=== PATIENT | female | born 1970 | race American Indian/Alaskan Native ===

== ENCOUNTER 2025-03-03 21:57 | Emergency (ER) | payer MEDICAID, SELFPAY ==
[2025-03-03 22:03] VITALS: BP 156/115; PULSE 96; RESP 19; TEMP 37.1; O2SAT 97; BMI 61.6
[2025-03-03 22:05] VITALS: PULSE 92; RESP 18; O2SAT 98; BMI 61.6
--- NOTE | 2025-03-03 22:38 | PD.EDSOB ---
ED SOB =RME/HPI General Chief Complaint: Dental/Oral/Throat Stated Complaint: THROAT IRRITATION Time Seen by Provider: 03/03/25 22:03 Arrival date/time: 03/03/25 21:57 RME / HPI RME / HPI Narrative: DR. GRANT MAIN ED EVALUATION: 54 y/o female with Hx of Cerebrovascular Accident, Atrial Fibrillation, Congestive Heart Failure, Hypertension, Chronic Obstructive Pulmonary Disease (COPD), Asthma, Gastroesophageal Reflux Disease, Renal Disease, Arthritis, Diabetes Mellitus Type 2, Anemia, Depression and Anxiety PEYMAN presents to ED c/o phlegm stuck in her throat x 1 day. Patient is not on medication to loosen the phlegm, but has tried to cough it up all day. She has been able to eat normally. Patient denies fever, cough, runny nose or any other associated symptoms or aggravating factors. No modifying factors, no radiation, no migration. No pain reported overall. Related Data Allergies Allergy/AdvReac Type Severity Reaction Status Date / Time Penicillins Allergy Verified 02/24/23 15:22 Review of Systems Review of Systems Systems Reviewed: All systems reviewed, normal except as documented Narrative Review of Systems: Gen: No fever, no chills, no weight loss, no weight loss EYES: No discharge, no visual changes, no pain HEENT: No ear pain, no congestion, no runny nose, no sore throat, phlegm stuck in throat PULM: No shortness of breath, no cough, no congestion CV: No chest pain, no dyspnea on exertion, no palpitations GI: No nausea, no vomiting, no diarrhea, no pain, no constipation : No frequency, no urgency, no dysuria Musc/skel: No joint pain, no back pain Skin: No rash Psyc: No hallucinations, no depression Heme/Lymph: No easy bleeding or bruising tendencies Neuro: No weakness, no headache Past Medical History Past Medical History NEUROLOGIC: Positive Cerebrovascular Accident CARDIAC: Positive Atrial Fibrillation, Congestive Heart Failure and Hypertension RESPIRATORY: Positive Chronic Obstructive Pulmonary Disease (COPD) and Asthma GASTROINTESTINAL: Positive Gastroesophageal Reflux Disease GENITOURINARY: Positive Renal Disease MUSCULOSKELETAL: Positive Arthritis ENDOCRINE: Positive Diabetes Mellitus Type 2 HEMATOLOGIC: Positive Anemia PSYCHO/SOCIAL: Positive Depression and Anxiety ED Exam Narrative Physical exam: GENERAL APPEARANCE: alert and oriented x 4, well-developed, well-nourished, no acute distress, Positive morbidly obese VITALS: All vitals were reviewed and the pulse ox is 96% on room air, which is normal according to my interpretation. HEENT: Normocephalic, atraumatic; pupils equal, round, reactive to light; EOMI; mucous membranes pink, moist; oropharynx clear NECK: Supple LUNGS: CTABL; no wheezes, no rales, no rhonchi HEART: Regular rate, regular rhythm; normal S1, S2; no murmurs ABDOMEN: non distended; normal BS; soft, no tenderness, no guarding, no rebound; no masses, no organomegaly, no hernia BACK: no CVA tenderness EXTREMITIES: atraumatic; no edema NEUROLOGIC: awake; alert and oriented x4; cranial nerves II-XII grossly intact; no focal sensory or motor deficits PSYCHIATRIC: appropriate mood and affect SKIN: warm, dry, normal color; no rashes Course Course Course Narrative: 2236: Chest x-ray, XR soft tissue neck, Guaifensin, and Loratadine ordered. Quality Measures none Orders Category Date Time Status XR chest 1V portable Stat Exams 03/03/25 22:37 Completed XR soft tissue neck Stat Exams 03/03/25 22:37 Completed guaiFENesin SYRUP [Robitussin Syrup] Med 03/03/25 22:37 Discontinued 200 mg PO X1 ONE lorataDINE [Claritin] Med 03/03/25 22:37 Discontinued 10 mg PO X1 ONE lorataDINE [Claritin] Med 03/03/25 23:00 Discontinued 10 mg PO X1 ONE Vital Signs Vital signs: Vital Signs Temperature 98.7 F 03/03/25 22:03 Pulse Rate 96 03/03/25 22:03 Respiratory Rate 19 03/03/25 22:03 Blood Pressure 156/115 H 03/03/25 22:03 Pulse Oximetry (%) 97 03/03/25 22:03 Oxygen Delivery Method Nasal Cannula 03/03/25 22:03 Oxygen Flow Rate 2 03/03/25 22:03 Shortness of Breath / Dyspnea MDM Narrative MDM Narrative:: Scribe Attestation: Francheska Escobar, am scribing for and in the presence of Dr. Grant. Provider Notation: Although this document has been carefully reviewed, there may still be some phonetic and other typographical errors. These errors are purely grammatical due to imperfections in the software program and should not be construed in any way to compromise the substance of the patient's medical care during this visit. Patient data External records reviewed:: [facility] previous records (Prior Ed records reviewed from 02/24/23. Patient was seen for Anemia.) and EMS form Clinical information provided by:: patient and EMS Social determinants that could affect healthcare access:: none Patient has the following chronic illnesses:: Cerebrovascular Accident, Atrial Fibrillation, Congestive Heart Failure, Hypertension, Chronic Obstructive Pulmonary Disease (COPD), Asthma, Gastroesophageal Reflux Disease, Renal Disease, Arthritis, Diabetes Mellitus Type 2, Anemia, Depression and Anxiety How is presenting disease/condition affected by chronic disease/condition?: exacerbated by Evaluation data The following diagnostics were reviewed and interpreted by me:: radiology exam(s) Lab and/or radiology exams considered but not ordered:: None Interpretation Summary: RADIOLOGY Chest X-Ray: CXR is ordered for determining etiology of I have personally reviewed the radiology data and agree with the radiologist's interpretation below: Patient: JOSE VALENTE Record#: [id number] Birthdate: 1970 Age/Sex: 54 / F Location: [facility] Attending Dr: Ordering Physician: Kriss Grant MD Date of Service: 03/03/25 Procedure(s): XR chest 1V portable Accession Number(s): [id number] cc: Gigi Hawthorne MD; NO PRIMARY/FAMILY,PHYSICIAN; Kriss Grant MD~ Examination: AP chest single view TECHNIQUE: AP portable upright chest single view Exam date time: March 03, 2025, 11:00 PM INDICATIONS: Coughing today. FINDINGS: Normal heart size [id number] elevation right hemidiaphragm No pneumonia No opaque foreign body IMPRESSION: No pneumonia identified No opaque foreign body Dictated By: Gigi Hawthorne MD Signed By: <Electronically signed by Gigi Hawthorne MD in OV> 03/03/25 2322 XR Soft Tissue Neck: XR soft tissue neck is ordered for determining etiology of swallowed foreign body. I have personally reviewed the radiology data and agree with the radiologist's interpretation below: [facility] [address] [place] [address] [place] [facility] Report Signed Patient: JOSE VALENTE Record#: [id number] Birthdate: 1970 Age/Sex: 54 / F Location: [facility] Attending Dr: Ordering Physician: Kriss Grant MD Date of Service: 03/03/25 Procedure(s): XR soft tissue neck Accession Number(s): [id number] cc: Gigi Hawthorne MD; NO PRIMARY/FAMILY,PHYSICIAN; Kriss Grant MD~ Examination: AP lateral soft tissue neck 2 views Technique AP lateral soft tissue neck 2 views Standing time: March 03, 2025 1059 hours INDICATIONS: Coughing today, ingested foreign body FINDINGS: Normal epiglottis. No opaque foreign body IMPRESSION: No opaque foreign body seen Dictated By: Gigi Hawthorne MD Signed By: <Electronically signed by Gigi Hawthorne MD in OV> 03/03/25 7611 Medications / Prescriptions Medications or Prescriptions considered but not ordered:: None Medication administrations:: Medication Administration History Discontinued Medications Guaifenesin (Guaifenesin Syrup 200 Mg/10 Ml Ud) 200 mg PO X1 ONE; Protocol Stop: 03/03/25 22:38 Last Admin: 03/03/25 23:18 Dose: 200 mg Documented By: EF Loratadine (Loratadine Liqd 1 Mg/1 Ml) 10 mg PO X1 ONE Stop: 03/03/25 22:38 Last Admin: 03/03/25 23:20 Dose: Not Given Documented By: EF Non-Admin Reason: Cancelled by Provider Loratadine (Loratadine 10 Mg Tablet) 10 mg PO X1 ONE Stop: 03/03/25 23:01 Last Admin: 03/03/25 23:18 Dose: 10 mg Documented By: EF See above if any Consultations Consultation(s) initiated? (list below): No Diagnosis Shortness of Breath Differential Diagnosis: other (Throat irritation vs Pharyngitis vs FB vs COPD exacerbation) Most likely diagnosis given after review of the tests above:: Throat irritation, Phlegm in throat. Admission Indicated Admission indicated?: not indicated Explain why admission is indicated or not indicated:: Did not meet admission criteria. Admission Request Was there a request for admission?: No Disposition Plan Disposition Plan: Discharge Discharge Attestation Discharge Attestation: The patient and all family members were given an opportunity to ask questions and understood the discharge instructions. Discharge instructions specifically effects, indications for sooner follow up or return to the emergency department, and the expected course of current diagnosis. Patient condition: Stable Discharge Plan Plan Patient Disposition: HOME (Self Care) Prescriptions/Referrals Referrals: No Primary/Family,Physician [Primary Care Provider] - In 1 week Problem List Clinical Impression: Throat irritation, Phlegm in throat Patient/Caregiver Discharge Instructions Education Materials: ED Symptoms With Uncertain Cause Print Language: Kinyarwanda Stand Alone Forms: Shonna Award Info., Patient Portal Info Letter
[2025-03-03 23:17] VITALS: BP 135/87; PULSE 96; RESP 17; TEMP 37.1; O2SAT 97
[2025-03-03] MEDS: guaiFENesin SYRUP 200 MG/10 ML UDC PO (23:18)
[2025-03-03] MEDS: lorataDINE 10 MG TABLET PO (23:18)
[2025-03-04 00:39] VITALS: BP 130/77; PULSE 94; RESP 15; TEMP 37; O2SAT 96
--- NOTE | 2025-03-04 01:25 | PC.NURSE ---
report called to evan head via telephone from [facility]
== END 2025-03-04 01:25 | disposition home or self-care (01) ==
PROVIDERS: Emergency Provider Emergency Medicine
DX: R07.0 Pain in throat (principal); T18.9XXA Foreign body of alimentary tract, part unspecified, initial encounter; W44.9XXA Unspecified foreign body entering into or through a natural orifice, initial encounter; J44.89 Other specified chronic obstructive pulmonary disease
CPT/HCPCS: 70360; 71045; 99283; A9270

== ENCOUNTER 2025-07-26 04:27 | Emergency (ER) | payer MEDICAID, SELFPAY ==
[2025-07-26] VITALS (9 sets, daily range): BP systolic 122–136; BP diastolic 77–106; PULSE 84–94; RESP 16–20; TEMP 36.5–37.2; O2SAT 94–97; BMI 61.4
--- NOTE | 2025-07-26 04:45 | EKG_ITS ---
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
--- NOTE | 2025-07-26 04:49 | XR_ITS ---
Examination: AP chest single view Technique one AP portable upright chest single view Date and time: July 26, 2025, 0521 hrs., Comparison March 03, 2025 Indications: Shortness of breath today Findings: No significant cardiac enlargement. Moderate elevation right hemidiaphragm. Moderate vascular congestion. No lobar pneumonia or pulmonary edema. Impression: Moderate vascular congestion.
--- NOTE | 2025-07-26 04:51 | EDNOTE_ITS ---
ED Chest Pain RME/HPI General Chief Complaint: Chest Pain Stated Complaint: CHEST PAIN Time Seen by Provider: 07/26/25 04:30 Source: patient and EMS Arrival date/time: 07/26/25 04:27 Mode of arrival: EMS RME / HPI RME / HPI narrative: Ms. Smith is a 55-year-old female with past medical history of CVA, atrial fibrillation on Eliquis, type 2 diabetes mellitus, morbid obesity, CKD stage III, GERD, congestive heart failure, osteoarthritis and COPD/asthma on 3 L at baseline who presented to [facility] emergency department with a chief complaint of chest pain. Patient reported that she woke up around 3 AM with the complaint of sharp pain in her left side of her chest radiating to her left arm, denies any incidence of similar pain in the past, endorses mild nausea associated with the pain. Patient denies any shortness of breath, palpitations, syncope, near syncope and dizziness. Patient reported that her pain has improved, Nitropatch noted on chest was given by EMS. Related Data Allergies Allergy/AdvReac Type Severity Reaction Status Date / Time Penicillins Allergy Verified 02/24/23 15:22 Review of Systems Review of Systems Systems Reviewed: All systems reviewed, normal except as documented Past Medical History Past Medical History NEUROLOGIC: Positive Cerebrovascular Accident CARDIAC: Positive Atrial Fibrillation, Congestive Heart Failure and Hypertension RESPIRATORY: Positive Chronic Obstructive Pulmonary Disease (COPD) and Asthma GASTROINTESTINAL: Positive Gastroesophageal Reflux Disease GENITOURINARY: Positive Renal Disease MUSCULOSKELETAL: Positive Arthritis ENDOCRINE: Positive Diabetes Mellitus Type 2 HEMATOLOGIC: Positive Anemia PSYCHO/SOCIAL: Positive Depression and Anxiety ED Exam Narrative Physical exam: Physical Exam General: Awake and in no acute distress. Conversational and non-toxic appearing. HEENT: Normocephalic, atraumatic, mucous membranes moist. On 3 L nasal cannula. Heart: Regular rate and rhythm, no murmurs. Lungs: Clear to auscultation with no wheezing or crackles. Limited exam due to body habitus. Abdomen: Soft, nondistended, obese, nontender, positive bowel sounds. ?No guarding or rebound tenderness. Neurologic: Alert and oriented x3, no gross neurological deficit, and patient able to move all 4 extremities. Extremities: Trace bilateral lower extremity edema Skin: No rash or ecchymoses. Course Quality Measures none Orders Category Date Time Status CT Screening NOW Care 07/26/25 07:29 Completed Sample Clerk Q4H START 00 Care 07/26/25 04:49 Completed Continuous Pulse Oximetry NOW Care 07/26/25 04:49 Completed EKG (ED ONLY) *Do not use* NOW Care 07/26/25 04:47 Completed Fingerstick [Bedside Blood Glucose] NOW Care 07/26/25 04:49 Completed Insert IV NOW Care 07/26/25 04:[address] angio chest abdomen pelvis Stat Exams 07/26/25 07:28 Completed CXRP [XR chest 1V portable] Stat Exams 07/26/25 04:49 Completed EKG (ED Only) Stat Exams 07/26/25 04:45 Draft BNP [B-Type Natriuretic Peptide] Stat Lab 07/26/25 04:30 Completed CBC Stat Lab 07/26/25 04:30 Completed CMP [Comprehensive Metabolic Panel] Stat Lab 07/26/25 04:30 Completed HCG,Qualitative Serum Stat Lab 07/26/25 07:33 Completed INR [Prothrombin Time with INR] Stat Lab 07/26/25 04:30 Completed Lactate (Lactic Acid) Stat Lab 07/26/25 04:30 Completed Magnesium Stat Lab 07/26/25 04:30 Completed PTT [Partial Thromboplastin Time] Stat Lab 07/26/25 04:30 Completed Procalcitonin Stat Lab 07/26/25 04:30 Completed Troponin I Stat Lab 07/26/25 04:30 Completed Troponin I Stat Lab 07/26/25 07:33 Completed Magnesium Sulfate 4 GM Ivpb [Magnesium Sulfate Ivpb] Med 07/26/25 06:11 Discontinued 4 gm in 50 ml IV X1 Vital Signs Vital signs: Vital Signs Temperature 98.4 F 07/26/25 04:41 Pulse Rate 91 07/26/25 04:41 Respiratory Rate 16 07/26/25 04:41 Blood Pressure 126/77 07/26/25 04:41 Pulse Oximetry (%) 94 L 07/26/25 04:41 Oxygen Delivery Method Nasal Cannula 07/26/25 04:41 Oxygen Flow Rate 3 07/26/25 04:41 Chest Pain MDM Narrative MDM Narrative:: #ACS workup #Cardiac chest pain 55-year-old female with past medical history of CVA, atrial fibrillation on Eliquis, type 2 diabetes mellitus, morbid obesity, CKD stage III, GERD, congestive heart failure, osteoarthritis and COPD/asthma on 3 L presented with cardiac chest pain. EKG at bedside shows unifocal PVCs, sinus rhythm, rate [address]-T changes Workup ordered CBC, CMP, troponin, lactate, Pro-Matty, BNP, PTT, INR, magnesium and chest x-ray. Patient placed on nurse monitoring, vitals reviewed stable. Patient will be signed off to [facility] ER physician Dr. Rivera for further evaluation and management. Case discussed with Attending Physician Dr. Efrain Marshall MD Internal Medicine PGY-2 Disclaimer: This note was dictated by speech recognition. Minor errors in supervisor microbiology technologists may be present due to voice recognition software. Patient data External records reviewed:: [facility] previous records, EMS form and [facility] records Clinical information provided by:: patient and EMS Social determinants that could affect healthcare access:: none Patient has the following chronic illnesses:: As Above How is presenting disease/condition affected by chronic disease/condition?: exacerbated by Evaluation data The following diagnostics were reviewed and interpreted by me:: EKG tracing(s) Lab and/or radiology exams considered but not ordered:: None Interpretation Summary: EKG at bedside shows unifocal PVCs, sinus rhythm, rate [address]-T changes Medications / Prescriptions Medications or Prescriptions considered but not ordered:: None Medication administrations:: Medication Administration History Discontinued Medications Magnesium Sulfate (Magnesium Sulfate Ivpb) 4 gm in 50 mls @ 12.5 mls/hr IV X1 ONE Stop: 07/26/25 10:10 Last Infusion: 07/26/25 10:40 Dose: Infused Documented By: Admin: 07/26/25 06:37 Dose: 12.5 mls/hr Documented By: THADDEUS As Above Consultations Consultation(s) initiated? (list below): No Diagnosis Chest Pain Differential Diagnosis: stable angina, unstable angina pectoris and atypical chest pain Most likely diagnosis given after review of the tests above:: Pending Workup Admission Indicated Admission indicated?: not indicated Admission Request Was there a request for admission?: No Disposition Plan Disposition Plan: other (specify) (Patient will be signed out to Dr. Rivera, [facility] ED physician) Discharge Plan Plan Patient Disposition: HOME (Self Care) Problem List Clinical Impression: Chest pain Patient/Caregiver Discharge Instructions Education Materials: Measuring Your Pain Additional Instructions: Please establish care with a financial services officer this week. Please return immediately if you develop recurrence of chest pain, shortness of breath or any other symptom of concern. Please follow-up with your primary care doctor as well within the next 1 to 2 days. Print Language: Vietnamese Stand Alone Forms: Shonna Award Info., Patient Portal Info Letter
[2025-07-26 05:23] LABS: Lactate (Lactic Acid) 2.0 mMol/L (0.4-2.0)
[2025-07-26 05:28] LABS: Basophils # (Auto) 0.0 Thou/mm3 (0.0-0.2); Basophils % (Auto) 0 % (0-2.5); Eosinophils # (Auto) 0.4 Thou/mm3 (0.0-0.5); Eosinophils % (Auto) 5 % (0-10); Hematocrit 32.2 % (36.0-46.0); Hemoglobin 9.9 g/dL (12.0-16.0); Immature Granulocytes Auto 0.02 Thou/mm3 (0.00-0.00); Lymphocytes # (Auto) 2.0 Thou/mm3 (1.0-4.8); Lymphocytes % (Auto) 24 % (10-50); Mean Corpuscular HGB Conc 30.7 g/dl (31.0-37.0); Mean Corpuscular Hemoglobin 24.3 pg (25.0-35.0); Mean Corpuscular Volume 79 fL (80-100); Monocytes # (Auto) 0.5 Thou/mm3 (0.0-0.8); Monocytes % (Auto) 6 % (0-12); Neutrophils # (Auto) 5.3 Thou/mm3 (1.8-7.7); Neutrophils % (Auto) 64 % (37-80); Nucleated Red Blood Cell # 0.00 Thou/mm3 (0.00-0.00); Nucleated Red Blood Cell % 0 /100 WBC (0); Platelet Count 262 Thou/mm3 (140-440); RDW Standard Deviation 45.2 fL (36.4-46.3); Red Blood Count 4.08 Miln/mm3 (4.00-5.20); White Blood Count 8.3 Thou/mm3 (3.6-11.0)
[2025-07-26 05:40] LABS: INR 1.0 (0.9-1.3); Partial Thromboplastin Time 27.7 Seconds (22.0-36.0); Prothrombin Time 11.4 Seconds (9.0-12.2)
[2025-07-26 05:55] LABS: Alanine Aminotransferase 27 U/L (10-49); Albumin, Serum 3.6 gm/dL (3.5-5.0); Albumin/Globulin Ratio 1.2 (1.2-2.2); Alkaline Phosphatase 109 U/L (46-116); Anion Gap 6 (7-16); Aspartate Amino Transferase 33 U/L (0-34); BUN/Creatinine Ratio 17 Ratio (12-20); Bilirubin,Total 0.4 mg/dL (0.3-1.2); Blood Urea Nitrogen 15 mg/dL (9-23); Calcium 9.2 mg/dL (8.3-10.6); Calcium (Corrected) 9.5 mg/dL (8.5-10.1); Carbon Dioxide 36.0 mMol/L (20.0-31.0); Chloride 96 mMol/L (98-107); Creatinine (Component) 0.9 mg/dL (0.6-1.3); Estimated Creatinine Clearance 97.7 mL/min (>60); Globulin 2.9 gm/dL (2.3-3.5); Glucose 250 mg/dL (74-106); Magnesium 1.4 mg/dL (1.6-2.6); Osmolality,Calculated 284 (275-295); Potassium 3.7 mMol/L (3.4-5.1); Procalcitonin 0.05 ng/ml (0.0-0.49); Sodium 138 mMol/L (136-145); Total Protein 6.5 gm/dL (5.7-8.2); Troponin I < 0.020 ng/mL (0.0-0.045); eGFR > 60 See Note
[2025-07-26 06:03] LABS: B-Type Natriuretic Peptide 27 pg/mL (0-100)
[2025-07-26] MEDS: Magnesium Sulfate 4 GM Ivpb 4 GM/50 ML BAG IV (06:37)
--- NOTE | 2025-07-26 07:22 | EDNOTE_ITS ---
Emergency Room Addendum Addendum Narrative: Patient is a 55-year-old female that is in the emergency department with chest pain. Patient has a history of stroke, A-fib on Eliquis, diabetes, morbid obesity chronic kidney disease CHF, COPD she is always on 3 L of oxygen at home. Prior provider evaluated patient. Ordered labs EKG chest x-ray. Patient's chest pain resolved with nitroglycerin prior to arrival. EKG performed this morning at 4:47 AM notable for sinus rhythm with frequent PVCs. Normal intervals, nonspecific T wave changes, not a cardiac alert. Labs without evidence of leukocytosis, no left shift, hemoglobin is 9.9 improved from prior. No significant acute electrolyte abnormalities patient is hypomagnesemic, repleted in the emergency department. No transaminitis. Troponin not elevated on initial assessment. BNP normal. Procalcitonin not elevated. Chest x-ray with high riding right diaphragm, also widened mediastinum. Ordered CT angio of the chest abdomen and pelvis. On my assessment, patient is resting comfortably in bed, not in distress. States that her chest pain has since resolved. She continues to have frequent PVCs on the monitor. Patient states that she does not know if she has had a sanitation tank washer in the past. She has never had a heart attack. With regards to her stroke, patient is able to move all 4 extremities however the left lower extremity she is not able to flex her foot. Patient lives at convalescent home. Delta troponin without any elevation. On multiple reevaluations, patient hemodynamically stable not in distress chest pain has not recurred. CT chest abdomen pelvis did not show any evidence of dissection or pulmonary embolus, no other acute abnormalities. Extensive conversation with the patient, patient feels comfortable being discharged back to her convalescent home. I requested the patient follow-up with her sanitation tank washer this week and her primary care doctor within the next 1 to 2 days. Patient is to return immediately if she has worsening symptoms or new symptoms of concern.
--- NOTE | 2025-07-26 07:28 | XR_ITS ---
Examination: CTA chest, with intravenous contrast. CTA abdomen, with intravenous contrast. CTA pelvis, with intravenous contrast. 2-D sagittal and coronal reconstructions. 3-D reconstructions. Date and time of exam: July 26, 2025, 1059 hours INDICATIONS: Onset chest and abdominal pain today with shortness of breath CTDI vol (mgy) 51.2 DLP (MGycm) 1446 Technique: Multiple CTA images, 2.0 mm slice thickness, obtained chest, abdomen, pelvis, with the high-resolution 64 slice scanner. 100 cc Isovue-370 is administered intravenously. Sagittal and coronal 2-D reconstructions are obtained. 3-D reconstructions, angiographic images are obtained. 3-D postprocessing, including vascular maximum intensity projections. Low dose protocols were performed. One or more of the following dose reduction techniques were used; automated exposure control, adjustment of the mA and/or KV according to patient size, use of iterative reconstruction technique. Findings: No thoracic aortic aneurysm dilatation or dissection Pulmonary artery segments are not enlarged No pulmonary artery filling defects No pneumonia pulmonary edema or pleural disease Minor atelectasis in the lower lung zones Localized weakening of the lateral abdominal wall on the right, the skin images do not include major portions of the right lateral abdomen No focal liver lesions, hepatomegaly 19 cm No gallstones Spleen not enlarged No pancreatic or adrenal mass Moderate scarring both kidneys, no hydronephrosis No abdominal aortic aneurysmal dilatation, no abdominal aortic dissection No bowel obstruction Atrophic uterus Urinary bladder intact Severe osteopenia IMPRESSION: No thoracic or abdominal aortic aneurysm or dissection Negative for pulmonary artery emboli No pneumonia pulmonary edema or pleural disease Limited study, the right lateral abdomen is not included on this exam secondary to patient's size No bowel obstruction Moderate scarring both kidneys
[2025-07-26 07:56] LABS: Troponin I < 0.020 ng/mL (0.0-0.045)
[2025-07-26 08:56] LABS: HCG,Qualitative Serum Negative
--- NOTE | 2025-07-26 10:50 | PC.NURSE ---
Patient to CT
--- NOTE | 2025-07-26 12:40 | PC.SS ---
Addendum entered by LINWOOD Roque 07/26/25 14:07: [employer] FACILITY OPERATOR received phone call from [employer], Luba from [employer] provided ETA 1530. [employer]ILITY OPERATOR notified bedside nurse Tonja who is covering bedside nurse Maria A of ETA 1530. Original Note: [employer] FACILITY OPERATOR was informed by bedside nurse that patient needs transportation, patient is on 3L of oxygen. [employer] FACILITY OPERATOR contacted [facility] to schedule transportation. [employer] FACILITY OPERATOR submitted PCS form via [employer], pending ETA.
--- NOTE | 2025-07-26 12:40 | PC.NURSE ---
PATIENT CLEANED AND CHANGED NEW LINEN PLACED. CONTACTED BONE PROCESS OPERATOR TO SET PATIENT UP FOR TRANSPORT BACK TO FACILITY.
--- NOTE | 2025-07-26 15:10 | PC.NURSE ---
REPORT CALLED TO [facility] TRANSITIONAL STAFF VLAD
== END 2025-07-26 15:14 | disposition home or self-care (01) ==
PROVIDERS: Emergency Provider Emergency Medicine
DX: R07.9 Chest pain, unspecified (principal); Z86.73 Personal history of transient ischemic attack (TIA), and cerebral infarction without residual deficits; N18.30 Chronic kidney disease, stage 3 unspecified; E11.22 Type 2 diabetes mellitus with diabetic chronic kidney disease; I48.91 Unspecified atrial fibrillation; E66.01 Morbid (severe) obesity due to excess calories; I50.9 Heart failure, unspecified; M19.90 Unspecified osteoarthritis, unspecified site; J44.89 Other specified chronic obstructive pulmonary disease; I49.3 Ventricular premature depolarization
CPT/HCPCS: 36415; 71045; 71275; 74174; 80053; 83605; 83735; 83880; 84145; 84484; 84703; 85025; 85610; 85730; 93005; 96365; 96366; 99284; A4649; J3475; Q9967

== ENCOUNTER 2025-08-13 17:08 | Emergency (ER) | payer MEDICAID, SELFPAY ==
[2025-08-13] VITALS (7 sets, daily range): BP systolic 106–123; BP diastolic 67–77; PULSE 90–98; RESP 12–19; TEMP 36.6–36.9; O2SAT 97–99; BMI 61.4
--- NOTE | 2025-08-13 18:22 | PD.EDVAGBL ---
ED OB Contraction Preg RMI/HPI General Chief complaint: Vaginal Bleeding Stated complaint: vaginal bleeding Time Seen by Provider: 08/13/25 18:22 Arrival date/time: 08/13/25 17:08 RME / HPI RME / HPI Narrative: DR. MCKEON MAIN ED EVALUATION: Patient presenting with ongoing vaginal bleeding x 2 weeks with passage of clots. Patient is post-menopausal at age 42 and reports similar episode several months ago with spontaneous resolution. Denies pelvic pain or cramping, although reports dizziness and lightheadedness. Denies fever, chills, or dysuria. PMH: HTN, Baseline LLE weakness PSH: Hernia repair, x3 Allergies: Penicillin (anaphylactic) Social: Non-drinker, non-smoker, no illicit drug abuse Related Data Allergies Allergy/AdvReac Type Severity Reaction Status Date / Time Penicillins Allergy Verified 08/13/25 17:18 Review of Systems Review of Systems Systems Reviewed: All systems reviewed, normal except as documented Past Medical History Past Medical History NEUROLOGIC: Positive Cerebrovascular Accident CARDIAC: Positive Atrial Fibrillation, Congestive Heart Failure and Hypertension RESPIRATORY: Positive Chronic Obstructive Pulmonary Disease (COPD) GASTROINTESTINAL: Positive Gastroesophageal Reflux Disease and Obesity MUSCULOSKELETAL: Positive Arthritis HEMATOLOGIC: Positive Anemia PSYCHO/SOCIAL: Positive Depression and Anxiety ED Exam Narrative Physical exam: GEN. APPEARANCE: The patient is alert awake oriented X-3 in no distress, lying down comfortably, does not look ill/toxic. Patient has good eye contact. Patient is cooperative. VITALS: All vitals were reviewed and the pulse ox is 99% on 3L/min via NC which is normal according to my interpretation. HEENT: Normocephalic, atraumatic. Pupils are equal and reactive. Oral mucosa is moist. Patent Nares NECK: Supple, nontender, no thyromegaly, no meningismus, no JVD, no step offs CHEST: Symmetrical, atraumatic, and with equal expansion , Nontender on palpation no deformity and no crepitus. CARDIOVASCULAR: Heart regular rhythm no murmur or gallop rub or extra beats. LUNGS: Clear to auscultation bilaterally with symmetrical chest rise. No laboring tachypnea or wheezing. No intercostal subcostal retraction. No rales and no rhonchi. ABDOMEN: Soft, obese, nontender to palpation, no guarding or rebound tenderness. There are no abnormal masses palpated. Active and normal bowel sounds. EXTREMITIES: Nontender. No edema. No cyanosis. Patient is able to move all 4 extremities well, with full ROM and good CSM. SKIN: Warm and dry, no jaundice or rashes noted. MUSCULOSKELETAL: No lubar or midline bony tenderness. There is no CVA tenderness. No paraspinal muscle spasm or tenderness. NEURO: Patient is HINDS x 4, Cranial nerves II through XII grossly intact. 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 PSYCHIATRIC: Patient is in normal mood and affect, cooperative, no SI or HI or hallucinations. Course Quality Measures none Orders Category Date Time Status Sound Designer NOW Care 08/13/25 19:43 Active Insert IV NOW Care 08/13/25 18:13 Active Transfuse,blood/blood products NOW Care 08/13/25 19:42 Active US pelvic complete Stat Exams 08/13/25 18:37 Completed Antibody Identification Stat Lab 08/13/25 18:14 Results Beta HCG,Quantitative Stat Lab 08/13/25 18:14 Completed CBC [CBC] Stat Lab 08/13/25 18:14 Completed CMP [Comprehensive Metabolic Panel] Stat Lab 08/13/25 18:14 Completed Path Review Blood Smear Stat Lab 08/13/25 18:14 Completed Red Blood Cells Stat Lab 08/13/25 18:14 Results Type and Screen Stat Lab 08/13/25 18:14 Results Urinalysis, C/S if Indicated Stat Lab 08/13/25 18:23 Ordered Sodium Chloride 0.9% 500 ml [Ns] 500 ml Med 08/13/25 18:23 Discontinued IV 250 mls/hr Vital Signs Vital signs: Vital Signs Temperature 97.9 F 08/13/25 17:15 Pulse Rate 98 08/13/25 17:15 Respiratory Rate 19 08/13/25 17:15 Blood Pressure 123/77 08/13/25 17:15 Pulse Oximetry (%) 97 08/13/25 17:15 Oxygen Delivery Method Nasal Cannula 08/13/25 17:15 Oxygen Flow Rate 3 08/13/25 17:15 Vaginal Bleeding MDM Narrative MDM Narrative: Scribe Attestation: IFrancheska, am scribing for and in the presence of Dr. Mckeon. Provider Notation: Although this document has been carefully reviewed, there may still be some phonetic and other typographical errors. These errors are purely grammatical due to imperfections in the software program and should not be construed in any way to compromise the substance of the patient's medical care during this visit. Patient presenting with ongoing vaginal bleeding x 2 weeks with passage of clots. Patient is post-menopausal at age 42 and reports similar episode several months ago with spontaneous resolution. Please see PE findings. Laboratory markers, including CBC and serum chemistries, pertinent for WBC 8.6, hemoglobin of 6.0, and platelet count of 292 with no left shift or bandemia. Serum chemistries demonstrate elevated CO2 of 39. Patient placed on threat monitoring analyst, hydrated with normal saline to correct volume deficit. Patient was typed and cross for RBC for which she was transfused over several hours. Patient underwent pelvic US which demonstrated degenerative 2 x 2 x 2 degenerative fibroid. Final diagnoses include dysfunctional uterine bleeding, symptomatic anemia, and uterine fibroid. Disposition, discharge to home, TXA for hemorrhage, and to recommend F/U with [facility] for assessment of possible hysterectomy. Patient data External records reviewed:: [facility] previous records (Reviewed prior ED records from 07/26/25. Patient was seen for Chest pain.) Clinical information provided by:: patient Social determinants that could affect healthcare access:: none Patient has the following chronic illnesses:: Cerebrovascular Accident, Atrial Fibrillation, Congestive Heart Failure, Hypertension, Chronic Obstructive Pulmonary Disease (COPD), Gastroesophageal Reflux Disease, Obesity, Arthritis, Anemia, Depression and Anxiety How is presenting disease/condition affected by chronic disease/condition?: exacerbated by Evaluation data The following diagnostics were reviewed and interpreted by me:: lab results and radiology exam(s) Lab and/or radiology exams considered but not ordered:: None Interpretation Summary: RADIOLOGY Pelvis US: FINDINGS: Uterus 11.7 cm uterine fundal area fibroid degeneration 3.2 x 2.0 cm Endometrial stripe 0.6 cm with mild fluid in the endometrium Right ovary obscured by bowel gas Left ovary 4.0 cm arterial flow IMPRESSION: 3.2 x 1.9 x 2.0 cm uterine fundal area of fibroid degeneration The endometrial stripe is thickened 0.6 cm in this postmenopausal individual, recommend transvaginal pelvic sonography follow-up Medications / Prescriptions Medications or Prescriptions considered but not ordered:: None Medication administrations:: Medication Administration History Discontinued Medications Sodium Chloride (Ns) 500 mls @ 250 mls/hr IV .Q2H ONE Stop: 08/13/25 20:22 Last Infusion: 08/13/25 22:17 Dose: Infused Documented By: Admin: 08/13/25 20:12 Dose: 250 mls/hr Documented By: STEVEN See above if any Consultations Consultation(s) initiated? (list below): No Diagnosis Vaginal Bleeding Differential Diagnosis: dysfunctional uterine bleeding, menometrorrhagia, ectopic without intrauterine and vaginal bleeding Most likely diagnosis given after review of the tests above:: dysfunctional uterine bleeding, symptomatic anemia, and uterine fibroid. Admission Indicated Admission indicated?: not indicated Explain why admission is indicated or not indicated:: Patient does not meet admission criteria Admission Request Was there a request for admission?: No Disposition Plan Disposition Plan: Discharge Discharge Attestation Discharge Attestation: The patient and all family members were given an opportunity to ask questions and understood the discharge instructions. Discharge instructions specifically effects, indications for sooner follow up or return to the emergency department, and the expected course of current diagnosis. Patient condition: Stable Critical Care Time Critical Care Time Critical Care Time: Yes Total Critical Care Time (min.): 40 Attestation: The high probability of sudden, clinically significant deterioration in the patient?s condition required the highest level of my preparedness to intervene urgently. The services I provided to this patient were to treat and/or prevent clinically significant deterioration. Services included the following: chart data review, reviewing nursing notes and/or old charts, documentation time, funeral pre need consultant collaboration regarding findings and treatment options, medication orders and management, direct patient care, vital sign assessments and ordering, interpreting and reviewing diagnostic studies and lab tests. Aggregate critical care time includes only time during which I was engaged in work directly related to the patient?s care, as described above, whether at bedside or elsewhere in the Emergency Department. It did not include time spent performing other reported procedures or the services of residents, students, nurses or physician assistants. Discharge Plan Plan Patient Disposition: HOME (Self Care) Prescriptions/Referrals Referrals: No Primary/Family,Physician [Primary Care Provider] - In 1 week Problem List Clinical Impression: Dysfunctional uterine bleeding, Uterine fibroid, Symptomatic anemia Patient/Caregiver Discharge Instructions Print Language: Latvian Stand Alone Forms: Shonna Award Info., Patient Portal Info Letter
--- NOTE | 2025-08-13 18:37 | XR_ITS ---
Examination: Pelvic ultrasound, transabdominal, complete Technique: Transabdominal ultrasound of the pelvis performed using grayscale imaging Date and time of exam: August 13, 2025, 1847 hours INDICATIONS: Vaginal bleeding beginning 1 week ago FINDINGS: Uterus 11.7 cm uterine fundal area fibroid degeneration 3.2 x 2.0 cm Endometrial stripe 0.6 cm with mild fluid in the endometrium Right ovary obscured by bowel gas Left ovary 4.0 cm arterial flow IMPRESSION: 3.2 x 1.9 x 2.0 cm uterine fundal area of fibroid degeneration The endometrial stripe is thickened 0.6 cm in this postmenopausal individual, recommend transvaginal pelvic sonography follow-up
[2025-08-13 19:02] LABS: Basophils # (Auto) 0.0 Thou/mm3 (0.0-0.2); Basophils % (Auto) 1 % (0-2.5); Eosinophils # (Auto) 0.5 Thou/mm3 (0.0-0.5); Eosinophils % (Auto) 5 % (0-10); Immature Granulocytes Auto 0.05 Thou/mm3 (0.00-0.00); Lymphocytes # (Auto) 1.9 Thou/mm3 (1.0-4.8); Lymphocytes % (Auto) 22 % (10-50); Mean Corpuscular HGB Conc 30.3 g/dl (31.0-37.0); Mean Corpuscular Hemoglobin 24.5 pg (25.0-35.0); Mean Corpuscular Volume 81 fL (80-100); Monocytes # (Auto) 0.6 Thou/mm3 (0.0-0.8); Monocytes % (Auto) 7 % (0-12); Neutrophils # (Auto) 5.6 Thou/mm3 (1.8-7.7); Neutrophils % (Auto) 65 % (37-80); Nucleated Red Blood Cell # 0.02 Thou/mm3 (0.00-0.00); Nucleated Red Blood Cell % 0 /100 WBC (0); Platelet Count 292 Thou/mm3 (140-440); RDW Standard Deviation 48.3 fL (36.4-46.3); Red Blood Count 2.45 Miln/mm3 (4.00-5.20); White Blood Count 8.6 Thou/mm3 (3.6-11.0)
[2025-08-13 19:11] LABS: Hematocrit 19.8 % (36.0-46.0); Hemoglobin 6.0 g/dL (12.0-16.0)
[2025-08-13 19:17] LABS: Alanine Aminotransferase 23 U/L (10-49); Albumin, Serum 3.6 gm/dL (3.5-5.0); Albumin/Globulin Ratio 1.2 (1.2-2.2); Alkaline Phosphatase 106 U/L (46-116); Anion Gap 7 (7-16); Aspartate Amino Transferase 32 U/L (0-34); BUN/Creatinine Ratio 10 Ratio (12-20); Beta HCG,Quantitative < 1 mIU/mL (<5.0); Bilirubin,Total 0.4 mg/dL (0.3-1.2); Blood Urea Nitrogen 10 mg/dL (9-23); Calcium 8.8 mg/dL (8.3-10.6); Calcium (Corrected) 9.1 mg/dL (8.5-10.1); Carbon Dioxide 39.0 mMol/L (20.0-31.0); Chloride 94 mMol/L (98-107); Creatinine (Component) 1.0 mg/dL (0.6-1.3); Estimated Creatinine Clearance 88.0 mL/min (>60); Globulin 2.9 gm/dL (2.3-3.5); Glucose 261 mg/dL (74-106); Osmolality,Calculated 287 (275-295); Potassium 3.4 mMol/L (3.4-5.1); Sodium 140 mMol/L (136-145); Total Protein 6.5 gm/dL (5.7-8.2); eGFR > 60 See Note
[2025-08-13] MEDS: SODIUM CHLORIDE 0.9% 500 ML 500 ML 250 ML IV (20:12)
[2025-08-13 20:33] LABS: Path Review Blood Smear Sent to Pathologist
[2025-08-14] VITALS (7 sets, daily range): BP systolic 126–143; BP diastolic 73–95; PULSE 82–93; RESP 16–18; TEMP 36.4–36.9; O2SAT 96–99
--- NOTE | 2025-08-14 05:55 | PC.NURSE ---
REPORT CALLED AND GIVEN TO NURSING STAFF AT [facility].
== END 2025-08-14 05:58 | disposition home or self-care (01) ==
PROVIDERS: Emergency Provider Emergency Medicine
DX: N93.8 Other specified abnormal uterine and vaginal bleeding (principal); D25.9 Leiomyoma of uterus, unspecified; D64.9 Anemia, unspecified; I10 Essential (primary) hypertension; Z78.0 Asymptomatic menopausal state
CPT/HCPCS: 36415; 36430; 76856; 80053; 81001; 84702; 85025; 86850; 86870; 86900; 86901; 86921; 86922; 96360; 96361; 99284; J7999; P9016

== ENCOUNTER 2025-09-27 04:03 | Emergency (ER) | payer MEDICAID, SELFPAY ==
[2025-09-27] VITALS (12 sets, daily range): BP systolic 93–151; BP diastolic 62–94; PULSE 83–103; RESP 14–22; TEMP 36.6–39.6; O2SAT 95–100; BMI 61.4
--- NOTE | 2025-09-27 04:06 | EDNOTE_ITS ---
ED Recheck Abnl Lab Rx-RME/HPI General Chief Complaint: Recheck/Abnormal Lab/Rx Stated Complaint: ABNORMAL LABS Time Seen by Provider: 09/27/25 04:07 Arrival date/time: 09/27/25 04:03 RME / HPI RME / HPI narrative: Dr. Zuniga?s Main ED Evaluation: 55yo female BIBDionne from [facility] presents to the ED for a chief complaint of low hemoglobin. Per EMS, patient had labs done yesterday and SNF staff received the lab report today showing the patient's hemoglobin was low at 6.6. Patient denies any headache, dizziness, lightheadedness, fatigue, worsening shortness of breath, hematemesis, hematochezia, melena, or any other associated symptoms. Related Data Previous Rx's ?Medication ?Instructions ?Recorded docusate sodium 100 mg capsule 100 mg PO BID #60 caps 08/14/25 (Colace) ferrous sulfate 325 mg (65 mg 325 mg PO BID #60 tabs 1 iron) tablet (Feosol) tranexamic acid 650 mg tablet 650 mg PO Q8H vag bleedi ng #30 tabs 08/14/25 Allergies Allergy/AdvReac Type Severity Reaction Status Date / Time Penicillins Allergy Verified 08/13/25 17:18 Review of Systems Review of Systems Systems Reviewed: All systems reviewed, normal except as documented ED Exam Narrative Physical exam: Generally patient is alert, morbidly obese but no obvious distress, heart regular rate and rhythm, lungs clear to auscultation equal bilaterally, abdomen is obese soft and nontender, extremities show no edema, neurologic exam shows no focal motor deficit Course Quality Measures none Orders Category Date Time Status Transfuse,blood/blood products NOW Care 09/27/25 04:32 Active BMP [Basic Metabolic Panel] Stat Lab 09/27/25 04:15 Received CBC Stat Lab 09/27/25 04:15 Completed Path Review Blood Smear Stat Lab 09/27/25 04:15 Completed Type and Screen Stat Lab 09/27/25 04:15 Received rbc [Red Blood Cells] Stat Lab 09/27/25 04:31 Ordered Vital Signs Vital signs: Vital Signs Temperature 98.5 F 09/27/25 04:08 Pulse Rate 96 09/27/25 04:08 Respiratory Rate 20 09/27/25 04:08 Blood Pressure 135/78 H 09/27/25 04:08 Pulse Oximetry (%) 26 L 09/27/25 04:08 Oxygen Delivery Method Room Air 09/27/25 04:08 Recheck / Abnormal Lab / Rx MDM Narrative MDM Narrative:: Scribe Attestation: 09/27/25 - Krys Escobar am scribing for and in the presence of Dr. Zuniga. I investigated the patient's case in the computer. Patient has been anemic multiple times in the past. She denies any current vaginal bleeding or vomiting or diarrhea. She has no specific complaints at this time. Hemoglobin drawn yesterday from an outside facility came back at 6.6. Hemoglobin here in the emergency room this morning was 6.5. Patient will be typed and crossed and transfused with 2 units of packed RBCs. She will then be discharged back to her extended care facility. Patient data External records reviewed:: [facility] previous records (Per chart review, patient was seen here on 08/13/25 for DUB.) Clinical information provided by:: patient Social determinants that could affect healthcare access:: housing (SNF resident) Patient has the following chronic illnesses:: CVA, aFib on Eliquis, DMII, CKD stage III, GERD, CHF, osteoarthritis and COPD/asthma on 3 L at baseline How is presenting disease/condition affected by chronic disease/condition?: uneffected by Evaluation data The following diagnostics were reviewed and interpreted by me:: lab results Lab and/or radiology exams considered but not ordered:: none Interpretation Summary: See MDM Medications / Prescriptions Medications or Prescriptions considered but not ordered:: none Medication administrations:: none Consultations Consultation(s) initiated? (list below): No Diagnosis Recheck Differential Diagnosis: other (See MDM) Most likely diagnosis given after review of the tests above:: see clinical impression below Admission Indicated Admission indicated?: not indicated Admission Request Was there a request for admission?: No Disposition Plan Disposition Plan: Discharge Discharge Attestation Discharge Attestation: The patient and all family members were given an opportunity to ask questions and understood the discharge instructions. Discharge instructions specifically effects, indications for sooner follow up or return to the emergency department, and the expected course of current diagnosis. Patient condition: Stable Discharge Plan Plan Patient Disposition: Xfer Skilled Nsg Fac (SNF) Prescriptions/Referrals Prescriptions/Med Rec: No Action ferrous sulfate [Feosol] 325 mg (65 mg iron) tablet 325 mg PO BID Qty: 60 0RF docusate sodium [Colace] 100 mg capsule 100 mg PO BID Qty: 60 0RF tranexamic acid 650 mg tablet 650 mg PO Q8H Qty: 30 0RF Problem List Clinical Impression: Anemia Patient/Caregiver Discharge Instructions Education Materials: Anemia Additional Instructions: Patient may be discharged after transfusion is complete. Print Language: Guinean Stand Alone Forms: Shonna Award Info., Patient Portal Info Letter
[2025-09-27 04:25] LABS: Basophils # (Auto) 0.0 Thou/mm3 (0.0-0.2); Basophils % (Auto) 0 % (0-2.5); Eosinophils # (Auto) 0.4 Thou/mm3 (0.0-0.5); Eosinophils % (Auto) 4 % (0-10); Hematocrit 21.9 % (36.0-46.0); Immature Granulocytes Auto 0.04 Thou/mm3 (0.00-0.00); Lymphocytes # (Auto) 2.0 Thou/mm3 (1.0-4.8); Lymphocytes % (Auto) 20 % (10-50); Mean Corpuscular HGB Conc 29.7 g/dl (31.0-37.0); Mean Corpuscular Hemoglobin 24.2 pg (25.0-35.0); Mean Corpuscular Volume 81 fL (80-100); Monocytes # (Auto) 0.6 Thou/mm3 (0.0-0.8); Monocytes % (Auto) 6 % (0-12); Neutrophils # (Auto) 6.8 Thou/mm3 (1.8-7.7); Neutrophils % (Auto) 69 % (37-80); Nucleated Red Blood Cell # 0.00 Thou/mm3 (0.00-0.00); Nucleated Red Blood Cell % 0 /100 WBC (0); Platelet Count 324 Thou/mm3 (140-440); RDW Standard Deviation 46.7 fL (36.4-46.3); Red Blood Count 2.69 Miln/mm3 (4.00-5.20); White Blood Count 9.9 Thou/mm3 (3.6-11.0)
[2025-09-27 04:28] LABS: Hemoglobin 6.5 g/dL (12.0-16.0)
[2025-09-27 04:29] LABS: Path Review Blood Smear Sent to Pathologist
[2025-09-27 04:42] LABS: Anion Gap 8 (7-16); BUN/Creatinine Ratio 12 Ratio (12-20); Blood Urea Nitrogen 12 mg/dL (9-23); Calcium 9.2 mg/dL (8.3-10.6); Carbon Dioxide 35.1 mMol/L (20.0-31.0); Chloride 97 mMol/L (98-107); Creatinine (Component) 1.0 mg/dL (0.6-1.3); Estimated Creatinine Clearance 88.0 mL/min (>60); Glucose 185 mg/dL (74-106); Osmolality,Calculated 284 (275-295); Potassium 3.4 mMol/L (3.4-5.1); Sodium 140 mMol/L (136-145); eGFR > 60 See Note
--- NOTE | 2025-09-27 14:37 | PC.SS ---
SS was informed by charge nurse, Magali that patient needed transportation back to [facility]. [facility], however they informed SS they are not able to find patient in the system. SS had RN, Db2 Developer, Judith sign ADAN form. SS set up transportation with [facility] for 1700. SS updated patient's nurse and updated Maricruz from [facility]. SS will stand by for further needs.
== END 2025-09-27 17:07 | disposition skilled nursing facility (03) ==
PROVIDERS: Emergency Provider Emergency Medicine; PCP Hospitalist
DX: D64.9 Anemia, unspecified (principal)
CPT/HCPCS: 36415; 36430; 80048; 85025; 86850; 86870; 86900; 86901; 86921; 86922; 99283; P9016

== ENCOUNTER → 2025-10-07 | Outpatient (CLI) | payer MEDICAID, SELFPAY ==
--- NOTE | 2025-10-07 09:32 | XR_ITS ---
Examination: Transvaginal ultrasound of the pelvis, complete Technique: Transvaginal sonographic images pelvis performed using campbell scale imaging Exam date and time: October 07, 2025, 0952 hours INDICATIONS: Postmenopausal bleeding beginning 1 month ago FINDINGS: Patient size severely limits this study No diagnostic visualization of the uterus or ovaries IMPRESSION: Severely limited study as above Given the patient's presentation, recommend MRI pelvis follow-up pre and postcontrast to diagnostically assess the endometrium.
== END | disposition home or self-care (01) ==
PROVIDERS: PCP Hospitalist; Referring Provider Hospitalist; Visit Provider Hospitalist
DX: D25.9 Leiomyoma of uterus, unspecified (principal)
CPT/HCPCS: 76830

== ENCOUNTER 2025-10-10 22:00 | Inpatient (IN) | payer MEDICAID, SELFPAY ==
[2025-10-10 22:05] VITALS: BP 102/60; PULSE 102; RESP 18; TEMP 37.2; O2SAT 97
[2025-10-10 22:06] VITALS: BMI 61.4
[2025-10-10 22:11] VITALS: PULSE 103; RESP 20; O2SAT 100
--- NOTE | 2025-10-10 22:16 | EDNOTE_ITS ---
ED OB Contraction Preg RMI/HPI General Chief complaint: Vaginal Bleeding Stated complaint: VAGINAL BLEEDING Time Seen by Provider: 10/10/25 22:25 Arrival date/time: 10/10/25 22:00 RME / HPI RME / HPI Narrative: Dr. Christensen?s Main ED Evaluation: 55yo female who was seen by the undersigned for abnormal uterine bleeding thought to be due to degenerative fibroid presents with recurrent escalating vaginal bleeding with noted clots with associated lightheadedness, dizziness, and near syncope. SNF staff members noted elevated heart rate and report 5 pads within the last hour used. No reported chest pain or shortness of breath. PMH includes DM, CHF, anoxic brain injury, uterine fibroid, aFib on Eliquis. PSH noncontributory. Nondrinker, nonsmoker, no illicit drug use. Of note, patient is a full code per [facility]. Related Data Previous Rx's ?Medication ?Instructions ?Recorded docusate sodium 100 mg capsule 100 mg PO BID #60 caps 08/14/25 (Colace) ferrous sulfate 325 mg (65 mg 325 mg PO BID #60 tabs 1 iron) tablet (Feosol) tranexamic acid 650 mg tablet 650 mg PO Q8H vag bleedi ng #30 tabs 08/14/25 Allergies Allergy/AdvReac Type Severity Reaction Status Date / Time Penicillins Allergy Verified 10/10/25 22:11 Review of Systems Review of Systems Systems Reviewed: All systems reviewed, normal except as documented Past Medical History Past Medical History NEUROLOGIC: Positive Cerebrovascular Accident CARDIAC: Positive Atrial Fibrillation, Hypercholesterolemia, Congestive Heart Failure and Hypertension; Negative Cardiac Disorders RESPIRATORY: Positive Chronic Obstructive Pulmonary Disease (COPD); Negative Asthma GASTROINTESTINAL: Positive Gastroesophageal Reflux Disease and Obesity GENITOURINARY: Negative Renal Disease MUSCULOSKELETAL: Positive Arthritis ENDOCRINE: Positive Diabetes Mellitus Type 2; Negative Diabetes Mellitus Type 1 HEMATOLOGIC: Positive Anemia; Negative Sickle Cell Disease PSYCHO/SOCIAL: Positive Depression and Anxiety Social History SMOKING STATUS: Never smoker SUBSTANCE USE: does not use ED Exam Narrative Physical exam: GENERAL APPEARANCE: alert and oriented x 4, well-developed, well-nourished, no acute distress HEENT: Normocephalic, atraumatic; pupils equal, round, reactive to light; EOMI; mucous membranes pink, moist; oropharynx clear NECK: Supple LUNGS: CTABL; no wheezes, no rales, no rhonchi HEART: Mildly tachycardic, regular rhythm; normal S1, S2; no murmurs ABDOMEN: non distended; obese, soft, lower abdominal/pelvic tenderness BACK: no CVA tenderness EXTREMITIES: atraumatic; no edema NEUROLOGIC: awake; alert and oriented x4; cranial nerves II-XII grossly intact; no focal sensory or motor deficits PSYCHIATRIC: appropriate mood and affect SKIN: warm, dry, appears pale; no rashes Course Quality Measures none Orders Category Date Time Status EKG (ED ONLY) *Do not use* NOW Care 10/10/25 22:29 Completed Transfuse,blood/blood products NOW Care 10/10/25 23:41 Active EKG (ED Only) Stat Exams 10/10/25 22:27 Draft US pelvic complete Stat Exams 10/11/25 01:58 Taken Antibody Identification Stat Lab 10/10/25 22:32 Completed CBC [CBC] Stat Lab 10/10/25 22:32 Completed CMP [Comprehensive Metabolic Panel] Stat Lab 10/10/25 22:32 Completed HCG,Qualitative Serum Stat Lab 10/11/25 00:00 Completed Path Review Blood Smear Stat Lab 10/10/25 22:32 Completed Red Blood Cells Stat Lab 10/10/25 22:32 Completed Type and Screen Stat Lab 10/10/25 22:32 Completed Urinalysis, C/S if Indicated Stat Lab 10/10/25 23:25 Completed Urine Culture Stat Lab 10/10/25 23:25 Received DiphenhydrAMINE [Benadryl] Med 10/10/25 23:42 Discontinued 25 mg PO X1 ONE Sodium Chloride 0.9% 500 ml [Ns] 500 ml Med 10/10/25 22:27 Discontinued IV 500 mls/hr Tranexamic Acid Inj Med 10/10/25 22:28 Discontinued 1 mg IV X1 ONE Tranexamic Acid Inj Med 10/10/25 22:28 Discontinued 1,000 mg IV X1 ONE Vital Signs Vital signs: Vital Signs Temperature 99.0 F 10/10/25 22:05 Pulse Rate 102 H 10/10/25 22:05 Respiratory Rate 18 10/10/25 22:05 Blood Pressure 102/60 10/10/25 22:05 Pulse Oximetry (%) 97 10/10/25 22:05 Oxygen Delivery Method Nasal Cannula 10/10/25 22:05 Oxygen Flow Rate 2 10/10/25 22:05 Vaginal Bleeding MDM Narrative MDM Narrative: Scribe Attestation: 10/10/25 - Krys Escobar am scribing for and in the presence of Dr. Christensen. 55yo female who was seen by the undersigned for abnormal uterine bleeding thought to be due to degenerative fibroid presents with recurrent escalating vaginal bleeding with noted clots with associated lightheadedness, dizziness, and near syncope. SNF staff members noted elevated heart rate and report 5 pads within the last hour used. Please see PE findings. Lab markers demonstrated Hgb 6.4. Patient was administered crystalloid and typed and crossed for 2U PRBCs and transfused under my direct supervision. No complications. Blood pressure down trended to low 90s and remained mild tachycardic. Speculum exam performed with female extrusion technician at bedside and demonstrated continued passage of large clots. This was communicated to SPORTS PHYSIOTHERAPIST physician, Dr. Ellington. Given this patient's recurrent dysfunctional vaginal bleeding, which is likely due to degenerative fibroid (noted on prior US), patient will be admitted for further observation, hemodynamic monitoring, and considering of ablation vs hysterectomy. Hospitalist consulted and agrees to admit the patient. Dx: recurrent abnormal uterine bleeding, history of fibroids, acute anemia secondary to blood loss, class II hemorrhagic shock Patient data External records reviewed:: [facility] previous records (Per chart review, patient was seen here on 09/27/25 for anemia.), EMS form and Group [facility] records Clinical information provided by:: patient Social determinants that could affect healthcare access:: housing (SNF resident) Patient has the following chronic illnesses:: DM, CHF, anoxic brain injury, uterine fibroid, aFib on Eliquis How is presenting disease/condition affected by chronic disease/condition?: exacerbated by Evaluation data The following diagnostics were reviewed and interpreted by me:: lab results, radiology exam(s) and EKG tracing(s) Lab and/or radiology exams considered but not ordered:: none Interpretation Summary: EKG done at 2312, sinus rhythm, rate of 97, no acute pathological ST segment changes, no ectopy, normal intervals, left axis deviation, according to my interpretation. Telerad Preliminary Report Draft Patient: JOSE STINSON. Record#: [id number] Birthdate: 1970 Age/Sex: 55 / F Location: [facility] Attending Dr: Ordering Physician: Date of Service: Procedure(s): Accession Number(s): cc: ~ Pelvic ultrasound (transabdominal). October 11, 2025 at 0329 hours Clinical history: DUB. Technique: Real-time, grayscale, transabdominal pelvic ultrasound was performed using Duplex scanning including arterial inflow, venous outflow, color and spectral Doppler. Comparison: No prior study is available for comparison. Findings: Uterus: The uterus is enlarged and measures 13.4 x 6.4 x 8.6 cm. The myometrium appears heterogeneous, likely related to technical limitations due to elevated BMI. Endometrium: The endometrial stripe measures 0.5 cm, within normal limits for a postmenopausal/late reproductive-age patient depending on cycle phase. Right ovary: The right ovary is not visualised due to overlying bowel gas. Left ovary: The left ovary is not visualised due to overlying bowel gas. Adnexa / Cul-de-sac: No adnexal mass is seen. No free pelvic fluid. Impression: Enlarged uterus with a thin (0.5 cm) endometrial stripe. Non-visualisation of both ovaries due to bowel gas and body habitus.No adnexal mass identified. If clinical symptoms persist or worsen, a transvaginal pelvic ultrasound may be considered for more definitive ovarian assessment. Report Electronically Signed By: Ayse Schmidt 10/11/2025 4:29:16 AM [EST Medications / Prescriptions Medications or Prescriptions considered but not ordered:: none Medication administrations:: Medication Administration History Acetaminophen (Acetaminophen 325 Mg Tablet) 650 mg PO Q6H PRN PRN Reason: Fever >100.4 Stop: 11/10/25 05:43 Discontinued Medications Diphenhydramine HCl (Diphenhydramine 25 Mg Capsule) 25 mg PO X1 ONE Stop: 10/10/25 23:43 Last Admin: 10/11/25 00:31 Dose: 25 mg Documented By: THADDEUS Sodium Chloride (Ns) 500 mls @ 500 mls/hr IV .Q1H ONE Stop: 10/10/25 23:26 Last Infusion: 10/11/25 00:31 Dose: Infused Documented By: Admin: 10/10/25 23:12 Dose: 500 mls/hr Documented By: THADDEUS Tranexamic Acid (Tranexamic Acid Inj 1,000 Mg/10 Ml Vial) 1 mg IV X1 ONE Stop: 10/10/25 22:29 Last Admin: 10/10/25 23:10 Dose: Not Given Documented By: THADDEUS Non-Admin Reason: Cancelled by Provider Tranexamic Acid (Tranexamic Acid Inj 1,000 Mg/10 Ml Vial) 1,000 mg IV X1 ONE Stop: 10/10/25 22:29 Last Admin: 10/10/25 23:35 Dose: 1,000 mg Documented By: THADDEUS see above Consultations Consultation(s) initiated? (list below): Yes Diagnosis Vaginal Bleeding Differential Diagnosis: dysfunctional uterine bleeding, vaginal bleeding and other (uterine fibroid, acute on chronic anemia) Most likely diagnosis given after review of the tests above:: see clinical impression below Admission Indicated Admission indicated?: indicated Admission Request Was there a request for admission?: Yes Admission Attestation Admission request attestation: Discussed case with [] from Hospitalist service regarding admission. Discussed patients ED course, exam findings, labs, and radiology results. The Hospitalist [agrees,declines] to accept the patient for admission. Disposition Plan Disposition Plan: Admit Critical Care Time Critical Care Time Critical Care Time: Yes Total Critical Care Time (min.): 45 Attestation: The high probability of sudden, clinically significant deterioration in the patient?s condition required the highest level of my preparedness to intervene urgently. The services I provided to this patient were to treat and/or prevent clinically significant deterioration. Services included the following: chart data review, reviewing nursing notes and/or old charts, documentation time, market intelligence consultant collaboration regarding findings and treatment options, medication orders and management, direct patient care, vital sign assessments and ordering, interpreting and reviewing diagnostic studies and lab tests. Aggregate critical care time includes only time during which I was engaged in work directly related to the patient?s care, as described above, whether at bedside or elsewhere in the Emergency Department. It did not include time spent performing other reported procedures or the services of residents, students, nurses or physician assistants. Discharge Plan Plan Patient Disposition: Admit Acute Care w/in Hospital Problem List Clinical Impression: Abnormal vaginal bleeding, History of uterine fibroid, Anemia, Hemorrhagic shock
--- NOTE | 2025-10-10 22:27 | EKG_ITS ---
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
[2025-10-10 22:51] LABS: Basophils # (Auto) 0.1 Thou/mm3 (0.0-0.2); Basophils % (Auto) 0 % (0-2.5); Eosinophils # (Auto) 0.4 Thou/mm3 (0.0-0.5); Eosinophils % (Auto) 4 % (0-10); Hematocrit 21.1 % (36.0-46.0); Immature Granulocytes Auto 0.04 Thou/mm3 (0.00-0.00); Lymphocytes # (Auto) 2.3 Thou/mm3 (1.0-4.8); Lymphocytes % (Auto) 18 % (10-50); Mean Corpuscular HGB Conc 29.9 g/dl (31.0-37.0); Mean Corpuscular Hemoglobin 24.1 pg (25.0-35.0); Mean Corpuscular Volume 81 fL (80-100); Monocytes # (Auto) 0.7 Thou/mm3 (0.0-0.8); Monocytes % (Auto) 6 % (0-12); Neutrophils # (Auto) 8.9 Thou/mm3 (1.8-7.7); Neutrophils % (Auto) 72 % (37-80); Nucleated Red Blood Cell # 0.00 Thou/mm3 (0.00-0.00); Nucleated Red Blood Cell % 0 /100 WBC (0); Platelet Count 256 Thou/mm3 (140-440); RDW Standard Deviation 44.9 fL (36.4-46.3); Red Blood Count 2.61 Miln/mm3 (4.00-5.20); White Blood Count 12.4 Thou/mm3 (3.6-11.0)
[2025-10-10 22:57] LABS: Hemoglobin 6.3 g/dL (12.0-16.0)
[2025-10-10 23:07] LABS: Alanine Aminotransferase 12 U/L (10-49); Albumin, Serum 3.5 gm/dL (3.5-5.0); Albumin/Globulin Ratio 1.1 (1.2-2.2); Alkaline Phosphatase 86 U/L (46-116); Anion Gap 8 (7-16); Aspartate Amino Transferase 20 U/L (0-34); BUN/Creatinine Ratio 14 Ratio (12-20); Bilirubin,Total 0.4 mg/dL (0.3-1.2); Blood Urea Nitrogen 15 mg/dL (9-23); Calcium 8.5 mg/dL (8.3-10.6); Calcium (Corrected) 8.9 mg/dL (8.5-10.1); Carbon Dioxide 33.5 mMol/L (20.0-31.0); Chloride 99 mMol/L (98-107); Creatinine (Component) 1.1 mg/dL (0.6-1.3); Estimated Creatinine Clearance 80.0 mL/min (>60); Globulin 3.1 gm/dL (2.3-3.5); Glucose 173 mg/dL (74-106); Osmolality,Calculated 284 (275-295); Potassium 3.6 mMol/L (3.4-5.1); Sodium 140 mMol/L (136-145); Total Protein 6.6 gm/dL (5.7-8.2); eGFR 59 See Note
[2025-10-10] MEDS: SODIUM CHLORIDE 0.9% 500 ML 500 ML IV (23:12)
[2025-10-10 23:29] LABS: Collection Type, Urine Clean Catch
[2025-10-10] MEDS: TRANEXAMIC ACID INJ 1,000 MG/10 ML VIAL 1000 MG IV (23:35)
[2025-10-10 23:39] VITALS: BP 126/66; PULSE 98; RESP 19; TEMP 37.1; O2SAT 98
[2025-10-10 23:46] LABS: Bacteria,Urine 1+; Bilirubin,Urine Negative (Negative); Blood,Urine Negative (Negative); Clarity,Urine Clear (Clear/Hazy); Color,Urine Yellow (Lt Yel-Yel); Culture Indicated,Urine Yes; Glucose, Urine Negative (Negative); Ketones,Urine Negative (Negative); Leukocyte Esterase,Urine Positive (Negative); Nitrite,Urine Negative (Negative); PH,Urine 5.0 (5.0-7.0); Protein,Urine Negative (Neg - Trace); RBC,Urine < 1 /hpf (0-3); Specific Gravity,Urine 1.023 (1.001-1.035); Squamous Epithelial Cell,Urine 4 /hpf (0-5); Urobilinogen,Urine 2.0 mg/dL (0.0-1.0); WBC,Urine 14 /hpf (0-5)
[2025-10-11] VITALS (20 sets, daily range): BP systolic 87–127; BP diastolic 57–79; PULSE 80–104; RESP 15–20; TEMP 36.1–37.2; O2SAT 95–100
--- NOTE | 2025-10-11 01:58 | XR_ITS ---
Examination: Pelvic ultrasound, transabdominal, complete Technique: Transabdominal ultrasound of the pelvis performed using grayscale imaging Date and time of exam: October 11, 2025, 0329 hours INDICATIONS: Onset vaginal bleeding beginning 3 days ago FINDINGS: Limited study secondary to patient size Uterus 13.4 cm endometrial stripe 0.5 cm no uterine mass or intrauterine gestation No diagnostic visualization ovaries IMPRESSION: Limited study as above Enlarged uterus although no discrete uterine mass
[2025-10-11 02:07] LABS: HCG,Qualitative Serum Negative
[2025-10-11 03:54] LABS: Path Review Blood Smear Sent to Pathologist
--- NOTE | 2025-10-11 04:30 | PRELIM_ITS ---
Pelvic ultrasound (transabdominal). October 11, 2025 at 0329 hours Clinical history: DUB. Technique: Real-time, grayscale, transabdominal pelvic ultrasound was performed using Duplex scanning including arterial inflow, venous outflow, color and spectral Doppler. Comparison: No prior study is available for comparison. Findings: Uterus: The uterus is enlarged and measures 13.4 x 6.4 x 8.6 cm. The myometrium appears heterogeneous, likely related to technical limitations due to elevated BMI. Endometrium: The endometrial stripe measures 0.5 cm, within normal limits for a postmenopausal/late reproductive-age patient depending on cycle phase. Right ovary: The right ovary is not visualised due to overlying bowel gas. Left ovary: The left ovary is not visualised due to overlying bowel gas. Adnexa / Cul-de-sac: No adnexal mass is seen. No free pelvic fluid. Impression: Enlarged uterus with a thin (0.5 cm) endometrial stripe. Non-visualisation of both ovaries due to bowel gas and body habitus.No adnexal mass identified. If clinical symptoms persist or worsen, a transvaginal pelvic ultrasound may be considered for more definitive ovarian assessment. Report Electronically Signed By: Ayse Schmidt 10/11/2025 4:29:16 AM [EST]
--- NOTE | 2025-10-11 05:57 | ESHP_ITS ---
<Statement entered by Brenton Santa MD - 10/12/25 06:43> A 54-year-old female with significant past medical history of diabetes, CHF, uterine fibroid, atrial fibrillation on Eliquis presented to the hospital with chief complaints of vaginal bleeding and dizziness. Patient noted to have recurrent episodes of vaginal bleeding in the last couple of months for which she came to the hospital and got blood transfusion, supposed to follow-up with gynecology but never did. Reported that she stopped having menstrual cycles at the age of 43 and attained menopause at that time but since the beginning of the year she noted to have menstrual periods again which are regular, with normal flow. Denies weight gain, weight loss. Vitals at the time of admission are within normal limits. Labs at the time of admission are significant for hemoglobin 6.3, WBC 12.4, bicarb 33.5. Transvaginal ultrasound performed on 10/07/2025 did not show any significant due to patient's body habitus. Urinalysis is significant for 14 WBC but patient denies any symptoms of UTI. Patient was given a dose of tranexamic acid half liter of saline and was started on blood transfusion in the ED. Consulted gynecology by the ED doctor and recommended to admit the patient for further management. Cancer markers are sent. There is a suspicion of uterine cancer at this point in the setting of postmenopausal bleeding. Resumed all her home medications and LITHOGRAPHIC PLATE MAKER APPRENTICE will follow the patient's. Recommended to monitor CBC I have personally seen and examined the patient, agree with residents assessment and plan Patient plan of care was discussed with the attending physician, Dr. Terrence Santa, PGY2 Documentation for date of: 10/11/25 HPI History of Present Illness History of present illness: HPI: 55-year-old female past medical history of diabetes, CHF, anoxic brain injury, uterine fibroid, and A-fib presented to the ED in the late evening of 10/10/2025 with chief complaint of vaginal bleeding. Patient is a poor historian. She endorsed 3 days of vaginal bleeding with clots. She mentioned that her normal menstrual cycles stopped at age 43 and described them as restarting this year with normal cycles using 5 pads daily for 5 days at a time. She does not recall her last menstrual period. The patient also endorses associated dizziness but no other associated bleeding. She mentioned that she is taking a blood thinner but does not know the name or for what condition. She was found to have a hemoglobin of 6.3. Patient was typed and crossed and 2 units of blood were ordered. Upon admission she was receiving her second unit. Patient was admitted for acute blood loss anemia secondary to bleeding from uterine fibroids. ED Course: * Significant vitals on arrival: Pulse 102, BP 102/60, saturating at 97% on 2 L nasal cannula * Significant labs: Hemoglobin 6.3, hematocrit 21.1, WBC 12.4, RBC 2.61. Bicarb 33.5. Glucose 173. * Imaging: Pelvic ultrasound official read pending. Transvaginal ultrasound performed on 10/07/2025 was indeterminate due to the patient's body habitus. EKG showed sinus rhythm with frequent PVCs, QTc 503, rate 97. * Urine: 14 WBCs, 1+ bacteria, leukocyte esterase positive * ED intervention: Patient received tranexamic acid, a half liter of normal saline, diphenhydramine, and is currently being transfused her second unit of PRBCs on admission. History: (Obtained from chart review and the patient) * Past medical history: As above in HPI. * Surgical history: , hernia repair. * Social history: Lives at [facility], remote history of alcohol use, no tobacco or illicit drugs. Allergies: * Penicillins Home Medications: (Pending med rec) * Docusate 100 mg p.o. twice daily. * Ferrous sulfate 325 mg p.o. twice daily. * Tranexamic acid 650 mg p.o. every 8 hours. * Eliquis. CODE STATUS: Full code Review of Systems Review of Systems Narrative Review of Systems: Review of Systems: * General: Admits to dizziness. Denies fevers, chills. * HEENT: Denies headache, congestion, or sore throat. * Cardiac: Denies chest pain or palpitations. * Pulmonary: Denies shortness of breath or cough. * GI: Denies nausea, vomiting, diarrhea, constipation, melena, or hematochezia. * : Denies dysuria, hematuria, frequency, or urgency. * MSK: Denies pain in the extremities, joints, or myalgias. * Neuro: Denies weakness, numbness, vision changes, or speech difficulty. * LITHOGRAPHIC PLATE MAKER APPRENTICE: 3-day history of vaginal bleeding with clots. Exam Vital Signs Temp Pulse Resp BP Pulse Ox O2 Del Method O2 Flow Rate 98.6 F 104 H 19 114/77 100 Nasal Cannula 2 10/11/25 04:59 10/11/25 04:59 10/11/25 04:59 10/11/25 04:59 10/11/25 04:59 10/11/25 04:32 10/11/25 04:59 Narrative Exam General: Obese woman. Awake and in no acute distress. Conversational and non- toxic appearing. Neurologic: No gross neurological deficit, and patient able to move all 4 extremities. HEENT: Normocephalic, atraumatic, mucous membranes moist. Pupils reactive to light. Heart: Regular rate and rhythm, normal S1 and S2, no murmurs. Lungs: Clear to auscultation bilaterally with no wheezing or crackles. Abdomen: Soft, nondistended, nontender. No guarding or rebound tenderness. Extremities: No edema. 2+ radial and dorsalis pedis pulses bilaterally. Skin: Warm. Dry. No rash or ecchymoses. Respiratory Practitioner: Difficult exam due to body habitus: Dried blood around the introitus. Slow active vaginal bleeding into PureWick, which looks like it was placed by ED for the purpose of collecting blood not urine. Less than 100 mL in the collection jar (unknown how long this has been in place). Results: Labs 10/12/25 19:43 10/12/25 04:15 Labs: Short CBC 10/10/25 Range/Units 22:32 WBC 12.4 H (3.6-11.0) Thou/mm3 Hgb 6.3 L* (12.0-16.0) g/dL Hct 21.1 L* (36.0-46.0) % Plt Count 256 D (140-440) Thou/mm3 BMP 10/10/25 22:32 Sodium 140 Potassium 3.6 Chloride 99 Carbon Dioxide 33.5 H BUN 15 Creatinine 1.1 Glucose 173 H Calcium 8.5 Liver Function 10/10/25 Range/Units 22:32 Total Bilirubin 0.4 (0.3-1.2) mg/dL AST 20 (0-34) U/L ALT 12 (10-49) U/L Alkaline Phosphatase 86 (46-116) U/L Albumin 3.5 (3.5-5.0) gm/dL Urine 10/10/25 Range/Units 23:25 Urine Color Yellow (Lt Yel-Yel) Urine Clarity Clear (Clear/Hazy) Urine pH 5.0 (5.0-7.0) Ur Specific [place] 1.023 (1.001-1.035) Urine Protein Negative (Neg - Trace) Urine Glucose (UA) Negative (Negative) Quality Measures Quality Measures VTE prophylaxis Medications Home Medications and Allergies Home Medications ?Medication ?Instructions ?Recorded ?Confirmed ?Type acetaminophen 325 mg tablet 650 mg PO Q6H PRN pain 07/2810/11/25 History (Tylenol) albuterol sulfate 2.5 mg/3 mL 2.5 mg inhalation BID MO N 10/11/25 10/11/25 History (0.083 %) solution for nebulization shortness of breat h or wheezing apixaban 2.5 mg tablet 2.5 mg PO BID 10/11/2510/11 History ascorbic acid (vitamin C) 500 mg 500 mg PO DAILY 10/1110/11/25 History capsule atorvastatin 40 mg tablet (Lipitor) 40 mg PO QPM 10/1110/11/25 History bumetanide 2 mg tablet 2 mg PO QDAY 10/11/25 History ergocalciferol (vitamin D2) 1,250 1,250 mcg PO QWEEK 1 12/12/24 10/11/25 History mcg (50,000 unit) capsule (Vitamin D2) gabapentin 300 mg capsule 300 mg PO BID 10/11/2510/11 History insulin aspart U-100 100 unit/mL 1 sliding scale dose subcut 10/11/25 10/11/25 History (3 mL) subcutaneous pen (Novolog USEASDIRECTD FlexPen U-100 Insulin aspart) insulin glargine 100 unit/mL (3 24 unit subcut .COMPLE X 10/11/25 10/11/25 History mL) subcutaneous pen (Lantus Solostar U-100 Insulin) magnesium 200 mg tablet 400 mg PO BID 10/11/2510/11 History magnesium hydroxide 400 mg/5 mL 30 ml PO DAILY constip ation 10/11/25 10/11/25 History oral suspension melatonin 3 mg capsule 6 mg PO HS PRN sleep 5 10/11/25 History metoprolol succinate 25 mg 25 mg PO DAILY 10/11/2507/28 History tablet,extended release 24 hr (Toprol XL) multivitamin (Daily Multi-Vitamin 1 tab PO QDAY 10/11/25 History tablet) pantoprazole 40 mg granules 40 mg PO QDAY 10/11/2507/28 History delayed-release for susp in packet (Protonix) Allergies Allergy/AdvReac Type Severity Reaction Status Date / Time Penicillins Allergy Verified 10/10/25 22:11 Visit Medications Acetaminophen (Acetaminophen 325 Mg Tablet) 650 mg PO Q6H PRN PRN Reason: Fever >100.4 Stop: 11/10/25 05:43 Discontinued Medications Diphenhydramine HCl (Diphenhydramine 25 Mg Capsule) 25 mg PO X1 ONE Stop: 10/10/25 23:43 Last Admin: 10/11/25 00:31 Dose: 25 mg Sodium Chloride (Ns) 500 mls @ 500 mls/hr IV .Q1H ONE Stop: 10/10/25 23:26 Last Infusion: 10/11/25 00:31 Dose: Infused Tranexamic Acid (Tranexamic Acid Inj 1,000 Mg/10 Ml Vial) 1 mg IV X1 ONE Stop: 10/10/25 22:29 Last Admin: 10/10/25 23:10 Dose: Not Given Tranexamic Acid (Tranexamic Acid Inj 1,000 Mg/10 Ml Vial) 1,000 mg IV X1 ONE Stop: 10/10/25 22:29 Last Admin: 10/10/25 23:35 Dose: 1,000 mg Assessment & Plan Plan Summary: 55-year-old female past medical history of diabetes, CHF, anoxic brain injury, uterine fibroid, and A-fib presented to the ED in the late evening of 10/10/2025 with chief complaint of vaginal bleeding. She was found to have a hemoglobin of 6.3. 2 units of blood were ordered. Upon admission she was receiving her second unit. Patient was admitted for acute blood loss anemia secondary to suspected bleeding from uterine fibroids. #Acute normocytic anemia secondary to blood loss #Acute blood loss anemia #Symptomatic anemia #Bleeding uterine fibroid * Hemoglobin 6.3 hematocrit 21.1 on arrival * Patient presented with 3-day history of vaginal bleeding with clots and associated dizziness * She mentioned that her normal menstrual cycles stopped at age 43 and described them as restarting this year with normal cycles using 5 pads daily for 5 days at a time. She does not recall her last menstrual period. 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 Ellington #A-fib * Per chart review patient has a history of A-fib and is on Eliquis * EKG showed sinus rhythm with frequent PVCs, QTc 503, rate 97. Plan: * Holding for now in the setting of vaginal bleed #History of anoxic brain injury * Per chart review * Patient has lived at [facility] for 2 years * Precipitation event for anoxic brain injury unknown Plan: * No direct intervention at this time #Asymptomatic Pyuria * Urinalysis showed 14 WBCs, 1+ bacteria, leukocyte esterase positive Plan: * No direct intervention at this time #NIDDM II * Per chart review * Glucose 173 on arrival Plan: * Consider ordering A1c * Insulin sliding scale once the patient cleared for diet #CHF * Per chart review * Patient does not appear to be in acute CHF exacerbation on exam, negative for crackles or pitting edema * No echo on file * Unclear if patient taking diuretics Plan: * Pending med rec * No direct intervention at this time Hospital Maintenance: DVT ppx: SCDs, avoiding chemical prophylaxis Diet: Pending swallow screen IV lines: Peripheral IVs Hurd?: PureWick Code status: Full code Dispo: Telemetry monitoring floor, transfusing second unit of blood on admission, follow-up posttransfusion H&H, gynecology consulted, pelvic ultrasound pending read. Patient was seen and discussed with my attending physician Dr. Terrence DERAS and my senior resident Dr. Arina DERAS PGY-2. Will Soto DO PGY-1. Attending Provider Attestation/Addendum After examination of the patient and review of the clinical data I feel that this patient needs admission to the hospital for further treatment/evaluation. Plan of care discussed with patient and is in agreement. I Ruma Ocampo MD, attest that I was physically present for ball portions of evaluation, and examined patient, labs and imagings and plan of care were discussed with IM residents team, and I agree with the findings and plans documented above.
--- NOTE | 2025-10-11 05:57 | PD.RESHP ---
Documentation for date of: 10/11/25 [facility] History of Present Illness History of present illness: HPI: 55-year-old female past medical history of diabetes, CHF, anoxic brain injury, uterine fibroid, and A-fib presented to the ED in the late evening of 10/10/2025 with chief complaint of vaginal bleeding. Patient is a poor historian. She endorsed 3 days of vaginal bleeding with clots. She mentioned that her normal menstrual cycles stopped at age 43 and described them as restarting this year with normal cycles using 5 pads daily for 5 days at a time. She does not recall her last menstrual period. The patient also endorses associated dizziness but no other associated bleeding. She mentioned that she is taking a blood thinner but does not know the name or for what condition. She was found to have a hemoglobin of 6.3. Patient was typed and crossed and 2 units of blood were ordered. Upon admission she was receiving her second unit. Patient was admitted for acute blood loss anemia secondary to bleeding from uterine fibroids. ED Course: Significant vitals on arrival: Pulse 102, BP 102/60, saturating at 97% on 2 L nasal cannula Significant labs: Hemoglobin 6.3, hematocrit 21.1, WBC 12.4, RBC 2.61. Bicarb 33.5. Glucose 173. Imaging: Pelvic ultrasound official read pending. Transvaginal ultrasound performed on 10/07/2025 was indeterminate due to the patient's body habitus. EKG showed sinus rhythm with frequent PVCs, QTc 503, rate 97. Urine: 14 WBCs, 1+ bacteria, leukocyte esterase positive ED intervention: Patient received tranexamic acid, a half liter of normal saline, diphenhydramine, and is currently being transfused her second unit of PRBCs on admission. History: (Obtained from chart review and the patient) Past medical history: As above in HPI. Surgical history: , hernia repair. Social history: Lives at [facility], remote history of alcohol use, no tobacco or illicit drugs. Allergies: Penicillins Home Medications: (Pending med rec) Docusate 100 mg p.o. twice daily. Ferrous sulfate 325 mg p.o. twice daily. Tranexamic acid 650 mg p.o. every 8 hours. Eliquis. CODE STATUS: Full code Review of Systems Review of Systems Narrative Review of Systems: Review of Systems: General: Admits to dizziness. Denies fevers, chills. HEENT: Denies headache, congestion, or sore throat. Cardiac: Denies chest pain or palpitations. Pulmonary: Denies shortness of breath or cough. GI: Denies nausea, vomiting, diarrhea, constipation, melena, or hematochezia. : Denies dysuria, hematuria, frequency, or urgency. MSK: Denies pain in the extremities, joints, or myalgias. Neuro: Denies weakness, numbness, vision changes, or speech difficulty. PROP SAWYER: 3-day history of vaginal bleeding with clots. Exam Vital Signs Temp Pulse Resp BP Pulse Ox O2 Del Method O2 Flow Rate 98.6 F 104 H 19 114/77 100 Nasal Cannula 2 10/11/25 04:59 10/11/25 04:59 10/11/25 04:59 10/11/25 04:59 10/11/25 04:59 10/11/25 04:32 10/11/25 04:59 Narrative Exam General: Obese woman. Awake and in no acute distress. Conversational and non-toxic appearing. Neurologic: No gross neurological deficit, and patient able to move all 4 extremities. HEENT: Normocephalic, atraumatic, mucous membranes moist. Pupils reactive to light. Heart: Regular rate and rhythm, normal S1 and S2, no murmurs. Lungs: Clear to auscultation bilaterally with no wheezing or crackles. Abdomen: Soft, nondistended, nontender. No guarding or rebound tenderness. Extremities: No edema. 2+ radial and dorsalis pedis pulses bilaterally. Skin: Warm. Dry. No rash or ecchymoses. Fine Chemicals Operator: Difficult exam due to body habitus: Dried blood around the introitus. Slow active vaginal bleeding into PureWick, which looks like it was placed by ED for the purpose of collecting blood not urine. Less than 100 mL in the collection jar (unknown how long this has been in place). Results: Labs 10/12/25 19:43 10/12/25 04:15 Labs: Short CBC 10/10/25 Range/Units 22:32 WBC 12.4 H (3.6-11.0) Thou/mm3 Hgb 6.3 L* (12.0-16.0) g/dL Hct 21.1 L* (36.0-46.0) % Plt Count 256 D (140-440) Thou/mm3 BMP 10/10/25 22:32 Sodium 140 Potassium 3.6 Chloride 99 Carbon Dioxide 33.5 H BUN 15 Creatinine 1.1 Glucose 173 H Calcium 8.5 Liver Function 10/10/25 Range/Units 22:32 Total Bilirubin 0.4 (0.3-1.2) mg/dL AST 20 (0-34) U/L ALT 12 (10-49) U/L Alkaline Phosphatase 86 (46-116) U/L Albumin 3.5 (3.5-5.0) gm/dL Urine 10/10/25 Range/Units 23:25 Urine Color Yellow (Lt Yel-Yel) Urine Clarity Clear (Clear/Hazy) Urine pH 5.0 (5.0-7.0) Ur Specific [place] 1.023 (1.001-1.035) Urine Protein Negative (Neg - Trace) Urine Glucose (UA) Negative (Negative) Quality Measures Quality Measures VTE prophylaxis Medications Home Medications and Allergies Home Medications ?Medication ?Instructions ?Recorded ?Confirmed ?Type acetaminophen 325 mg tablet 650 mg PO Q6H PRN pain 10/11/25 10/11/25 History (Tylenol) albuterol sulfate 2.5 mg/3 mL 2.5 mg inhalation BID PRN 10/11/25 10/11/25 History (0.083 %) solution for nebulization shortness of breath or wheezing apixaban 2.5 mg tablet 2.5 mg PO BID 10/11/25 10/11/25 History ascorbic acid (vitamin C) 500 mg 500 mg PO DAILY 10/11/25 10/11/25 History capsule atorvastatin 40 mg tablet (Lipitor) 40 mg PO QPM 10/11/25 10/11/25 History bumetanide 2 mg tablet 2 mg PO QDAY 10/11/25 10/11/25 History ergocalciferol (vitamin D2) 1,250 1,250 mcg PO QWEEK 10/11/25 10/11/25 History mcg (50,000 unit) capsule (Vitamin D2) gabapentin 300 mg capsule 300 mg PO BID 10/11/25 10/11/25 History insulin aspart U-100 100 unit/mL 1 sliding scale dose subcut 10/11/25 10/11/25 History (3 mL) subcutaneous pen (Novolog USEASDIRECTD FlexPen U-100 Insulin aspart) insulin glargine 100 unit/mL (3 24 unit subcut .COMPLEX 10/11/25 10/11/25 History mL) subcutaneous pen (Lantus Solostar U-100 Insulin) magnesium 200 mg tablet 400 mg PO BID 10/11/25 10/11/25 History magnesium hydroxide 400 mg/5 mL 30 ml PO DAILY constipation 10/11/25 10/11/25 History oral suspension melatonin 3 mg capsule 6 mg PO HS PRN sleep 10/11/25 10/11/25 History metoprolol succinate 25 mg 25 mg PO DAILY 10/11/25 10/11/25 History tablet,extended release 24 hr (Toprol XL) multivitamin (Daily Multi-Vitamin 1 tab PO QDAY 10/11/25 10/11/25 History tablet) pantoprazole 40 mg granules 40 mg PO QDAY 10/11/25 10/11/25 History delayed-release for susp in packet (Protonix) Allergies Allergy/AdvReac Type Severity Reaction Status Date / Time Penicillins Allergy Verified 10/10/25 22:11 Visit Medications Acetaminophen (Acetaminophen 325 Mg Tablet) 650 mg PO Q6H PRN PRN Reason: Fever >100.4 Stop: 11/10/25 05:43 Discontinued Medications Diphenhydramine HCl (Diphenhydramine 25 Mg Capsule) 25 mg PO X1 ONE Stop: 10/10/25 23:43 Last Admin: 10/11/25 00:31 Dose: 25 mg Sodium Chloride (Ns) 500 mls @ 500 mls/hr IV .Q1H ONE Stop: 10/10/25 23:26 Last Infusion: 10/11/25 00:31 Dose: Infused Tranexamic Acid (Tranexamic Acid Inj 1,000 Mg/10 Ml Vial) 1 mg IV X1 ONE Stop: 10/10/25 22:29 Last Admin: 10/10/25 23:10 Dose: Not Given Tranexamic Acid (Tranexamic Acid Inj 1,000 Mg/10 Ml Vial) 1,000 mg IV X1 ONE Stop: 10/10/25 22:29 Last Admin: 10/10/25 23:35 Dose: 1,000 mg Assessment & Plan Plan Summary: 55-year-old female past medical history of diabetes, CHF, anoxic brain injury, uterine fibroid, and A-fib presented to the ED in the late evening of 10/10/2025 with chief complaint of vaginal bleeding. She was found to have a hemoglobin of 6.3. 2 units of blood were ordered. Upon admission she was receiving her second unit. Patient was admitted for acute blood loss anemia secondary to suspected bleeding from uterine fibroids. #Acute normocytic anemia secondary to blood loss #Acute blood loss anemia #Symptomatic anemia #Bleeding uterine fibroid Hemoglobin 6.3 hematocrit 21.1 on arrival Patient presented with 3-day history of vaginal bleeding with clots and associated dizziness She mentioned that her normal menstrual cycles stopped at age 43 and described them as restarting this year with normal cycles using 5 pads daily for 5 days at a time. She does not recall her last menstrual period. Patient had no active bleeding from the vagina on exam Patient has had multiple previous visits for vaginal bleeding with associated clots She was referred to outpatient ALIGNER TYPEWRITER but did not follow-up Patient is on her second unit of PRBCs upon admission Plan: Follow-up posttransfusion H&H after second unit of PRBCs is administered Pending pelvic ultrasound radiology read Avoiding chemical anticoagulation Gynecology consulted: Dr. Ellington #A-fib Per chart review patient has a history of A-fib and is on Eliquis EKG showed sinus rhythm with frequent PVCs, QTc 503, rate 97. Plan: Holding for now in the setting of vaginal bleed #History of anoxic brain injury Per chart review Patient has lived at [facility] for 2 years Precipitation event for anoxic brain injury unknown Plan: No direct intervention at this time #Asymptomatic Pyuria Urinalysis showed 14 WBCs, 1+ bacteria, leukocyte esterase positive Plan: No direct intervention at this time #NIDDM II Per chart review Glucose 173 on arrival Plan: Consider ordering A1c Insulin sliding scale once the patient cleared for diet #CHF Per chart review Patient does not appear to be in acute CHF exacerbation on exam, negative for crackles or pitting edema No echo on file Unclear if patient taking diuretics Plan: Pending med rec No direct intervention at this time Hospital Maintenance: DVT ppx: SCDs, avoiding chemical prophylaxis Diet: Pending swallow screen IV lines: Peripheral IVs Hurd?: PureWick Code status: Full code Dispo: Telemetry monitoring floor, transfusing second unit of blood on admission, follow-up posttransfusion H&H, gynecology consulted, pelvic ultrasound pending read. Patient was seen and discussed with my attending physician Dr. Terrence DERAS and my senior resident Dr. Arina DERAS PGY-2. Will Soto DO PGY-1. Attending Provider Attestation/Addendum After examination of the patient and review of the clinical data I feel that this patient needs admission to the hospital for further treatment/evaluation. Plan of care discussed with patient and is in agreement. I Ruma Ocampo MD, attest that I was physically present for ball portions of evaluation, and examined patient, labs and imagings and plan of care were discussed with IM residents team, and I agree with the findings and plans documented above.
[2025-10-11 06:34] LABS: INR 1.1 (0.9-1.3); Partial Thromboplastin Time 23.9 Seconds (22.0-36.0); Prothrombin Time 11.2 Seconds (9.0-12.2)
[2025-10-11 06:54] LABS: Carcinoembryonic Antigen 1.5 ng/mL (0.0-5.0)
[2025-10-11 07:05] LABS: CA 125 74.0 U/mL (<30.2)
[2025-10-11 09:01] LABS: Hematocrit 25.6 % (36.0-46.0)
[2025-10-11] MEDS: GABAPENTIN 100 MG CAPSULE PO ×2 (09:02→15:26)
[2025-10-11] MEDS: METOPROLOL SUCCINATE XL 25 MG TABCR PO (09:02)
[2025-10-11 09:05] LABS: Hemoglobin 7.9 g/dL (12.0-16.0)
[2025-10-11] MEDS: BUMETANIDE INJ 0.25 MG/ML VIAL 4 ML 2 MG IVP (10:18)
--- NOTE | 2025-10-11 14:49 | ESPR_ITS ---
<Statement entered by Efren Ness MD - 10/11/25 15:57> I saw and examined patient personally and supervised PGY 1 resident, Dr. Alas with formulating a management plan. I agree with the documentation with the exceptions as listed below. 55-year-old female past medical history of diabetes, CHF, anoxic brain injury, uterine fibroid, and A-fib presented to the ED in the late evening of 10/10/2025 with chief complaint of vaginal bleeding. She was found to have a hemoglobin of 6.3. 2 units of blood were ordered. Upon admission she was receiving her second unit. Patient was admitted for acute blood loss anemia secondary to postmenopausal bleeding. Problem list: 1. Acute blood loss anemia secondary to postmenopausal bleeding 2. History of atrial fibrillation 3. Insulin-dependent diabetes mellitus type 2 4.? CHF 5. Obesity class III 6. History of anoxic brain injury Patient is a resident of [facility] for the past 2 years since she had anoxic brain injury. She had menopause at age 43 but quit 3 months ago started to have postmenopausal bleeding reported as soaking 5 pads every 2-3 hours with large clots. She has had multiple emergency department visits for this complaint but has failed to follow-up outpatient. On this admission patient was treated with tranexamic acid and transfused 2 units PRBCs after which her globin improved from 6.3 on admission to 7.9. Repeat H&H was ordered for 1800. FREIGHT CLERK, Dr Cates is also consulted for recommendations regarding postmenopausal bleeding. Plan of care discussed with Attending Dr. Reggie Ness MD PGY 2 Disclaimer: This note was dictated by speech recognition. Minor errors in school cafeteria cook head may be present due to voice recognition software. Documentation for date of: 10/11/25 Subjective Subjective Interval history: Patient is a poor historian. She reports 3 days of vaginal bleeding with clots. She mentioned that her normal menstrual cycle stopped at age 43, and states that bleeding retarted about couple months ago for 1 episode, and another one that began 3 days ago. She states that she has been using 5 pads daily. She endorses dizziness. She does not know what medication she takes. Exam Vital Signs Temp Pulse Resp BP Pulse Ox O2 Del Method O2 Flow Rate 97.3 F 93 18 101/79 95 Nasal Cannula 2 10/11/25 12:00 10/11/25 12:00 10/11/25 12:00 10/11/25 12:00 10/11/25 12:00 10/11/25 12:00 10/11/25 12:00 Narrative Exam General: Obese woman. Awake and in no acute distress. Conversational and non- toxic appearing. Neurologic: No gross neurological deficit, and patient able to move all 4 extremities. HEENT: Normocephalic, atraumatic, mucous membranes moist. Pupils reactive to light. Heart: Regular rate and rhythm, normal S1 and S2, no murmurs. Lungs: Clear to auscultation bilaterally with no wheezing or crackles. Abdomen: Soft, nondistended, nontender. No guarding or rebound tenderness. Extremities: No edema. 2+ radial and dorsalis pedis pulses bilaterally. Skin: Warm. Dry. No rash or ecchymoses. Plastic Parts Designer: Difficult exam due to body habitus: Dried blood around the introitus. Slow active vaginal bleeding into PureWick, which looks like it was placed by ED for the purpose of collecting blood not urine. Less than 100 mL in the collection jar (unknown how long this has been in place). Objective Labs 10/11/25 07:47 10/10/25 22:32 Labs: Laboratory Results - last 24 hr 10/10/25 10/10/25 10/11/25 22:32 23:25 00:00 WBC 12.4 H RBC 2.61 L Hgb 6.3 L* Hct 21.1 L* MCV 81 MCH 24.1 L MCHC 29.9 L RDW Std Deviation 44.9 Plt Count 256 D Neut % (Auto) 72 Lymph % (Auto) 18 [place] % (Auto) 6 Eos % (Auto) 4 Baso % (Auto) 0 Neut # (Auto) 8.9 H Lymph # (Auto) 2.3 [place] # (Auto) 0.7 Eos # (Auto) 0.4 Baso # (Auto) 0.1 Immature Gran # (Auto) 0.04 H Absolute Nucleated RBC 0.00 Immature Gran % 0 Nucleated RBC % 0 Smear Path Review Sent to Pathologist PT INR APTT Sodium 140 Potassium 3.6 Chloride 99 Carbon Dioxide 33.5 H Anion Gap 8 BUN 15 Creatinine 1.1 Estim Creat Clear Calc 80.0 eGFR 59 L BUN/Creatinine Ratio 14 Glucose 173 H Calculated Osmolality 284 Calcium 8.5 Corrected Calcium 8.9 Total Bilirubin 0.4 AST 20 ALT 12 Alkaline Phosphatase 86 Total Protein 6.6 Albumin 3.5 Globulin 3.1 Albumin/Globulin Ratio 1.1 L Carcinoembryonic Ag CA 125 Antigen HCG, Qual Negative Ur Collection Type Clean Catch Urine Color Yellow Urine Clarity Clear Urine pH 5.0 Ur Specific [place] 1.023 Urine Protein Negative Urine Glucose (UA) Negative Urine Ketones Negative Urine Blood Negative Urine Nitrite Negative Urine Bilirubin Negative Urine Urobilinogen (Auto) 2.0 Ur Leukocyte Esterase Positive Urine RBC < 1 Urine WBC 14 H Ur Squamous Epith Cells 4 Urine Bacteria 1+ A Ur Culture Indicated? Yes Blood Type O Positive Antibody Screen POSITIVE Antibody Identification Cold Antibody Crossmatch See Detail Blood Bank Wristband ID Yes 10/11/25 10/11/25 06:13 07:47 WBC RBC Hgb 7.9 L D Hct 25.6 L MCV MCH MCHC RDW Std Deviation Plt Count Neut % (Auto) Lymph % (Auto) [place] % (Auto) Eos % (Auto) Baso % (Auto) Neut # (Auto) Lymph # (Auto) [place] # (Auto) Eos # (Auto) Baso # (Auto) Immature Gran # (Auto) Absolute Nucleated RBC Immature Gran % Nucleated RBC % Smear Path Review PT 11.2 INR 1.1 APTT 23.9 Sodium Potassium Chloride Carbon Dioxide Anion Gap BUN Creatinine Estim Creat Clear Calc eGFR BUN/Creatinine Ratio Glucose Calculated Osmolality Calcium Corrected Calcium Total Bilirubin AST ALT Alkaline Phosphatase Total Protein Albumin Globulin Albumin/Globulin Ratio Carcinoembryonic Ag 1.5 CA 125 Antigen 74.0 H HCG, Qual Ur Collection Type Urine Color Urine Clarity Urine pH Ur Specific [place] Urine Protein Urine Glucose (UA) Urine Ketones Urine Blood Urine Nitrite Urine Bilirubin Urine Urobilinogen (Auto) Ur Leukocyte Esterase Urine RBC Urine WBC Ur Squamous Epith Cells Urine Bacteria Ur Culture Indicated? Blood Type Antibody Screen Antibody Identification Crossmatch Blood Bank Wristband ID Quality Measures Quality Measures none Assessment & Plan Assessment Current Active Medications: Generic Name Dose Route Start Last Admin Trade Name Freq PRN Reason Stop Dose Admin Acetaminophen 650 mg 10/11/25 05:44 Acetaminophen 325 Mg Tablet PO 11/10/25 05:43 Q6H PRN Fever >100.4 Albuterol/Ipratropium 3 ml 10/11/25 07:49 Albuterol/Ipratropium (Duoneb) Rt Chely 3 Ml Nebu INH 11/10/25 07:48 Q2HR PRN SHORTNESS OF BREATH OR WHEEZE Atorvastatin Calcium 40 mg 10/11/25 21:00 Atorvastatin Calcium 20 Mg Tablet PO 11/10/25 20:59 HS FRANK Gabapentin 100 mg 10/11/25 08:00 10/11/25 09:02 Gabapentin 100 Mg Capsule PO 11/10/25 07:59 100 mg TID FRANK Administration Metoprolol Succinate 25 mg 10/11/25 09:00 10/11/25 09:02 Metoprolol Succinate Xl 25 Mg Tabcr PO 11/10/25 08:59 25 mg QDAY FRANK Administration Plan 55-year-old female past medical history of diabetes, CHF, anoxic brain injury, uterine fibroid, and A-fib presented to the ED in the late evening of 10/10/2025 with chief complaint of vaginal bleeding. She was found to have a hemoglobin of 6.3. 2 units of blood were ordered. Upon admission she was receiving her second unit. Patient was admitted for acute blood loss anemia secondary to suspected bleeding from uterine fibroids. #Acute normocytic anemia secondary to postmenopausal bleeding #Bleeding uterine fibroid * Hemoglobin 6.3 hematocrit 21.1 on arrival * Patient presented with 3-day history of vaginal bleeding with clots and associated dizziness * She mentioned that her normal menstrual cycles stopped at age 43 and described them as restarting this year with normal cycles using 5 pads daily for 5 days at a time. She does not recall her last menstrual period. * Patient had no active bleeding from the vagina on exam * Patient has had multiple previous visits for vaginal bleeding with associated clots * She was referred to outpatient FREIGHT CLERK but did not follow-up * after second unit of pRBC transfusion, Hgb 7.9 * US Pelvis showed enlarged uterus 13.4 cm, endometrial stripe 0.5 cm, no uterine mass or intrauterine gestation. Plan: * FREIGHT CLERK Dr Cates consulted; appreciate recommendations * Given Bumex IV 2mg x1 for volume introduction * Avoiding chemical anticoagulation #A-fib * Per chart review patient has a history of A-fib and is on Eliquis * EKG showed sinus rhythm with frequent PVCs, QTc 503, rate 97. Plan: * Holding for now in the setting of vaginal bleed #History of anoxic brain injury * Per chart review * Patient has lived at [facility] for 2 years * Precipitation event for anoxic brain injury unknown Plan: * No direct intervention at this time #Asymptomatic Pyuria * Urinalysis showed 14 WBCs, 1+ bacteria, leukocyte esterase positive Plan: * No direct intervention at this time #Diabetes? * Per chart review * Glucose 173 on arrival Plan: * ordered HgbA1c * insulin sliding scale #History of CHF? * Per chart review * Patient does not appear to be in acute CHF exacerbation on exam, negative for crackles or pitting edema * No echo on file * Unclear if patient taking diuretics Plan: * Pending med rec * No direct intervention at this time Hospital Maintenance: DVT ppx: SCDs, avoiding chemical prophylaxis Diet: diet regular IV lines: Peripheral IVs Hurd?: PureWick Code status: Full code Dispo: Telemetry monitoring floor, transfusing second unit of blood on admission, follow-up posttransfusion H&H, gynecology consulted, pelvic ultrasound pending read. This case was discussed with my attending physician, Dr. Paredes, and senior resident, Dr Ness. Even though this this note was carefully revised there may still be minor errors in school cafeteria cook head due to voice recognition software. Myrna Alas, PGY I Attending Provider Attestation/Addendum Patient admitted for abnormal uterine bleeding and acute blood loss anemia. Pending DIGITAL ENGINEER evaluation. Discussed with housestaff. Monitor hemoglobin hematocrit.
[2025-10-11] MEDS: INSULIN LISPRO (AdmeLOG) 1 UNIT/0.01 ML UNIT SC (17:55)
[2025-10-11 18:53] LABS: Hematocrit 23.0 % (36.0-46.0); Hemoglobin 7.1 g/dL (12.0-16.0)
--- NOTE | 2025-10-11 21:50 | PC.NURSE ---
MD Cates assessed pt at bedside at 2145, MD Cates notified pt that hysterectomy sx will be needed (potentially scheduled for 10/13/25)
--- NOTE | 2025-10-11 21:53 | ESCONSULT_ITS ---
LIBRARY TECHNICAL ASSISTANT HPI Data of Consult Patient: new to practice Consult date: 10/11/25 Requesting Physician: Ruma Ocampo MD Primary Care Provider: Jeni Rojas MD Consult Narrative Reason for consult: vaginal bleeding History of present illness: The patient is a 55-year-old female with postmenopausal bleeding for the last 2 to 3 years. [facility] She is a poor historian. She states she has had 3 C-sections and hernia repair. She is unsure if she has mesh in place. She has many chronic medical problems including anoxic brain injury, CHF, COPD, stage III chronic kidney disease, GERD ,arthritis, type 2 diabetes ,A-fib on blood thinners and is currently on 3 L of oxygen, even in the convalescent hospital. She is morbidly obese with a BMI of 61. She states she is in charge of her medical decisions. She is a full code. She states she does not get up and ambulate because she has some type of foot drop in one of her legs. Upon reviewing 2 to 3 years of ER visits and admissions, the patient has been treated multiple times since January 2023 with blood transfusions for vaginal bleeding. I counted at least 6 trips to the ER or admissions for blood transfusions over the last 2 years. Patient has received 2 to 3 units of packed blood cells on each of these admissions. A conservative estimate of how much blood she has received would be approximately 12 to 18 units of packed red blood cells over the last 2 years. On of her admissions, she was given IV estrogen which is not a good long-term solution based on the patient's multiple comorbid conditions. She was admitted for another transfusion and I was consulted by the medicine team. Of note during most of her admissions it was suggested that she follow-up as an outpatient with gynecology. The patient has not done this. One of her ultrasounds reveals an enlarged uterus with some type of fibroid present. All her ultrasound imaging is suboptimal secondary to her morbid abdominal obesity. After reviewing the chart and rounding on the patient, I feel the only way to prevent the patient from coming back to the emergency room multiple times for blood is to proceed with an abdominal hysterectomy. This will likely need to be a supracervical hysterectomy. Due to her multiple medical problems and morbid obesity this will be scheduled with another gynecologic physician. She will likely need to be transfused up to at least hemoglobin of 10-11 before surgery. We will try to schedule this surgery October 13. There is really not another long-term solution for her bleeding bleeding, she is not a candidate for a uterine ablation and this would likely be difficult secondary to the patient's body habitus. It would be highly unlikely we could get a Mirena IUD in place. Hormone therapy is not going to be effective. The patient is at risk for uterine carcinoma and if this is discovered at surgery, she will have to be referred to a cancer care center. At some point, long-term health expectations and goals and possibly an end-of-life discussion means needs to happen with the patient and a responsible surgery center administrator present. The patient did not mention any family members that consistently visit her except for her 19-year-old son who lives in [place]. The patient reports bleeding onto diapers and having to have these changed to 5- 6 times a day. She denies foul discharge or severe pain. No fevers or chills. She is not sure when she last had gynecological care including a Pap smear mammogram or pelvic exam. cc:: cc: Ruma Ocampo MD Review of Systems Review of Systems Narrative Review of Systems: Continued vaginal bleeding over 2 to 3 years as above, no pain, no fevers no chills no foul discharge Past Medical History Past Medical History Comments PMH COMMENT: Per extensive chart review: CHF COPD on 3 L of O2 History of a CVA Anoxic brain injury Chronic kidney disease stage III GERD Arthritis History of A-fib on blood thinners Type 2 diabetes Foot drop Past surgical history x 3 and some type of umbilical hernia repair Consistent postmenopausal bleeding over 2 to 3 years requiring multiple blood transfusions Meds Home Medications and Allergies Home Medications ?Medication ?Instructions ?Recorded ?Confirmed ?Type acetaminophen 325 mg tablet 650 mg PO Q6H PRN pain 07/2810/11/25 History (Tylenol) albuterol sulfate 2.5 mg/3 mL 2.5 mg inhalation BID IN N 10/11/25 10/11/25 History (0.083 %) solution for nebulization shortness of breat h or wheezing apixaban 2.5 mg tablet 2.5 mg PO BID 10/11/2510/11 History ascorbic acid (vitamin C) 500 mg 500 mg PO DAILY 10/1110/11/25 History capsule atorvastatin 40 mg tablet (Lipitor) 40 mg PO QPM 10/1110/11/25 History bumetanide 2 mg tablet 2 mg PO QDAY 10/11/25 History ergocalciferol (vitamin D2) 1,250 1,250 mcg PO QWEEK 1 12/12/24 10/11/25 History mcg (50,000 unit) capsule (Vitamin D2) gabapentin 300 mg capsule 300 mg PO BID 10/11/2510/11 History insulin aspart U-100 100 unit/mL 1 sliding scale dose subcut 10/11/25 10/11/25 History (3 mL) subcutaneous pen (Novolog USEASDIRECTD FlexPen U-100 Insulin aspart) insulin glargine 100 unit/mL (3 24 unit subcut .COMPLE X 10/11/25 10/11/25 History mL) subcutaneous pen (Lantus Solostar U-100 Insulin) magnesium 200 mg tablet 400 mg PO BID 10/11/2510/11 History magnesium hydroxide 400 mg/5 mL 30 ml PO DAILY constip ation 10/11/25 10/11/25 History oral suspension melatonin 3 mg capsule 6 mg PO HS PRN sleep 5 10/11/25 History metoprolol succinate 25 mg 25 mg PO DAILY 10/11/2507/28 History tablet,extended release 24 hr (Toprol XL) multivitamin (Daily Multi-Vitamin 1 tab PO QDAY 10/11/25 History tablet) pantoprazole 40 mg granules 40 mg PO QDAY 10/11/2507/28 History delayed-release for susp in packet (Protonix) Allergies Allergy/AdvReac Type Severity Reaction Status Date / Time Penicillins Allergy Verified 10/10/25 22:11 Exam - LIBRARY TECHNICAL ASSISTANT Vital Signs Temp Pulse Resp BP Pulse Ox O2 Del Method O2 Flow Rate 96.9 F 98 16 107/64 97 Nasal Cannula 2 10/11/25 20:00 10/11/25 20:00 10/11/25 20:00 10/11/25 20:00 10/11/25 20:00 10/11/25 20:00 10/11/25 20:00 Narrative Exam The patient's alert and talking to me. She is a poor historian. She is on 3 L oxygen via nasal cannula. Constitutional Constitutional: no acute distress and morbidly obese Routine Abdominal Exam Abdominal: Present soft and surgical scars (She is a vertical incision around her umbilicus where she states she had a hernia repair. I can see at least 2 Pfannenstiel scars.) Comments: Protuberant obese abdomen. Large suspected ventral hernia. Routine Exam Comments: Patient has blood trickling from her perineum with some clots. No discrete odor except old blood. External genitalia appear normal. Speculum exam deferred as this would have to be performed at bedside on a bedpan and would be most difficult due to patient's body habitus and the equipment available. LIBRARY TECHNICAL ASSISTANT - Results Labs 10/11/25 18:20 10/10/25 22:32 Labs: Short CBC 10/10/25 10/11/25 10/11/25 Range/Units 22:32 07:47 18:20 WBC 12.4 H (3.6-11.0) Thou/mm3 Hgb 6.3 L* 7.9 L D 7.1 L (12.0-16.0) g/dL Hct 21.1 L* 25.6 L 23.0 L (36.0-46.0) % Plt Count 256 D (140-440) Thou/mm3 BMP 10/10/25 22:32 Sodium 140 Potassium 3.6 Chloride 99 Carbon Dioxide 33.5 H BUN 15 Creatinine 1.1 Glucose 173 H Calcium 8.5 Liver Function 10/10/25 Range/Units 22:32 Total Bilirubin 0.4 (0.3-1.2) mg/dL AST 20 (0-34) U/L ALT 12 (10-49) U/L Alkaline Phosphatase 86 (46-116) U/L Albumin 3.5 (3.5-5.0) gm/dL Urine 10/10/25 Range/Units 23:25 Urine Color Yellow (Lt Yel-Yel) Urine Clarity Clear (Clear/Hazy) Urine pH 5.0 (5.0-7.0) Ur Specific [place] 1.023 (1.001-1.035) Urine Protein Negative (Neg - Trace) Urine Glucose (UA) Negative (Negative) Assessment and Plan Assessment and plan (1) Anemia: Status: Acute Assessment and plan: Patient to get transfused up to hemoglobin of 11 preop (2) Morbid obesity with BMI of 60.0-69.9, adult: Status: Acute (3) Post-menopausal bleeding: Status: Acute Assessment and plan: Will schedule abdominal supracervical hysterectomy 10/13/2025. Patient to be cleared by medicine and anesthesia. Hold all blood thinners. Patient will get readmitted to the medicine service postoperatively due to her multiple medical problems (4) History of uterine fibroid: Status: Acute (1) Anemia Qualifiers: Anemia type: iron deficiency Iron deficiency anemia type: chronic blood loss Qualified Code(s): D50.0 - Iron deficiency anemia secondary to blood loss (chronic)
[2025-10-11] MEDS: ATORVASTATIN CALCIUM 20 MG TABLET 40 MG PO (22:00)
[2025-10-11] MEDS: INSULIN DEGLUDEC 5 UNIT/0.05 ML (PER 5 UNITS) 18 UNIT SC (22:00)
[2025-10-11] MEDS: GABAPENTIN 300 MG CAPSULE PO (22:00)
[2025-10-12] VITALS (23 sets, daily range): BP systolic 99–129; BP diastolic 62–86; PULSE 90–102; RESP 15–20; TEMP 35.6–36.7; O2SAT 95–99
[2025-10-12 05:16] LABS: Basophils # (Auto) 0.1 Thou/mm3 (0.0-0.2); Basophils % (Auto) 1 % (0-2.5); Eosinophils # (Auto) 0.4 Thou/mm3 (0.0-0.5); Eosinophils % (Auto) 4 % (0-10); Hematocrit 25.1 % (36.0-46.0); Immature Granulocytes Auto 0.06 Thou/mm3 (0.00-0.00); Lymphocytes # (Auto) 2.1 Thou/mm3 (1.0-4.8); Lymphocytes % (Auto) 19 % (10-50); Mean Corpuscular HGB Conc 31.1 g/dl (31.0-37.0); Mean Corpuscular Hemoglobin 25.2 pg (25.0-35.0); Mean Corpuscular Volume 81 fL (80-100); Monocytes # (Auto) 0.6 Thou/mm3 (0.0-0.8); Monocytes % (Auto) 6 % (0-12); Neutrophils # (Auto) 7.7 Thou/mm3 (1.8-7.7); Neutrophils % (Auto) 71 % (37-80); Nucleated Red Blood Cell # 0.00 Thou/mm3 (0.00-0.00); Nucleated Red Blood Cell % 0 /100 WBC (0); Platelet Count 264 Thou/mm3 (140-440); RDW Standard Deviation 43.4 fL (36.4-46.3); Red Blood Count 3.09 Miln/mm3 (4.00-5.20); White Blood Count 11.0 Thou/mm3 (3.6-11.0)
[2025-10-12 05:30] LABS: Hemoglobin 7.8 g/dL (12.0-16.0)
[2025-10-12 05:33] LABS: Glucose Estimated Average 143 mg/dL (80-131); Hemoglobin A1C 6.6 % Hgb (4.8-6.0)
[2025-10-12 06:19] LABS: Alanine Aminotransferase 10 U/L (10-49); Albumin, Serum 3.6 gm/dL (3.5-5.0); Albumin/Globulin Ratio 1.3 (1.2-2.2); Alkaline Phosphatase 83 U/L (46-116); Anion Gap 8 (7-16); Aspartate Amino Transferase 18 U/L (0-34); BUN/Creatinine Ratio 16 Ratio (12-20); Bilirubin,Total 1.0 mg/dL (0.3-1.2); Blood Urea Nitrogen 16 mg/dL (9-23); Calcium 8.8 mg/dL (8.3-10.6); Calcium (Corrected) 9.1 mg/dL (8.5-10.1); Carbon Dioxide 32.5 mMol/L (20.0-31.0); Chloride 100 mMol/L (98-107); Creatinine (Component) 1.0 mg/dL (0.6-1.3); Estimated Creatinine Clearance 88.4 mL/min (>60); Globulin 2.8 gm/dL (2.3-3.5); Glucose 164 mg/dL (74-106); Magnesium 1.7 mg/dL (1.6-2.6); Osmolality,Calculated 284 (275-295); Potassium 3.5 mMol/L (3.4-5.1); Sodium 140 mMol/L (136-145); Total Protein 6.4 gm/dL (5.7-8.2); eGFR > 60 See Note
[2025-10-12] MEDS: BUMETANIDE 0.5 MG TABLET 2 MG PO (08:24)
[2025-10-12] MEDS: GABAPENTIN 300 MG CAPSULE PO ×2 (08:24→20:33)
[2025-10-12] MEDS: METOPROLOL SUCCINATE XL 25 MG TABCR PO (08:25)
--- NOTE | 2025-10-12 09:45 | PC.SS ---
Follow up note: OB consulting. Receiving blood transfusion. Pt will return home upon dc.
[2025-10-12] MEDS: INSULIN LISPRO (AdmeLOG) 1 UNIT/0.01 ML UNIT SC ×2 (11:51→17:21)
--- NOTE | 2025-10-12 12:08 | ESPR_ITS ---
<Statement entered by Efren Ness MD - 10/12/25 20:20> I saw and examined patient personally and supervised PGY 1 resident, Dr. Alas with formulating a management plan. I agree with the documentation with the exceptions as listed below. Patient was previously scheduled for subtotal hysterectomy tomorrow, however was reevaluated by ORNAMENTER HAND on-call and assessed as high risk for extensive surgical procedure at this facility. Instead will schedule patient for D&C and biopsy tomorrow. Transfused 2 units PRBC and post H&H pending. Plan of care discussed with Attending Dr. Marshall Ness MD PGY 2 Disclaimer: This note was dictated by speech recognition. Minor errors in wash and greaser may be present due to voice recognition software. Documentation for date of: 10/12/25 Subjective Subjective Interval history: Patient was seen and examined at bedside. No acute events took place overnight. There is minimal vaginal bleeding today according to patient. Patient denies recent fever, N/V/D, chest or abdominal pain, dysuria, abnormalities to urine or stool. Exam Vital Signs Temp Pulse Resp BP Pulse Ox O2 Del Method O2 Flow Rate 96.9 F 91 17 121/77 97 Nasal Cannula 2 10/12/25 11:57 10/12/25 11:57 10/12/25 11:57 10/12/25 11:57 10/12/25 08:00 10/12/25 08:00 10/12/25 08:00 Narrative Exam General: Obese woman. Awake and in no acute distress. Conversational and non- toxic appearing. Neurologic: No gross neurological deficit, and patient able to move all 4 extremities. HEENT: Normocephalic, atraumatic, mucous membranes moist. Pupils reactive to light. Heart: Regular rate and rhythm, normal S1 and S2, no murmurs. Lungs: Clear to auscultation bilaterally with no wheezing or crackles. Abdomen: Soft, nondistended, nontender. No guarding or rebound tenderness. Extremities: No edema. 2+ radial and dorsalis pedis pulses bilaterally. Skin: Warm. Dry. No rash or ecchymoses. Lens Generator: Difficult exam due to body habitus: Dried blood around the introitus. Slow active vaginal bleeding into PureWick, which looks like it was placed by ED for the purpose of collecting blood not urine. Less than 100 mL in the collection jar (unknown how long this has been in place). Objective Labs 10/13/25 04:25 10/13/25 04:25 Labs: Laboratory Results - last 24 hr 10/10/25 10/11/25 10/12/25 22:32 18:20 04:15 WBC 11.0 RBC 3.09 L Hgb 7.1 L 7.8 L Hct 23.0 L 25.1 L MCV 81 MCH 25.2 MCHC 31.1 RDW Std Deviation 43.4 Plt Count 264 Neut % (Auto) 71 Lymph % (Auto) 19 [place]arro % (Auto) 6 Eos % (Auto) 4 Baso % (Auto) 1 Neut # (Auto) 7.7 Lymph # (Auto) 2.1 [place]arro # (Auto) 0.6 Eos # (Auto) 0.4 Baso # (Auto) 0.1 Immature Gran # (Auto) 0.06 H Absolute Nucleated RBC 0.00 Immature Gran % 1 H Nucleated RBC % 0 Sodium 140 Potassium 3.5 Chloride 100 Carbon Dioxide 32.5 H Anion Gap 8 BUN 16 Creatinine 1.0 Estim Creat Clear Calc 88.4 eGFR > 60 BUN/Creatinine Ratio [address] Glu mg/dL 143 H Hemoglobin A1c 6.6 H Calculated Osmolality 284 Calcium 8.8 Corrected Calcium 9.1 Magnesium 1.7 Total Bilirubin 1.0 D AST 18 ALT 10 Alkaline Phosphatase 83 Total Protein 6.4 Albumin 3.6 Globulin 2.8 Albumin/Globulin Ratio 1.3 Blood Type O Positive Antibody Screen POSITIVE Antibody Identification Cold Antibody Crossmatch See Detail Blood Bank Wristband ID Yes Quality Measures Quality Measures none Assessment & Plan Assessment Current Active Medications: Generic Name Dose Route Start Last Admin Trade Name Freq PRN Reason Stop Dose Admin Acetaminophen 650 mg 10/11/25 05:44 Acetaminophen 325 Mg Tablet PO 11/10/25 05:43 Q6H PRN Fever >100.4 Albuterol/Ipratropium 3 ml 10/11/25 07:49 Albuterol/Ipratropium (Duoneb) Rt Chely 3 Ml Nebu INH 11/10/25 07:48 Q2HR PRN SHORTNESS OF BREATH OR WHEEZE Atorvastatin Calcium 40 mg 10/11/25 21:00 10/11/25 22:00 Atorvastatin Calcium 20 Mg Tablet PO 11/10/25 20:59 40 mg HS FRANK Administration Bumetanide 2 mg 10/12/25 09:00 10/12/25 08:24 Bumetanide 0.5 Mg Tablet PO 11/11/25 08:59 2 mg QDAY FRANK Administration Bumetanide 2 mg 10/12/25 10:53 Bumetanide Inj 0.25 Mg/Ml Vial 4 Ml IVP X1 PRN give after 1st prbc unit Dextrose 25 ml 10/11/25 16:32 Dextrose 50%-Water Inj 50 Ml Syringe IV 11/10/25 16:31 Q15MIN PRN BG 50-70 responsive npo pt Dextrose 50 ml 10/11/25 16:32 Dextrose 50%-Water Inj 50 Ml Syringe IV 11/10/25 16:31 Q15MIN PRN BG <50 OR BG <70 & pt unresponsive Gabapentin 300 mg 10/11/25 21:00 10/12/25 08:24 Gabapentin 300 Mg Capsule PO 11/10/25 20:59 300 mg BID FRANK Administration Glucagon 1 mg 10/11/25 16:32 Glucagon Inj 1 Mg Vial IM Q15MIN PRN BG <70, and no IV access Insulin Degludec 18 unit 10/11/25 21:00 10/11/25 22:00 Insulin Degludec 5 Unit/0.05 Ml (Per 5 Units) SC 11/10/25 20:59 18 unit QDAY@2100 FRANK Administration Insulin Human Lispro 0 unit 10/11/25 17:00 10/12/25 11:51 Insulin Lispro (Admelog) 1 Unit/0.01 Ml Unit SC 11/10/25 16:59 2 unit [facility] Administration Protocol Melatonin 6 mg 10/11/25 22:01 Melatonin 3 Mg Tablet PO 11/10/25 22:00 HS PRN sleep Metoprolol Succinate 25 mg 10/11/25 09:00 10/12/25 08:25 Metoprolol Succinate Xl 25 Mg Tabcr PO 11/10/25 08:59 25 mg QDAY FRANK Administration Plan 55-year-old female past medical history of diabetes, CHF, anoxic brain injury, uterine fibroid, and A-fib presented to the ED in the late evening of 10/10/2025 with chief complaint of vaginal bleeding. She was found to have a hemoglobin of 6.3. 2 units of blood were ordered. Upon admission she was receiving her second unit. Patient was admitted for acute blood loss anemia secondary to suspected bleeding from uterine fibroids. #Acute normocytic anemia secondary to postmenopausal bleeding #Bleeding uterine fibroid * Hemoglobin 6.3 hematocrit 21.1 on arrival * Patient presented with 3-day history of vaginal bleeding with clots and associated dizziness * She mentioned that her normal menstrual cycles stopped at age 43 and described them as restarting this year with normal cycles using 5 pads daily for 5 days at a time. She does not recall her last menstrual period. * Patient had no active bleeding from the vagina on exam * Patient has had multiple previous visits for vaginal bleeding with associated clots * She was referred to outpatient ORNAMENTER [facility] but did not follow-up * after second unit of pRBC transfusion, Hgb 7.9 * US Pelvis showed enlarged uterus 13.4 cm, endometrial stripe 0.5 cm, no uterine mass or intrauterine gestation. * CA-125 Ag 74 (H), CEA 1.5 (WNL) Plan: * ORNAMENTER HAND Dr Cates consulted; appreciate recommendations * ordered 2u pRBC with post-transfusion H&H aiming for goal of Hgb 10-11 before procedure. * scheduled for gynocologic Dilitation and Curettage tomorrow * ordered coagulopathy panel * Started megestrol acetate PO 40mg bid * Avoiding chemical anticoagulation #A-fib * Per chart review patient has a history of A-fib and is on Eliquis * EKG showed sinus rhythm with frequent PVCs, QTc 503, rate 97. Plan: * Holding for now in the setting of vaginal bleed #History of anoxic brain injury * Per chart review * Patient has lived at [facility] for [facility] years * Precipitation event for anoxic brain injury unknown Plan: * No direct intervention at this time #Asymptomatic Pyuria * Urinalysis showed 14 WBCs, 1+ bacteria, leukocyte esterase positive Plan: * No direct intervention at this time #Diabetes * Per chart review * Glucose 173 on arrival * HgbA1c 6.6 Plan: * Degludec 18u HS * insulin sliding scale #History of CHF? * Per chart review * Patient does not appear to be in acute CHF exacerbation on exam, negative for crackles or pitting edema * No echo on file * Unclear if patient taking diuretics Plan: * Bumex PO 2mg Qday * metoprolol PO 25mg Qday * Atorvastatin PO 40mg HS * No direct intervention at this time Hospital Maintenance: DVT ppx: SCDs, avoiding chemical prophylaxis Diet: diet regular IV lines: Peripheral IVs Hurd?: PureWick Code status: Full code Dispo: Telemetry monitoring floor, transfusing second unit of blood on admission, follow-up posttransfusion H&H, gynecology consulted, pelvic ultrasound pending read. This case was discussed with my attending physician, Dr. Olivares, and senior resident, Dr Ness. Even though this this note was carefully revised there may still be minor errors in wash and greaser due to voice recognition software. Myrna Alas, PGY I Attending Provider Attestation/Addendum I reviewed labs, imaging, EKG, home medications and prior available records. Face to face evaluation was performed by me. I have personally examined the patient and discussed assessment and plan with the IM team. I reviewed the resident note and agree with the plan with exceptions as below. Acute blood loss anemia Vaginal bleed Uterine fibroids versus mass Generalized weakness Atrial fibrillation on Eliquis Insulin-dependent diabetes mellitus Status post PRBC transfusion next monitor H&H after transfusion Consulted INTRAMURAL DIRECTOR: Recommended additional 2 PRBC transfusion. Will plan for surgery on 10/13 Held Eliquis Continue insulin degludec plus sliding scale insulin and monitor fingersticks
--- NOTE | 2025-10-12 13:37 | ECHO_ITS ---
Patient Info Name: Edwige Smith Age: 55 years : 1970 Gender: Female Ht: 155 cm Wt: 148 kg BSA: 2.64 m2 BP: 122 / 78 mmHg HR: 99 bpm Exam Date: 10/12/2025 2:18 PM Admit Date: 10/11/2025 Site: [facility] Room Number: [id number] Patient Status: I Technical Quality: Poor Exam Type: CA echo doppler complete Reason for Poor Study: body habitus Administrative Services Specialist: Aida Dhillon Ordering Physician: Efren Ness Study Info Indications Cardiac Clearancefor Hysterectomy - Primary Location: S2NX Left Ventricular Outflow Tract Name Value Normal LVOT 2D LVOT Diameter 2.1 cm LVOT Doppler LVOT Peak Velocity 119 cm/s LVOT Mean Gradient 3 mmHg LVOT VTI 22 cm LVOT VTI/AV VTI Ratio 0.7 LVOT Stroke Volume 75 ml Pulmonic Valve Name Value Normal PV Doppler PV Peak Velocity 103 cm/s Mitral Valve Name Value Normal MV Doppler MV Decel Gage 720 cm/s2 MV PHT 36 ms MV Area (PHT) 6.2 cm2 4.0-5.0 MV Diastolic Function MV E Peak Velocity 89 cm/s MV A Peak Velocity 107 cm/s MV E/A 0.8 MV Annular TDI MV Septal e' Velocity 6.0 cm/s MV E/e' (Septal) 14.8 MV Lateral e' Velocity 8.5 cm/s MV E/e' (Lateral) 10.5 MV e' Average 7.24 cm/s MV E/e' (Average) 12.7 Tricuspid Valve Name Value Normal TV Regurgitation Doppler TR Peak Velocity 288 cm/s Estimated PAP/RSVP RA Pressure 3 mmHg <=5 PA Systolic Pressure 36 mmHg <36 RV Systolic Pressure 36 mmHg <36 Aortic Valve Name Value Normal AV 2D/MM AV Cusp Sep (MM) 1.2 cm AV Doppler AV Peak Velocity 178 cm/s AV Mean Gradient 7 mmHg AV VTI 31 cm AV Area (Cont Eq VTI) 2.4 cm2 >=3.0 AV Area (Cont Eq Emir) 2.3 cm2 AV DI (Emir) 0.67 AV Regurgitation 2D LVOT Area 3.5 cm2 Ventricles Name Value Normal LV Dimensions 2D/MM IVS Diastolic Thickness (2D) 0.9 cm 0.6-0.9 LVID Diastole (2D) 5.6 cm 3.8-5.2 LVIW Diastolic Thickness (2D) 1.3 cm 0.6-0.9 LVID Systole (2D) 3.7 cm 2.2-3.5 LVOT Diameter 2.1 cm LV Mass (2D Cubed) 249.31 g 67.00-162.00 LV Mass Index (2D Cubed) 95 g/m2 43-95 Relative Wall Thickness (2D) 0.46 <=0.42 IVS/LVIW Diastolic Thickness (2D) 0.69 0.00-1.50 LV Fractional Shortening/Ejection Fraction 2D/MM LV Fractional Shortening (2D) 34 % 27-45 LV EF (2D Teichholz) 62 % Atria Name Value Normal LA Dimensions LA Volume (4C A-L) 32 ml LA Volume (BP A-L) 42 ml Left Ventricle Left ventricular chamber dimension is normal. Left ventricular systolic function is normal with visually estimated ejection fraction of 55-60%. There is concentric remodeling noted in the left ventricle. Left ventricular segmental wall motion is normal. There is grade I diastolic dysfunction in the left ventricle. Right Ventricle Right ventricular chamber dimension is normal. Right ventricular systolic function is normal. Left Atrium Left atrial chamber dimension is normal. Right Atrium Right atrial chamber dimension is normal. Aortic Valve The aortic valve is trileaflet. There is no aortic valve sclerosis. There is no aortic valve stenosis with a peak velocity of 178 cm/s, mean gradient of 7 mmHg, and aortic valve area of 2.4 cm2. There is no aortic valve regurgitation. Pulmonic Valve The pulmonic valve is normal. There is no pulmonic valve stenosis. There is no pulmonic regurgitation. Mitral Valve The mitral valve has normal leaflets. There is no mitral valve stenosis. There is mild mitral valve regurgitation. Tricuspid Valve The tricuspid valve leaflets are normal. There is no tricuspid valve stenosis. There is mild tricuspid valve regurgitation. Pulmonary hypertension, estimated pulmonary arterial systolic pressure is 36 mmHg and systemic blood pressure of 122 mmHg in systole. Pericardium/Pleural The pericardium appears normal. There is trivial pericardial effusion with no tamponade. No pleural effusion visualized. Inferior Vena Cava Not well visualized inferior vena cava with >50% collapse upon inspiration consistent with normal right atrial pressure, 3 mmHg. Aorta The aortic measurements are indexed to age and body surface area. The aortic root at the sinus of Valsalva is not well visualized. The prox ascending aorta is not well visualized. Summary 1. Left ventricle size is normal and systolic function is normal. Estimated ejection fraction is 55-60%. There is grade I diastolic dysfunction. 2. Right ventricle chamber size is normal and systolic function is normal. Estimated RVSP is 36 mmHg with RAP 3. Mild HTN. 3. There is mild mitral and tricuspid valve regurgitation. 4. Not well visualized IVC with estimated RA pressure 3 mmHg. 5. There is trivial pericardial effusion with no tamponade. Report Signatures Finalized by Alonzo Braun on 10/13/2025 08:15 AM
--- NOTE | 2025-10-12 13:43 | EKG_ITS ---
[facility] Test Date: 2025-10-12 Pat Name: JOSE STINSON Department: Room: [facility] Gender: Female Clinical Data Abstractor: ISIDRA : 1970 Requested By: Efren Ness Order Number: [id number] Reading MD: Efren Ness Measurements Intervals [place] Rate: 91 P: 63 DC: 188 QRS: 29 QRSD: 103 T: 68 QT: 400 QTc: 493 Interpretive Statements SINUS RHYTHM WITH OCCASIONAL VENTRICULAR PREMATURE COMPLEXES WITH OCCASIONAL SUPRAVENTRICULAR PREMATURE COMPLEXES Compared to ECG 10/10/2025 23:12:35 T-wave abnormality no longer present /store/S0/[id number].pdf
[2025-10-12 14:06] LABS: Troponin I < 0.020 ng/mL (0.0-0.045)
--- NOTE | 2025-10-12 14:55 | ESPR_ITS ---
Documentation for date of: 10/12/25 CURATOR HERBARIUM Subjective Subjective Interval history: review from 10/11/2025 The patient is a 55-year-old female with postmenopausal bleeding for the last 2 to 3 years. She resides at a [facility]. She is a poor historian. She states she has had 3 C-sections and hernia repair. She is unsure if she has mesh in place. She has many chronic medical problems including anoxic brain injury, CHF, COPD, stage III chronic kidney disease, GERD ,arthritis, type 2 diabetes ,A-fib on blood thinners and is currently on 3 L of oxygen, even in the convalescent hospital. She is morbidly obese with a BMI of 61. She states she is in charge of her medical decisions. She is a full code. She states she does not get up and ambulate because she has some type of foot drop in one of her legs. Upon reviewing 2 to 3 years of ER visits and admissions, the patient has been treated multiple times since January 2023 with blood transfusions for vaginal bleeding. I counted at least 6 trips to the ER or admissions for blood transfusions over the last 2 years. Patient has received 2 to 3 units of packed blood cells on each of these admissions. A conservative estimate of how much blood she has received would be approximately 12 to 18 units of packed red blood cells over the last 2 years. On of her admissions, she was given IV estrogen which is not a good long-term solution based on the patient's multiple comorbid conditions. She was admitted for another transfusion and I was consulted by the medicine team. Of note during most of her admissions it was suggested that she follow-up as an outpatient with gynecology. The patient has not done this. One of her ultrasounds reveals an enlarged uterus with some type of fibroid present. All her ultrasound imaging is suboptimal secondary to her morbid abdominal obesity. After reviewing the chart and rounding on the patient, I feel the only way to prevent the patient from coming back to the emergency room multiple times for blood is to proceed with an abdominal hysterectomy. This will likely need to be a supracervical hysterectomy. Due to her multiple medical problems and morbid obesity this will be scheduled with another gynecologic physician. She will likely need to be transfused up to at least hemoglobin of 10-11 before surgery. We will try to schedule this surgery October 13. There is really not another long-term solution for her bleeding bleeding, she is not a candidate for a uterine ablation and this would likely be difficult secondary to the patient's body habitus. It would be highly unlikely we could get a Mirena IUD in place. Hormone therapy is not going to be effective. The patient is at risk for uterine carcinoma and if this is discovered at surgery, she will have to be referred to a cancer care center. At some point, long-term health expectations and goals and possibly an end-of-life discussion means needs to happen with the patient and a responsible plant maintenance mechanic present. The patient did not mention any family members that consistently visit her except for her 19-year-old son who lives in [place]. The patient reports bleeding onto diapers and having to have these changed to 5- 6 times a day. She denies foul discharge or severe pain. No fevers or chills. She is not sure when she last had gynecological care including a Pap smear mammogram or pelvic exam. 10/12/2025 However due to patient's multiple medical comorbidities and morbid obesity and h/o CHF and also Atrial fibrillation , she needs medical clearance for anesthesia and I would recommend starting her on megace 40 mgm po BID now and then proceeding with the diagnostic evaluation by D&C . If she has uterine cancer she may be treated with radiation and chemotherapy only and also hormonal therapy / If needed Hysterectomy also then should be performed in consultation with business enterprise officer oncologist and at the appropriate facility. . Subjective: other (patient continues to bleed vaginally / she last took het blood thinner medication, Eliquis on 10/10/2025 and that means per medicine team we have to wait for at least 48 hours prior to any surgical intervention ) Exam Vital Signs Temp Pulse Resp BP Pulse Ox O2 Del Method O2 Flow Rate 96.5 F L 93 19 122/78 99 Nasal Cannula 2 10/12/25 12:18 10/12/25 12:18 10/12/25 12:18 10/12/25 12:18 10/12/25 12:18 10/12/25 12:00 10/12/25 12:18 Urinary Catheter Management Cath placed during this visit: no CURATOR HERBARIUM - PN: Obj Data Labs 10/12/25 19:43 10/12/25 04:15 Labs: Laboratory Results - last 24 hr 10/10/25 10/11/25 10/12/25 22:32 18:20 04:15 WBC 11.0 RBC 3.09 L Hgb 7.1 L 7.8 L Hct 23.0 L 25.1 L MCV 81 MCH 25.2 MCHC 31.1 RDW Std Deviation 43.4 Plt Count 264 Neut % (Auto) 71 Lymph % (Auto) 19 Caroline % (Auto) 6 Eos % (Auto) 4 Baso % (Auto) 1 Neut # (Auto) 7.7 Lymph # (Auto) 2.1 Caroline # (Auto) 0.6 Eos # (Auto) 0.4 Baso # (Auto) 0.1 Immature Gran # (Auto) 0.06 H Absolute Nucleated RBC 0.00 Immature Gran % 1 H Nucleated RBC % 0 Sodium 140 Potassium 3.5 Chloride 100 Carbon Dioxide 32.5 H Anion Gap 8 BUN 16 Creatinine 1.0 Estim Creat Clear Calc 88.4 eGFR > 60 BUN/Creatinine Ratio [address] Glu mg/dL 143 H Hemoglobin A1c 6.6 H Calculated Osmolality 284 Calcium 8.8 Corrected Calcium 9.1 Magnesium 1.7 Total Bilirubin 1.0 D AST 18 ALT 10 Alkaline Phosphatase 83 Troponin I < 0.020 Total Protein 6.4 Albumin 3.6 Globulin 2.8 Albumin/Globulin Ratio 1.3 Blood Type O Positive Antibody Screen POSITIVE Antibody Identification Cold Antibody Crossmatch See Detail Blood Bank Wristband ID Yes CURATOR HERBARIUM - A/P Assessment and plan (1) Anemia: Status: Acute (2) Morbid obesity with BMI of 60.0-69.9, adult: Status: Acute (3) Post-menopausal bleeding: Status: Acute Assessment and plan: patient getting blood transfusion and she needs to be at least 48 hours off the blood thinners and needs medical and cardiology clearance for D&C or other surgery/ started on oral Megace 40 mgm po BID / NPO afte midnight (4) History of uterine fibroid: Status: Acute Postoperative Procedures: Procedures Operation Date: 10/13/25 12:00 <No data on this case meets the specified criteria> Time Spent With Patient Time: Total time spent is greater than 50% in coordination of care (as documented) at patient's floor/unit and/or counseling patient: Time with patient: 25 - 35 minutes
[2025-10-12] MEDS: BUMETANIDE INJ 0.25 MG/ML VIAL 4 ML 2 MG IVP (15:55)
[2025-10-12 20:19] LABS: Hematocrit 31.4 % (36.0-46.0); Hemoglobin 9.8 g/dL (12.0-16.0)
[2025-10-12] MEDS: MEGESTROL ACET 20 MG TABLET 40 MG PO (20:31)
[2025-10-12] MEDS: ATORVASTATIN CALCIUM 20 MG TABLET 40 MG PO (20:32)
[2025-10-12] MEDS: INSULIN DEGLUDEC 5 UNIT/0.05 ML (PER 5 UNITS) 18 UNIT SC (20:33)
[2025-10-12] MEDS: ACETAMINOPHEN 325 MG TABLET 650 MG PO (20:44)
[2025-10-13] VITALS (22 sets, daily range): BP systolic 92–153; BP diastolic 63–103; PULSE 70–103; RESP 15–20; TEMP 35.7–37; O2SAT 93–98; BMI 63.8
[2025-10-13 05:30] LABS: Basophils # (Auto) 0.1 Thou/mm3 (0.0-0.2); Basophils % (Auto) 1 % (0-2.5); Eosinophils # (Auto) 0.4 Thou/mm3 (0.0-0.5); Eosinophils % (Auto) 4 % (0-10); Hematocrit 29.6 % (36.0-46.0); Hemoglobin 9.4 g/dL (12.0-16.0); Immature Granulocytes Auto 0.05 Thou/mm3 (0.00-0.00); Lymphocytes # (Auto) 2.1 Thou/mm3 (1.0-4.8); Lymphocytes % (Auto) 19 % (10-50); Mean Corpuscular HGB Conc 31.8 g/dl (31.0-37.0); Mean Corpuscular Hemoglobin 26.4 pg (25.0-35.0); Mean Corpuscular Volume 83 fL (80-100); Monocytes # (Auto) 0.7 Thou/mm3 (0.0-0.8); Monocytes % (Auto) 6 % (0-12); Neutrophils # (Auto) 8.0 Thou/mm3 (1.8-7.7); Neutrophils % (Auto) 71 % (37-80); Nucleated Red Blood Cell # 0.00 Thou/mm3 (0.00-0.00); Nucleated Red Blood Cell % 0 /100 WBC (0); Platelet Count 249 Thou/mm3 (140-440); RDW Standard Deviation 44.8 fL (36.4-46.3); Red Blood Count 3.56 Miln/mm3 (4.00-5.20); White Blood Count 11.3 Thou/mm3 (3.6-11.0)
[2025-10-13 05:46] LABS: INR 1.0 (0.9-1.3); Partial Thromboplastin Time 27.8 Seconds (22.0-36.0); Prothrombin Time 10.9 Seconds (9.0-12.2)
[2025-10-13 06:16] LABS: Alanine Aminotransferase 10 U/L (10-49); Albumin, Serum 3.6 gm/dL (3.5-5.0); Albumin/Globulin Ratio 1.2 (1.2-2.2); Alkaline Phosphatase 87 U/L (46-116); Anion Gap 10 (7-16); Aspartate Amino Transferase 22 U/L (0-34); BUN/Creatinine Ratio 14 Ratio (12-20); Bilirubin,Total 1.3 mg/dL (0.3-1.2); Blood Urea Nitrogen 17 mg/dL (9-23); Calcium 8.5 mg/dL (8.3-10.6); Calcium (Corrected) 8.8 mg/dL (8.5-10.1); Carbon Dioxide 32.7 mMol/L (20.0-31.0); Chloride 99 mMol/L (98-107); Creatinine (Component) 1.2 mg/dL (0.6-1.3); Estimated Creatinine Clearance 75.3 mL/min (>60); Globulin 3.1 gm/dL (2.3-3.5); Glucose 218 mg/dL (74-106); Osmolality,Calculated 291 (275-295); Potassium 3.2 mMol/L (3.4-5.1); Sodium 142 mMol/L (136-145); Total Protein 6.7 gm/dL (5.7-8.2); eGFR 53 See Note
--- NOTE | 2025-10-13 08:17 | PD.IMCONS ---
HPI Data of Consult Requesting Physician: Ruma Ocampo MD Primary Care Provider: Jeni Rojas MD Consult Narrative History of present illness: This is a 54-year-old female with significant past medical history of diabetes, CHF, uterine fibroid, atrial fibrillation on Eliquis pt seenin the ER with vaginal bleeding and weakness Vitals at the time of admission are within normal limits. Labs at the time of admission are significant for hemoglobin 6.3, cc:: cc: Ruma Ocampo MD Meds Home Medications and Allergies Home Medications ?Medication ?Instructions ?Recorded ?Confirmed ?Type acetaminophen 325 mg tablet 650 mg PO Q6H PRN pain 10/11/25 10/11/25 History (Tylenol) albuterol sulfate 2.5 mg/3 mL 2.5 mg inhalation BID PRN 10/11/25 10/11/25 History (0.083 %) solution for nebulization shortness of breath or wheezing apixaban 2.5 mg tablet 2.5 mg PO BID 10/11/25 10/11/25 History ascorbic acid (vitamin C) 500 mg 500 mg PO DAILY 10/11/25 10/11/25 History capsule atorvastatin 40 mg tablet (Lipitor) 40 mg PO QPM 10/11/25 10/11/25 History bumetanide 2 mg tablet 2 mg PO QDAY 10/11/25 10/11/25 History ergocalciferol (vitamin D2) 1,250 1,250 mcg PO QWEEK 10/11/25 10/11/25 History mcg (50,000 unit) capsule (Vitamin D2) gabapentin 300 mg capsule 300 mg PO BID 10/11/25 10/11/25 History insulin aspart U-100 100 unit/mL 1 sliding scale dose subcut 10/11/25 10/11/25 History (3 mL) subcutaneous pen (Novolog USEASDIRECTD FlexPen U-100 Insulin aspart) insulin glargine 100 unit/mL (3 24 unit subcut .COMPLEX 10/11/25 10/11/25 History mL) subcutaneous pen (Lantus Solostar U-100 Insulin) magnesium 200 mg tablet 400 mg PO BID 10/11/25 10/11/25 History magnesium hydroxide 400 mg/5 mL 30 ml PO DAILY constipation 10/11/25 10/11/25 History oral suspension melatonin 3 mg capsule 6 mg PO HS PRN sleep 10/11/25 10/11/25 History metoprolol succinate 25 mg 25 mg PO DAILY 10/11/25 10/11/25 History tablet,extended release 24 hr (Toprol XL) multivitamin (Daily Multi-Vitamin 1 tab PO QDAY 10/11/25 10/11/25 History tablet) pantoprazole 40 mg granules 40 mg PO QDAY 10/11/25 10/11/25 History delayed-release for susp in packet (Protonix) Allergies Allergy/AdvReac Type Severity Reaction Status Date / Time Penicillins Allergy Verified 10/10/25 22:11 Exam Vital Signs Temp Pulse Resp BP Pulse Ox O2 Del Method O2 Flow Rate 98.1 F 89 17 100/73 97 Nasal Cannula 2 10/13/25 07:10 10/13/25 07:10 10/13/25 07:10 10/13/25 07:10 10/13/25 07:10 10/13/25 04:00 10/13/25 07:10 Routine HEENT Exam Head: Present normocephalic and atraumatic Eye: Present EOMI and PERRL ENT: Present mucous membranes moist Routine Neck Exam Neck: Present supple and trachea midline Routine Respiratory Exam Respiratory: Present chest non-tender, lungs clear, normal breath sounds and no resp distress Routine Cardiovascular Exam Cardiovascular: Present RRR Routine Abdominal Exam Abdominal: Present soft and normoactive bowel sounds Routine Extremities Exam Extremities: Present full ROM Routine Skin Exam Skin: Present intact, dry and warm Routine Neurological Exam Neurological: Present alert, oriented X3 and CN II-XII intact Routine Psychiatric Exam Psychiatric: Present normal affect and normal thought process Results Labs 10/13/25 04:25 10/13/25 04:25 Labs: Short CBC 10/12/25 10/13/25 Range/Units 19:43 04:25 WBC 11.3 H (3.6-11.0) Thou/mm3 Hgb 9.8 L D 9.4 L (12.0-16.0) g/dL Hct 31.4 L 29.6 L (36.0-46.0) % Plt Count 249 (140-440) Thou/mm3 BMP 10/13/25 04:25 Sodium 142 Potassium 3.2 L Chloride 99 Carbon Dioxide 32.7 H BUN 17 Creatinine 1.2 Glucose 218 H D Calcium 8.5 Cardiac Enzymes 10/12/25 Range/Units 04:15 Troponin I < 0.020 (0.0-0.045) ng/mL Liver Function 10/13/25 Range/Units 04:25 Total Bilirubin 1.3 H (0.3-1.2) mg/dL AST 22 (0-34) U/L ALT 10 (10-49) U/L Alkaline Phosphatase 87 (46-116) U/L Albumin 3.6 (3.5-5.0) gm/dL Assessment and Plan Assessment and plan (1) Post-menopausal bleeding: Status: Acute (2) Morbid obesity with BMI of 60.0-69.9, adult: Status: Acute (3) Atrial fibrillation: Status: Acute Additional Assessment & Plan Additional Plan: significant bleeding requiring blood transfusion discontinue eliquis echo shows normal EF
--- NOTE | 2025-10-13 11:03 | PD.GYNPROG ---
Documentation for date of: 10/13/25 CUT OFF SAW GRADER Subjective Subjective Interval history: This is a complicated patient with multiple comorbid conditions admitted with heavy vaginal bleeding and a hemoglobin of 6.3 from the emergency room 2 to 3 days ago. Patient has been bleeding on and off for 3 years and has had several trips to the ER and multiple blood transfusions. She is on her 6 unit of blood this admission. Patient continues to trickle blood. She is consented for a abdominal hysterectomy possible BSO today. She had a normal echocardiogram and was cleared by Dr. Roberts for anesthesia. Patient is consented for the procedure this morning. Her internal medicine team is aware. Patient is aware that due to her elevated BMI of 64 she has a significant risk of uterine cancer. If we find uterine cancer, she might have to be referred to a hospital with gynecological oncology services. This is considered a life-saving surgery at this point as the patient is on her 6 unit of blood and her hemoglobin this morning is 9.4. This morning the patient is pale but resting comfortably. She is on 3 L of O2 nasal cannula and has been on this. [facility] She is her own medical decision maker and is a full code. She has been n.p.o. since midnight Exam Vital Signs Temp Pulse Resp BP Pulse Ox O2 Del Method O2 Flow Rate 97.3 F 86 17 129/85 H 97 Nasal Cannula 2 10/13/25 09:40 10/13/25 09:40 10/13/25 09:40 10/13/25 09:40 10/13/25 08:00 10/13/25 08:00 10/13/25 08:00 Narrative Exam Patient is alert and orient x 3 pale in no apparent distress Routine Respiratory Exam Respiratory: Present lungs clear Routine Cardiovascular Exam Cardiovascular: Present RRR Routine Abdominal Exam Abdominal: Present soft Comments: Morbidly obese. She has Pfannenstiel scars and a vertical scar by her umbilicus where some type of hernia was repaired. Urinary Catheter Management Cath placed during this visit: no CUT OFF SAW GRADER - PN: Obj Data Labs 10/13/25 04:25 10/13/25 04:25 Labs: Laboratory Results - last 24 hr 10/10/25 10/12/25 10/12/25 22:32 04:15 19:43 WBC RBC Hgb 9.8 L D Hct 31.4 L MCV MCH MCHC RDW Std Deviation Plt Count Neut % (Auto) Lymph % (Auto) [place] % (Auto) Eos % (Auto) Baso % (Auto) Neut # (Auto) Lymph # (Auto) [place] # (Auto) Eos # (Auto) Baso # (Auto) Immature Gran # (Auto) Absolute Nucleated RBC Immature Gran % Nucleated RBC % PT INR APTT Sodium Potassium Chloride Carbon Dioxide Anion Gap BUN Creatinine Estim Creat Clear Calc eGFR BUN/Creatinine Ratio Glucose Calculated Osmolality Calcium Corrected Calcium Total Bilirubin AST ALT Alkaline Phosphatase Troponin I < 0.020 Total Protein Albumin Globulin Albumin/Globulin Ratio Blood Type O Positive Antibody Screen POSITIVE Antibody Identification Cold Antibody Crossmatch See Detail Blood Bank Wristband ID Yes 10/13/25 04:25 WBC 11.3 H RBC 3.56 L Hgb 9.4 L Hct 29.6 L MCV 83 MCH 26.4 MCHC 31.8 RDW Std Deviation 44.8 Plt Count 249 Neut % (Auto) 71 Lymph % (Auto) 19 [place] % (Auto) 6 Eos % (Auto) 4 Baso % (Auto) 1 Neut # (Auto) 8.0 H Lymph # (Auto) 2.1 [place] # (Auto) 0.7 Eos # (Auto) 0.4 Baso # (Auto) 0.1 Immature Gran # (Auto) 0.05 H Absolute Nucleated RBC 0.00 Immature Gran % 0 Nucleated RBC % 0 PT 10.9 INR 1.0 APTT 27.8 Sodium 142 Potassium 3.2 L Chloride 99 Carbon Dioxide 32.7 H Anion Gap 10 BUN 17 Creatinine 1.2 Estim Creat Clear Calc 75.3 eGFR 53 L BUN/Creatinine Ratio 14 Glucose 218 H D Calculated Osmolality 291 Calcium 8.5 Corrected Calcium 8.8 Total Bilirubin 1.3 H AST 22 ALT 10 Alkaline Phosphatase 87 Troponin I Total Protein 6.7 Albumin 3.6 Globulin 3.1 Albumin/Globulin Ratio 1.2 Blood Type Antibody Screen Antibody Identification Crossmatch Blood Bank Wristband ID CUT OFF SAW GRADER - A/P Assessment and plan (1) Post-menopausal bleeding: Problem details: Patient continues to bleed heavily. She is not maintaining her hemoglobin well. She presented in a hemoglobin of 6.3 and after 6 units of blood it is only at 9.4. Patient needs life-saving surgery in the form of a abdominal hysterectomy at this time. She was consented for the procedure. She understands to risk of bleeding, infection, blood transfusion, damage to bowel bladder blood vessels other organs prolonged hospital stay further surgery time but recur. Her internal medicine team is present at bedside and understand she is going to surgery. She was cleared by anesthesia. She has 3 more units of blood on hold. Patient also understands she has a significant risk of uterine cancer. If this is found in the surgical specimen she will have to be referred out to a gynecological oncologist. All questions were answered all consents were signed. Status: Acute (2) Morbid obesity with BMI of 60.0-69.9, adult: Status: Acute (3) Atrial fibrillation: Status: Acute Postoperative Procedures: Procedures Operation Date: 10/13/25 12:00 <No data on this case meets the specified criteria> Time Spent With Patient Time: Total time spent is greater than 50% in coordination of care (as documented) at patient's floor/unit and/or counseling patient: Time with patient: 25 - 35 minutes (A significant amount of time is been spent on this patient discussing the case with Dr. Roberts, Dr. Renee my co-surgeon, her nurse, and the primary IM team. Abdominal hysterectomy today.)
--- NOTE | 2025-10-13 11:48 | PC.SS ---
SS met with patient regarding her d/c plan. Pt is alert/oriented. Pt was admitted for Acute Blood Loss Anemia. Pt confirmed demographic and contact information is correct on facesheet. Pt is from [facility]. Pt transfers into wheelchair with assistance. Pt requires assistance with all ADLs. Pt named her son, Matt Cuevas medical decision maker if he is unable. Pt is currently on 2 liters of O2. Pt utilizes O2 at SNF. Patient's choice is to return to [facility] upon dc. SS spoke to Malaika from [facility] who states pt does not require insurance authorization to return. SS has contacted patient's son, Matt who is also requesting pt to return to [facility] upon dc. SS has called pt registration to update patient's facesheet with her son's correct phone#. D/C plan: Return to [facility] Next of Kin: Matt Cuevas, son, phone# [phone] PCP: Dr. Rojas Address: Correct on facesheet
--- NOTE | 2025-10-13 12:00 | ESPR_ITS ---
Documentation for date of: 10/13/25 Subjective Subjective Interval history: Patient was seen and examined at bedside. No acute events took place overnight. Patient denies fevers, headache, abdominal pain, dysuria, urinary frequency. Patient underwent hysterectomy with resection of the uterus and left fallopian tube and was transfused with 1 unit of packed red blood cells intraoperatively. Exam Vital Signs Temp Pulse Resp BP Pulse Ox O2 Del Method O2 Flow Rate 97.3 F 86 17 129/85 H 97 Nasal Cannula 2 10/13/25 09:40 10/13/25 09:40 10/13/25 09:40 10/13/25 09:40 10/13/25 08:00 10/13/25 08:00 10/13/25 08:00 Narrative Exam General: Obese woman. Awake and in no acute distress. Conversational and non- toxic appearing. Neurologic: No gross neurological deficit, and patient able to move all 4 extremities. HEENT: Normocephalic, atraumatic, mucous membranes moist. Pupils reactive to light. Heart: Regular rate and rhythm, normal S1 and S2, no murmurs. Lungs: Clear to auscultation bilaterally with no wheezing or crackles. Abdomen: Soft, nondistended, nontender. No guarding or rebound tenderness. Extremities: No edema. 2+ radial and dorsalis pedis pulses bilaterally. Skin: Warm. Dry. No rash or ecchymoses. Quality Assurance Project Manager: Difficult exam due to body habitus: Dried blood around the introitus. Minimal bleeding from vagina. Objective Labs 10/13/25 16:00 10/13/25 04:25 Labs: Laboratory Results - last 24 hr 10/10/25 10/12/25 10/12/25 22:32 04:15 19:43 WBC RBC Hgb 9.8 L D Hct 31.4 L MCV MCH MCHC RDW Std Deviation Plt Count Neut % (Auto) Lymph % (Auto) [place] % (Auto) Eos % (Auto) Baso % (Auto) Neut # (Auto) Lymph # (Auto) [place] # (Auto) Eos # (Auto) Baso # (Auto) Immature Gran # (Auto) Absolute Nucleated RBC Immature Gran % Nucleated RBC % PT INR APTT Sodium Potassium Chloride Carbon Dioxide Anion Gap BUN Creatinine Estim Creat Clear Calc eGFR BUN/Creatinine Ratio Glucose Calculated Osmolality Calcium Corrected Calcium Total Bilirubin AST ALT Alkaline Phosphatase Troponin I < 0.020 Total Protein Albumin Globulin Albumin/Globulin Ratio Blood Type O Positive Antibody Screen POSITIVE Antibody Identification Cold Antibody Crossmatch See Detail Blood Bank Wristband ID Yes 10/13/25 04:25 WBC 11.3 H RBC 3.56 L Hgb 9.4 L Hct 29.6 L MCV 83 MCH 26.4 MCHC 31.8 RDW Std Deviation 44.8 Plt Count 249 Neut % (Auto) 71 Lymph % (Auto) 19 [place] % (Auto) 6 Eos % (Auto) 4 Baso % (Auto) 1 Neut # (Auto) 8.0 H Lymph # (Auto) 2.1 [place] # (Auto) 0.7 Eos # (Auto) 0.4 Baso # (Auto) 0.1 Immature Gran # (Auto) 0.05 H Absolute Nucleated RBC 0.00 Immature Gran % 0 Nucleated RBC % 0 PT 10.9 INR 1.0 APTT 27.8 Sodium 142 Potassium 3.2 L Chloride 99 Carbon Dioxide 32.7 H Anion Gap 10 BUN 17 Creatinine 1.2 Estim Creat Clear Calc 75.3 eGFR 53 L BUN/Creatinine Ratio 14 Glucose 218 H D Calculated Osmolality 291 Calcium 8.5 Corrected Calcium 8.8 Total Bilirubin 1.3 H AST 22 ALT 10 Alkaline Phosphatase 87 Troponin I Total Protein 6.7 Albumin 3.6 Globulin 3.1 Albumin/Globulin Ratio 1.2 Blood Type Antibody Screen Antibody Identification Crossmatch Blood Bank Wristband ID Quality Measures Quality Measures VTE prophylaxis Assessment & Plan Assessment Current Active Medications: Generic Name Dose Route Start Last Admin Trade Name Freq PRN Reason Stop Dose Admin Acetaminophen 650 mg 10/12/25 20:42 Acetaminophen 325 Mg Tablet PO 11/10/25 05:43 Q6H PRN PAIN OR Fever >100.4 Albuterol/Ipratropium 3 ml 10/11/25 07:49 Albuterol/Ipratropium (Duoneb) Rt Chely 3 Ml Nebu INH 11/10/25 07:48 Q2HR PRN SHORTNESS OF BREATH OR WHEEZE Atorvastatin Calcium 40 mg 10/11/25 21:00 10/12/25 20:32 Atorvastatin Calcium 20 Mg Tablet PO 11/10/25 20:59 40 mg HS FRANK Administration Bumetanide 2 mg 10/12/25 09:00 10/12/25 08:24 Bumetanide 0.5 Mg Tablet PO 11/11/25 08:59 2 mg QDAY FRANK Administration Dextrose 25 ml 10/11/25 16:32 Dextrose 50%-Water Inj 50 Ml Syringe IV 11/10/25 16:31 Q15MIN PRN BG 50-70 responsive npo pt Dextrose 50 ml 10/11/25 16:32 Dextrose 50%-Water Inj 50 Ml Syringe IV 11/10/25 16:31 Q15MIN PRN BG <50 OR BG <70 & pt unresponsive Gabapentin 300 mg 10/11/25 21:00 10/12/25 20:33 Gabapentin 300 Mg Capsule PO 11/10/25 20:59 300 mg BID FRANK Administration Glucagon 1 mg 10/11/25 16:32 Glucagon Inj 1 Mg Vial IM Q15MIN PRN BG <70, and no IV access Meropenem 1,000 mg/ Sodium 50 mls @ 100 mls/hr 10/13/25 14:00 Chloride IV 10/20/25 13:59 Q8HR [facility] Insulin Degludec 18 unit 10/11/25 21:00 10/12/25 20:33 Insulin Degludec 5 Unit/0.05 Ml (Per 5 Units) SC 11/10/25 20:59 18 unit QDAY@2100 FRANK Administration Insulin Human Lispro 0 unit 10/11/25 17:00 10/13/25 07:44 Insulin Lispro (Admelog) 1 Unit/0.01 Ml Unit SC 11/10/25 16:59 Not Given AC [facility] Protocol Megestrol Acetate 40 mg 10/12/25 15:00 10/12/25 20:32 Megestrol Acet 20 Mg Tablet PO 11/11/25 14:59 Not Given BID [facility] Melatonin 6 mg 10/11/25 22:01 Melatonin 3 Mg Tablet PO 11/10/25 22:00 HS PRN sleep Metoprolol Succinate 25 mg 10/11/25 09:00 10/12/25 08:25 Metoprolol Succinate Xl 25 Mg Tabcr PO 11/10/25 08:59 25 mg QDAY FRANK Administration Plan 55-year-old female past medical history of diabetes, CHF, anoxic brain injury, uterine fibroid, and A-fib presented to the ED in the late evening of 10/10/2025 with chief complaint of vaginal bleeding. She was found to have a hemoglobin of 6.3. 2 units of blood were ordered. Upon admission she was receiving her second unit. Patient was admitted for acute blood loss anemia secondary to suspected bleeding from uterine fibroids. #Acute normocytic anemia secondary to postmenopausal bleeding #Bleeding uterine fibroid #S/P hysterectomy 10/13/2025 * Hemoglobin 6.3 hematocrit 21.1 on arrival * Patient presented with 3-day history of vaginal bleeding with clots and associated dizziness * She mentioned that her normal menstrual cycles stopped at age 43 and described them as restarting this year with normal cycles using 5 pads daily for 5 days at a time. She does not recall her last menstrual period. * Patient had no active bleeding from the vagina on exam * Patient has had multiple previous visits for vaginal bleeding with associated clots * She was referred to outpatient [employer] [facility] but did not follow-up * after second unit of pRBC transfusion, Hgb 7.9 * US Pelvis showed enlarged uterus 13.4 cm, endometrial stripe 0.5 cm, no uterine mass or intrauterine gestation. * CA-125 Ag 74 (H), CEA 1.5 (WNL) * patient s/p 6u of pRBC pre-operatively and an additional unit during her oepration * Coagulation factor panel WNL Plan: * [employer] Dr Cates consulted; appreciate recommendations * s/p successful hysterectomy with resection of the uterus and left fallopian tube * Started megestrol acetate PO 40mg bid * Avoiding chemical anticoagulation #A-fib * Per chart review patient has a history of A-fib and is on Eliquis * EKG showed sinus rhythm with frequent PVCs, QTc 503, rate 97. Plan: * Holding for now in the setting of vaginal bleed #History of anoxic brain injury * Per chart review * Patient has lived at [facility] for [facility] * Precipitation event for anoxic brain injury unknown Plan: * No direct intervention at this time #Asymptomatic Pyuria * Urinalysis showed 14 WBCs, 1+ bacteria, leukocyte esterase positive Plan: * Meropenem IV 1g Q8h started 10/13 and going on until 10/14 #Diabetes * Per chart review * Glucose 218 this AM * HgbA1c 6.6 Plan: * Degludec 12u while patient is NPO (bowel rest) post surgery; half her regular night time dose 24u * insulin sliding scale Q6h * bedside glc checks Q6h #History of CHF? * Per chart review * Patient does not appear to be in acute CHF exacerbation on exam, negative for crackles or pitting edema * No echo on file * Unclear if patient taking diuretics Plan: * Bumex PO 2mg Qday * metoprolol PO 25mg Qday * Atorvastatin PO 40mg HS * No direct intervention at this time Hospital Maintenance: DVT ppx: SCDs, avoiding chemical prophylaxis Diet: diet regular IV lines: Peripheral IVs Hurd?: PureWick Code status: Full code Dispo: Telemetry monitoring floor, transfusing second unit of blood on admission, follow-up posttransfusion H&H, gynecology consulted, pelvic ultrasound pending read. This case was discussed with my attending physician, Dr. Olivares, and senior resident, Dr Ness. Even though this this note was carefully revised there may still be minor errors in tire technician due to voice recognition software. Myrna Alas DO PGY I Attending Provider Attestation/Addendum I reviewed labs, imaging, EKG, home medications and prior available records. Face to face evaluation was performed by me. I have personally examined the patient and discussed assessment and plan with the IM team. I reviewed the resident note and agree with the plan with exceptions as below. Acute blood loss anemia Vaginal bleed Uterine fibroids versus mass Generalized weakness Klebsiella UTI Atrial fibrillation on Eliquis Insulin-dependent diabetes mellitus Status post PRBC transfusion H&H is stable posttransfusion Consulted [facility]F [facility]OMETRY SERVICE: Recommended subcervical hysterectomy versus D&C Held Eliquis Gave IV meropenem. Noted allergy to penicillin Continue insulin degludec plus sliding scale insulin and monitor fingersticks She is a resident at [facility] transitional Ordered PT
--- NOTE | 2025-10-13 13:49 | SUR.PHASEI ---
pt received from OR in recovery bay 1. pt obtunded, breathing unlabored on oxymask 10l, oral and nasal airway in place. v/s stable. pt dressing to lower abd cdi, abd binder in place. report report received from Dr. Roberts and Telma RODRIGUES.
--- NOTE | 2025-10-13 14:18 | PD.GYNPROC ---
Operative Note - SPONGE DIVER Procedure Date of procedure: 10/13/25 Procedure Performed: Total abdominal hysterectomy, left salpingectomy Indication: The patient is a 55-year-old multiparous patient with a history of C-sections in the past. She has multiple comorbid conditions including anoxic brain injury, CHF, COPD, chronic kidney disease level 3, arthritis, type 2 diabetes, a history of a CVA in the past and A-fib. Patient is largely bedbound and has a foot drop. Patient is morbidly obese with a BMI of 64 and resides in a convalescent hospital. She is a full code and consents for her own medical procedures. She is had postmenopausal bleeding almost continuously for the last 3 years and has been seen in the ER for multiple blood transfusions. Most recently, she was admitted 2 days ago with a hemoglobin of 6. She has received 6 units of blood this admission and her hemoglobin is only at 9.4. She continues to soak diapers daily with bleeding. She was consented for an emergent abdominal hysterectomy. She was cleared by anesthesia, and had a normal echocardiogram prior to going to the operating room. Of note she is at high risk for possible endometrial cancer. Fortunately, she is so high risk to placed under general anesthesia that we will proceed with an abdominal hysterectomy without an endometrial biopsy. Pre-Op diagnosis: 1. Morbid obesity 2. Postmenopausal bleeding x 3 years 3. Severe anemia, requiring multiple blood transfusions. 4. Multiple comorbid medical conditions 5. Previous sections Post-Op diagnosis: Same Anesthesia type: General Procedure description: After obtaining informed consent, including the possibility that patient could have an undiagnosed uterine cancer, the patient was brought back to the operating room placed under general anesthesia. A speculum exam was performed prior to prepping the patient her cervix was small and difficult to visualize. It felt grossly normal with no gross signs of adenocarcinoma present. She was then prepped and draped in the dorsal supine position in a normal sterile fashion. A Hurd catheter was inserted into the patient's bladder. The patient was given 900 mg of IV clindamycin and 160 mg of IV gentamicin as she stated she had a anaphylactic reaction to penicillin in the past. Her pannus was taped. A Pfannenstiel skin incision was made with a scalpel through her prior scar and carried down to the underlying fascia. The fascia was incised in the midline and the fascial incision extended laterally using Abdullahi scissors. The superior aspect of the fascia was grasped with Herman clamps and the underlying rectus muscles dissected off using blunt and sharp dissection. This was repeated in the inferior aspect of the incision. A large hernia sac was encountered and the sac bluntly entered with the surgeon's fingers. This was extended superiorly and inferiorly with good visualization of the bladder. The bowel was packed away with moist laparotomy sponges. A double-tooth tenaculum was placed on the fundus of the uterus and used for retraction. The large bowel was found to be adhesed to the posterior portion of the uterus almost up to the fundus. Fortunately, many of these adhesions were filmy. These were carefully taken down using gentle traction and Metzenbaum scissors. The anterior portion of the uterus was noted to be free of adhesions. Once the adhesions were cleared away, the patient's right adnexa was evaluated. Her ovary and fallopian tube were found to be adhesed densely to large bowel. The left ovary and fallopian tube were noted to be free. A LigaSure bipolar electrocautery device was used to serially clamp, cauterize and transect the right utero-ovarian and round ligament. The uterine arteries were skeletonized on the right side. A Panchito clamp was placed across the uterine arteries on the right side. Attention was turned the patient's left side, where the Ligasure was used to clamp,cauterize and transect the left utero-ovarian and round ligament. Her left fallopian tube was removed with the LigaSure. Her left ovary was left in situ. The serosa of the lower uterine segment was then picked up with pickups and dissected down using Metzenbaums in order to create a bladder flap. Care was taken to avoid the bladder. The bladder was then easily pushed down using a moistened sponge stick. The cervix was exposed. The uterine arteries were then clamped cauterized and transected bilaterally using LigaSure. The same procedure was repeated with the cardinal and uterosacral ligaments. Taty scissors was used to transect the uterus at the level of the ectocervical os. The uterus including a large portion of the cervix was handed off the operating field. The uterosacral and cardinal ligaments were closed on each corner using [id number] sutures of 0 Vicryl. The remainder the cuff was closed using interrupted [id number] sutures of 0 Vicryl. Copious irrigation was then carried out and the cuff noted to be intact. Snow hemostatic powder was placed to obtain excellent hemostasis. All sutures retracting the cuff were then cut. And all instrumentation was removed from the patient's abdomen. The laparotomy sponge count was found to be correct prior to closing. The rectus muscles could not be reapproximated. The fascia was closed using 0 PDS in a running fashion. The subcutaneous tissue was closed with 2-0 plain and the skin closed with 3-0 Vicryl. Up Prineo dressing and pressure bandage was placed across the incision. The patient tolerated the procedure well, sponge, lap, needle, and instrument counts were correct x 2. The patient went to the recovery area awake and in stable condition. Pathology was left fallopian tube, uterus and large portion of cervix. Fluids: crystalloid and blood (1 unit packed red blood cells intraoperatively) Fluid amount (mL): 500 Urine output (mL): 50 Specimen: uterus and left tube Implants: None Estimated blood loss (ml): 200 Findings: Enlarged uterus about 10 weeks size. Normal-appearing cervix. Right ovary and fallopian tube could not be evaluated secondary to a dense adhesions of large bowel to the adnexal area. Normal-appearing left ovary and fallopian tube. Multiple largely filmy adhesions of the large bowel to the posterior serosal surface of the uterus. Lower uterine segment and bladder are largely free of adhesions. large ventral hernia. Complications: none Surgical staff Operation Date: 10/13/25 12:00 Case Staff Anesthesiologist: Pradeep Roberts Assisting Surgeon: Inder Renee Diagnosis Discharge Diagnosis (1) Post-menopausal bleeding: Status: Acute Problem details: Patient continues to bleed heavily. She is not maintaining her hemoglobin well. She presented in a hemoglobin of 6.3 and after 6 units of blood it is only at 9.4. Patient needs life-saving surgery in the form of a abdominal hysterectomy at this time. She was consented for the procedure. She understands to risk of bleeding, infection, blood transfusion, damage to bowel bladder blood vessels other organs prolonged hospital stay further surgery time but recur. Her internal medicine team is present at bedside and understand she is going to surgery. She was cleared by anesthesia. She has 3 more units of blood on hold. Patient also understands she has a significant risk of uterine cancer. If this is found in the surgical specimen she will have to be referred out to a gynecological oncologist. All questions were answered all consents were signed. (2) Morbid obesity with BMI of 60.0-69.9, adult: Status: Acute (3) Anemia: Status: Acute (4) History of uterine fibroid: Status: Acute Problem List Completed Was Problem List Reviewed/Reconciled?: Yes (3) Anemia Qualifiers: Anemia type: iron deficiency Iron deficiency anemia type: chronic blood loss Qualified Code(s): D50.0 - Iron deficiency anemia secondary to blood loss (chronic)
--- NOTE | 2025-10-13 14:53 | SUR.PHASEI ---
pt asleep but responds to voice, breathing unlabored on nc 3l. v/s stable. pt dressing to lower abd cdi, abd binder in place, peripad scant bleeding noted. castro catheter in place. report called to Kim RODRIGUES.
[2025-10-13] MEDS: MEROPENEM INJ 1,000 MG in SODIUM CHLORIDE 0.9% (Popper) 50 ML 100 MG IV (15:20)
[2025-10-13 16:28] LABS: Hematocrit 35.7 % (36.0-46.0); Hemoglobin 11.5 g/dL (12.0-16.0)
[2025-10-13 17:03] LABS: Fibrinogen 637 mg/dL (175-375)
[2025-10-13] MEDS: Magnesium Sulfate 4 GM Ivpb 4 GM/50 ML BAG IV (20:21)
[2025-10-13] MEDS: ATORVASTATIN CALCIUM 20 MG TABLET 40 MG PO (20:21)
[2025-10-13] MEDS: GABAPENTIN 300 MG CAPSULE PO (20:22)
[2025-10-13] MEDS: INSULIN DEGLUDEC 5 UNIT/0.05 ML (PER 5 UNITS) 12 UNIT SC (20:22)
[2025-10-13] MEDS: MEGESTROL ACET 20 MG TABLET 40 MG PO (20:22)
[2025-10-13 21:05] LABS: Basophils # (Auto) 0.0 Thou/mm3 (0.0-0.2); Basophils % (Auto) 0 % (0-2.5); Eosinophils # (Auto) 0.0 Thou/mm3 (0.0-0.5); Eosinophils % (Auto) 0 % (0-10); Hematocrit 35.6 % (36.0-46.0); Hemoglobin 11.5 g/dL (12.0-16.0); Immature Granulocytes Auto 0.07 Thou/mm3 (0.00-0.00); Lymphocytes # (Auto) 0.9 Thou/mm3 (1.0-4.8); Lymphocytes % (Auto) 5 % (10-50); Mean Corpuscular HGB Conc 32.3 g/dl (31.0-37.0); Mean Corpuscular Hemoglobin 26.6 pg (25.0-35.0); Mean Corpuscular Volume 82 fL (80-100); Monocytes # (Auto) 0.2 Thou/mm3 (0.0-0.8); Monocytes % (Auto) 1 % (0-12); Neutrophils # (Auto) 14.9 Thou/mm3 (1.8-7.7); Neutrophils % (Auto) 93 % (37-80); Nucleated Red Blood Cell # 0.00 Thou/mm3 (0.00-0.00); Nucleated Red Blood Cell % 0 /100 WBC (0); Platelet Count 280 Thou/mm3 (140-440); RDW Standard Deviation 42.5 fL (36.4-46.3); Red Blood Count 4.32 Miln/mm3 (4.00-5.20); White Blood Count 16.0 Thou/mm3 (3.6-11.0)
[2025-10-13 21:28] LABS: Fibrinogen 584 mg/dL (175-375)
--- NOTE | 2025-10-13 21:43 | PD.EVENT ---
Documentation for date of: 10/13/25 Event Note Event Note: I rounded on the patient at approximately 2000 tonight. She is postop day 0 status post total abdominal hysterectomy with left salpingectomy. The patient's daughter, Aster is at bedside. Patient is resting comfortably in bed denying any pain. She states she is quite hungry and upset that I have only given her ice chips. She states she has been passing flatus already. I did explain to the patient and her daughter that there was a lot of adhesions in her pelvis I would prefer she have some sips of clears tonight and if is passing good flatus tomorrow we can advance her diet. Patient seems okay with this plan. I did explain our intraoperative findings. Patient has not received her FFP and will get this now. There is still about 4 units of blood on hold. The patient's vital signs are stable. She did receive 1 unit of packed red blood cells during surgery and 1 immediately after. The plan will be to check another CBC in the morning and advance diet as tolerated. Overall she is doing quite well for being postop day 0 and only having surgery approximately 6 hours ago. All questions were answered.
[2025-10-13] MEDS: INSULIN LISPRO (AdmeLOG) 1 UNIT/0.01 ML UNIT SC (23:54)
[2025-10-14] VITALS (15 sets, daily range): BP systolic 102–138; BP diastolic 62–89; PULSE 62–100; RESP 16–27; TEMP 36.1–36.8; O2SAT 96–99
[2025-10-14 04:47] LABS: Basophils # (Auto) 0.0 Thou/mm3 (0.0-0.2); Basophils % (Auto) 0 % (0-2.5); Eosinophils # (Auto) 0.0 Thou/mm3 (0.0-0.5); Eosinophils % (Auto) 0 % (0-10); Hematocrit 33.0 % (36.0-46.0); Hemoglobin 10.7 g/dL (12.0-16.0); Immature Granulocytes Auto 0.06 Thou/mm3 (0.00-0.00); Lymphocytes # (Auto) 1.0 Thou/mm3 (1.0-4.8); Lymphocytes % (Auto) 7 % (10-50); Mean Corpuscular HGB Conc 32.4 g/dl (31.0-37.0); Mean Corpuscular Hemoglobin 27.0 pg (25.0-35.0); Mean Corpuscular Volume 83 fL (80-100); Monocytes # (Auto) 0.6 Thou/mm3 (0.0-0.8); Monocytes % (Auto) 4 % (0-12); Neutrophils # (Auto) 12.6 Thou/mm3 (1.8-7.7); Neutrophils % (Auto) 88 % (37-80); Nucleated Red Blood Cell # 0.00 Thou/mm3 (0.00-0.00); Nucleated Red Blood Cell % 0 /100 WBC (0); Platelet Count 288 Thou/mm3 (140-440); RDW Standard Deviation 44.5 fL (36.4-46.3); Red Blood Count 3.97 Miln/mm3 (4.00-5.20); White Blood Count 14.3 Thou/mm3 (3.6-11.0)
[2025-10-14 05:02] LABS: INR 1.0 (0.9-1.3); Partial Thromboplastin Time 28.1 Seconds (22.0-36.0); Prothrombin Time 10.7 Seconds (9.0-12.2)
[2025-10-14] MEDS: INSULIN LISPRO (AdmeLOG) 1 UNIT/0.01 ML UNIT SC ×4 (05:45→20:39)
[2025-10-14] MEDS: DOCUSATE SOD 100 MG CAPSULE PO (08:22)
[2025-10-14] MEDS: METOPROLOL SUCCINATE XL 25 MG TABCR PO (08:23)
[2025-10-14] MEDS: BUMETANIDE 0.5 MG TABLET 2 MG PO (08:23)
[2025-10-14] MEDS: GABAPENTIN 300 MG CAPSULE PO ×2 (08:23→20:37)
[2025-10-14] MEDS: ENOXAPARIN SOD INJ 40 MG/0.4 ML SYRINGE SC (08:24)
[2025-10-14] MEDS: ACETAMINOPHEN IVPB 1,000 MG/100 ML VIAL 250 MG IV ×3 (08:31→20:41)
[2025-10-14 08:44] LABS: Alanine Aminotransferase 31 U/L (10-49); Albumin, Serum 3.9 gm/dL (3.5-5.0); Albumin/Globulin Ratio 1.2 (1.2-2.2); Alkaline Phosphatase 141 U/L (46-116); Anion Gap 11 (7-16); Aspartate Amino Transferase 43 U/L (0-34); BUN/Creatinine Ratio 15 Ratio (12-20); Bilirubin,Total 0.9 mg/dL (0.3-1.2); Blood Urea Nitrogen 15 mg/dL (9-23); Calcium 8.8 mg/dL (8.3-10.6); Calcium (Corrected) 8.9 mg/dL (8.5-10.1); Carbon Dioxide 27.4 mMol/L (20.0-31.0); Chloride 101 mMol/L (98-107); Creatinine (Component) 1.0 mg/dL (0.6-1.3); Estimated Creatinine Clearance 90.3 mL/min (>60); Globulin 3.3 gm/dL (2.3-3.5); Glucose 298 mg/dL (74-106); Magnesium 2.2 mg/dL (1.6-2.6); Osmolality,Calculated 289 (275-295); Phosphorous 2.8 mg/dL (2.4-5.1); Potassium 4.3 mMol/L (3.4-5.1); Sodium 139 mMol/L (136-145); Total Protein 7.2 gm/dL (5.7-8.2); eGFR > 60 See Note
--- NOTE | 2025-10-14 09:14 | PC.SS ---
Follow up note: DATA MANAGEMENT SPECIALIST consulting. Pain control. Pt will return home upon dc.
--- NOTE | 2025-10-14 13:03 | PD.GYNPROG ---
Documentation for date of: 10/14/25 PHP MYSQL WEB DEVELOPER Subjective Subjective Interval history: Patient doing well this morning. Pain is adequately controlled on the current regimen. No incisional complaints, no chest pain, shortness of breath, breathing difficulties. Ambulating, tolerating p.o., Adequate UOP Exam Vital Signs Temp Pulse Resp BP Pulse Ox O2 Del Method O2 Flow Rate 98.1 F 92 20 115/79 96 Nasal Cannula 2 10/14/25 12:00 10/14/25 12:00 10/14/25 12:00 10/14/25 12:00 10/14/25 12:00 10/14/25 12:00 10/14/25 08:16 Constitutional Constitutional: no acute distress Routine HEENT Exam Head: Present normocephalic and atraumatic Eye: Present EOMI and PERRL ENT: Present mucous membranes moist Routine Neck Exam Neck: Present supple and trachea midline Routine Respiratory Exam Respiratory: Present chest non-tender, lungs clear, normal breath sounds and no resp distress Routine Cardiovascular Exam Cardiovascular: Present RRR Routine Abdominal Exam Abdominal: Present soft and normoactive bowel sounds Routine Extremities Exam Extremities: Present full ROM Routine Skin Exam Skin: Present intact and dry Routine Neurological Exam Neurological: Present alert, oriented X3 and CN II-XII intact Routine Psychiatric Exam Psychiatric: Present normal affect and normal thought process Urinary Catheter Management Cath placed during this visit: no PHP MYSQL WEB DEVELOPER - PN: Obj Data Labs 10/14/25 04:10 10/14/25 04:10 Labs: Laboratory Results - last 24 hr 10/10/25 10/13/25 10/13/25 22:32 15:58 16:00 WBC RBC Hgb 11.5 L D Hct 35.7 L MCV MCH MCHC RDW Std Deviation Plt Count Neut % (Auto) Lymph % (Auto) [place] % (Auto) Eos % (Auto) Baso % (Auto) Neut # (Auto) Lymph # (Auto) [place] # (Auto) Eos # (Auto) Baso # (Auto) Immature Gran # (Auto) Absolute Nucleated RBC Immature Gran % Nucleated RBC % PT INR APTT Fibrinogen 637 H* Sodium Potassium Chloride Carbon Dioxide Anion Gap BUN Creatinine Estim Creat Clear Calc eGFR BUN/Creatinine Ratio Glucose Calculated Osmolality Calcium Corrected Calcium Phosphorus Magnesium Total Bilirubin AST ALT Alkaline Phosphatase Total Protein Albumin Globulin Albumin/Globulin Ratio Blood Type O Positive Antibody Screen POSITIVE Antibody Identification Cold Antibody Crossmatch See Detail Blood Bank Wristband ID Yes Blood Bank Comment FFP Ready 10/13/25 10/14/25 10/14/25 20:40 04:10 05:00 WBC 16.0 H D 14.3 H RBC 4.32 3.97 L Hgb 11.5 L 10.7 L Hct 35.6 L 33.0 L MCV 82 83 MCH 26.6 27.0 MCHC 32.3 32.4 RDW Std Deviation 42.5 44.5 Plt Count 280 D 288 Neut % (Auto) 93 H 88 H Lymph % (Auto) 5 L 7 L [place] % (Auto) 1 4 Eos % (Auto) 0 0 Baso % (Auto) 0 0 Neut # (Auto) 14.9 H 12.6 H Lymph # (Auto) 0.9 L 1.0 [place] # (Auto) 0.2 0.6 Eos # (Auto) 0.0 0.0 Baso # (Auto) 0.0 0.0 Immature Gran # (Auto) 0.07 H 0.06 H Absolute Nucleated RBC 0.00 0.00 Immature Gran % 0 0 Nucleated RBC % 0 0 PT 10.7 INR 1.0 APTT 28.1 Fibrinogen 584 H Sodium 139 Potassium 4.3 D Chloride 101 Carbon Dioxide 27.4 Anion Gap 11 BUN 15 Creatinine 1.0 Estim Creat Clear Calc 90.3 eGFR > 60 BUN/Creatinine Ratio 15 Glucose 298 H D Calculated Osmolality 289 Calcium 8.8 Corrected Calcium 8.9 Phosphorus 2.8 Magnesium 2.2 Total Bilirubin 0.9 AST 43 H ALT 31 Alkaline Phosphatase 141 H D Total Protein 7.2 Albumin 3.9 Globulin 3.3 Albumin/Globulin Ratio 1.2 Blood Type O Positive Antibody Screen POSITIVE Antibody Identification Cold Antibody Crossmatch Blood Bank Wristband ID Yes Blood Bank Comment FFP Ready PHP MYSQL WEB DEVELOPER - A/P Assessment and plan (1) Post-menopausal bleeding: Status: Acute (2) Morbid obesity with BMI of 60.0-69.9, adult: Status: Acute (3) Anemia: Status: Acute (4) History of uterine fibroid: Status: Acute (5) S/P total abdominal hysterectomy: Status: Acute Assessment and plan: POD# 1 status post total abdominal hysterectomy Plan: Hemoglobin steady at 10.2, will hold any further blood transfusion for now pending a.m. labs tomorrow Pain management: As needed narcotics, NSAIDs, acetaminophen Adjust regimen as needed GI: Continue diet advancement Encourage ambulation : Hurd to be removed today Monitor output Wound/Incision: Top dressing removed, patient may shower as needed Mobility: Ambulate with assistance ? PT/OT consult if needed DVT Prophylaxis: Sequential compression devices (SCDs) Pharmacologic prophylaxis (enoxaparin 40 mg SQ daily) Continue until ambulating independently or per protocol Discharge Planning: Estimated discharge: POD# 2-3 Instructions to include: wound care, activity, return precautions, follow-up in 1?2 weeks Postoperative Procedures: Procedures Operation Date: 10/13/25 12:00 Actual Procedure Side Surgeon p Abdominal Hysterectomy Monie C[facility] ([facility]), Time Spent With Patient Time: Total time spent is greater than 50% in coordination of care (as documented) at patient's floor/unit and/or counseling patient: Time with patient: less than 15 minutes
--- NOTE | 2025-10-14 15:22 | ESPR_ITS ---
Documentation for date of: 10/14/25 Subjective - Hospitalist Subjective Interval history: Patient is status post total hysterectomy and left salpingectomy H&H is currently stable POMOLOGY TEACHER recommended careful advancing of diet given the adhesions reported. Clear liquid diet at lunch Patient reported improvement in her abdominal pain. No nausea or vomiting. No difficulty breathing or chest pain. No worsening bleeding Review of Systems Review of Systems Narrative Review of Systems: 12 point of system reviewed. All negative except as mentioned in the HPI Exam Vital Signs Temp Pulse Resp BP Pulse Ox O2 Del Method O2 Flow Rate 98.1 F 100 20 115/79 96 Nasal Cannula 2 10/14/25 12:00 10/14/25 15:17 10/14/25 12:00 10/14/25 12:00 10/14/25 12:00 10/14/25 12:00 10/14/25 08:16 Narrative General: Obese woman. Awake and in no acute distress. Conversational and non- toxic appearing. Neurologic: No gross neurological deficit, and patient able to move all 4 extremities. HEENT: Normocephalic, atraumatic, mucous membranes moist. Pupils reactive to light. Heart: Regular rate and rhythm, normal S1 and S2, no murmurs. Lungs: Clear to auscultation bilaterally with no wheezing or crackles. Abdomen: Soft, nondistended. Tenderness to palpation around the surgical site which appears intact. Abdominal binder in place. Extremities: No edema. 2+ radial and dorsalis pedis pulses bilaterally. Skin: Warm. Dry. No rash or ecchymoses. Objective - Hospitalist Labs Diagram: 10/14/25 04:10 10/14/25 04:10 Labs: Laboratory Results - last 24 hr 10/10/25 10/13/25 10/13/25 22:32 15:58 16:00 WBC RBC Hgb 11.5 L D Hct 35.7 L MCV MCH MCHC RDW Std Deviation Plt Count Neut % (Auto) Lymph % (Auto) [place] % (Auto) Eos % (Auto) Baso % (Auto) Neut # (Auto) Lymph # (Auto) [place] # (Auto) Eos # (Auto) Baso # (Auto) Immature Gran # (Auto) Absolute Nucleated RBC Immature Gran % Nucleated RBC % PT INR APTT Fibrinogen 637 H* Sodium Potassium Chloride Carbon Dioxide Anion Gap BUN Creatinine Estim Creat Clear Calc eGFR BUN/Creatinine Ratio Glucose Calculated Osmolality Calcium Corrected Calcium Phosphorus Magnesium Total Bilirubin AST ALT Alkaline Phosphatase Total Protein Albumin Globulin Albumin/Globulin Ratio Blood Type O Positive Antibody Screen POSITIVE Antibody Identification Cold Antibody Crossmatch See Detail Blood Bank Wristband ID Yes Blood Bank Comment FFP Ready 10/13/25 10/14/25 10/14/25 20:40 04:10 05:00 WBC 16.0 H D 14.3 H RBC 4.32 3.97 L Hgb 11.5 L 10.7 L Hct 35.6 L 33.0 L MCV 82 83 MCH 26.6 27.0 MCHC 32.3 32.4 RDW Std Deviation 42.5 44.5 Plt Count 280 D 288 Neut % (Auto) 93 H 88 H Lymph % (Auto) 5 L 7 L [place] % (Auto) 1 4 Eos % (Auto) 0 0 Baso % (Auto) 0 0 Neut # (Auto) 14.9 H 12.6 H Lymph # (Auto) 0.9 L 1.0 [place] # (Auto) 0.2 0.6 Eos # (Auto) 0.0 0.0 Baso # (Auto) 0.0 0.0 Immature Gran # (Auto) 0.07 H 0.06 H Absolute Nucleated RBC 0.00 0.00 Immature Gran % 0 0 Nucleated RBC % 0 0 PT 10.7 INR 1.0 APTT 28.1 Fibrinogen 584 H Sodium 139 Potassium 4.3 D Chloride 101 Carbon Dioxide 27.4 Anion Gap 11 BUN 15 Creatinine 1.0 Estim Creat Clear Calc 90.3 eGFR > 60 BUN/Creatinine Ratio 15 Glucose 298 H D Calculated Osmolality 289 Calcium 8.8 Corrected Calcium 8.9 Phosphorus 2.8 Magnesium 2.2 Total Bilirubin 0.9 AST 43 H ALT 31 Alkaline Phosphatase 141 H D Total Protein 7.2 Albumin 3.9 Globulin 3.3 Albumin/Globulin Ratio 1.2 Blood Type O Positive Antibody Screen POSITIVE Antibody Identification Cold Antibody Crossmatch Blood Bank Wristband ID Yes Blood Bank Comment FFP Ready Assessment & Plan Patient Synopsis 55-year-old female past medical history of diabetes, CHF, anoxic brain injury, uterine fibroid, and A-fib presented to the ED in the late evening of 10/10/2025 with chief complaint of vaginal bleeding. She was found to have a hemoglobin of 6.3. 2 units of blood were ordered. Upon admission she was receiving her second unit. Patient was admitted for acute blood loss anemia secondary to suspected bleeding from uterine fibroids. #Acute normocytic anemia secondary to postmenopausal bleeding #Bleeding uterine fibroid #S/P hysterectomy 10/13/2025 * Hemoglobin 6.3 hematocrit 21.1 on arrival * Patient presented with 3-day history of vaginal bleeding with clots and associated dizziness * She mentioned that her normal menstrual cycles stopped at age 43 and described them as restarting this year with normal cycles using 5 pads daily for 5 days at a time. She does not recall her last menstrual period. * Patient had no active bleeding from the vagina on exam * Patient has had multiple previous visits for vaginal bleeding with associated clots * She was referred to outpatient MANAGER HARDWARE but did not follow-up * after second unit of pRBC transfusion, Hgb 7.9 * US Pelvis showed enlarged uterus 13.4 cm, endometrial stripe 0.5 cm, no uterine mass or intrauterine gestation. * CA-125 Ag 74 (H), CEA 1.5 (WNL) * patient s/p 6u of pRBC pre-operatively and an additional unit during her oepration * Coagulation factor panel WNL Plan: * MANAGER HARDWARE Dr Cates consulted; appreciate recommendations: On 10/14 recommended gradual advancement of diet, no transfusion, and H&H monitoring. Clear liquid diet at lunch * s/p successful hysterectomy with resection of the uterus and left fallopian tube * Started megestrol acetate PO 40mg bid * Avoiding chemical anticoagulation #A-fib * Per chart review patient has a history of A-fib and is on Eliquis * EKG showed sinus rhythm with frequent PVCs, QTc 503, rate 97. Plan: * Holding for now in the setting of vaginal bleed #History of anoxic brain injury * Per chart review * Patient has lived at [facility] for 2 years * Precipitation event for anoxic brain injury unknown Plan: * No direct intervention at this time #Asymptomatic Pyuria * Urinalysis showed 14 WBCs, 1+ bacteria, leukocyte esterase positive Plan: * Meropenem IV 1g Q8h started 10/13 and going on until 10/14 #Diabetes * Per chart review * Glucose 218 this AM * HgbA1c 6.6 Plan: * Degludec 12u while patient is NPO (bowel rest) post surgery; half her regular night time dose 24u * insulin sliding scale Q6h * bedside glc checks Q6h #History of CHF? * Per chart review * Patient does not appear to be in acute CHF exacerbation on exam, negative for crackles or pitting edema * No echo on file * Unclear if patient taking diuretics Plan: * Bumex PO 2mg Qday * metoprolol PO 25mg Qday * Atorvastatin PO 40mg HS * No direct intervention at this time Hospital Maintenance: DVT ppx: SCDs, avoiding chemical prophylaxis Diet: diet regular IV lines: Peripheral IVs Hurd?: PureWick Code status: Full code Time Spent with Patient Time: Total time spent is greater than 50% in coordination of care (as documented) at patient's floor/unit and/or counseling patient: Time with patient: 25 - 35 minutes Reason for Continued Stay Reason for continued stay: other Quality Measures Quality Measures VTE prophylaxis
[2025-10-14] MEDS: INSULIN DEGLUDEC 5 UNIT/0.05 ML (PER 5 UNITS) 12 UNIT SC (20:37)
[2025-10-14] MEDS: ATORVASTATIN CALCIUM 20 MG TABLET 40 MG PO (20:37)
[2025-10-15] VITALS (11 sets, daily range): BP systolic 113–126; BP diastolic 67–76; PULSE 55–90; RESP 18–22; TEMP 36.2–37.1; O2SAT 95–98; BMI 63.8
[2025-10-15] MEDS: ACETAMINOPHEN IVPB 1,000 MG/100 ML VIAL 250 MG IV (03:12)
[2025-10-15 06:26] LABS: Basophils # (Auto) 0.1 Thou/mm3 (0.0-0.2); Basophils % (Auto) 0 % (0-2.5); Eosinophils # (Auto) 0.1 Thou/mm3 (0.0-0.5); Eosinophils % (Auto) 1 % (0-10); Hematocrit 32.0 % (36.0-46.0); Hemoglobin 10.1 g/dL (12.0-16.0); Immature Granulocytes Auto 0.05 Thou/mm3 (0.00-0.00); Lymphocytes # (Auto) 2.6 Thou/mm3 (1.0-4.8); Lymphocytes % (Auto) 22 % (10-50); Mean Corpuscular HGB Conc 31.6 g/dl (31.0-37.0); Mean Corpuscular Hemoglobin 26.7 pg (25.0-35.0); Mean Corpuscular Volume 85 fL (80-100); Monocytes # (Auto) 0.9 Thou/mm3 (0.0-0.8); Monocytes % (Auto) 8 % (0-12); Neutrophils # (Auto) 8.1 Thou/mm3 (1.8-7.7); Neutrophils % (Auto) 69 % (37-80); Nucleated Red Blood Cell # 0.00 Thou/mm3 (0.00-0.00); Nucleated Red Blood Cell % 0 /100 WBC (0); Platelet Count 288 Thou/mm3 (140-440); RDW Standard Deviation 46.2 fL (36.4-46.3); Red Blood Count 3.78 Miln/mm3 (4.00-5.20); White Blood Count 11.8 Thou/mm3 (3.6-11.0)
[2025-10-15 06:52] LABS: Alanine Aminotransferase 23 U/L (10-49); Albumin, Serum 3.8 gm/dL (3.5-5.0); Albumin/Globulin Ratio 1.3 (1.2-2.2); Alkaline Phosphatase 112 U/L (46-116); Anion Gap 7 (7-16); Aspartate Amino Transferase 21 U/L (0-34); BUN/Creatinine Ratio 16 Ratio (12-20); Bilirubin,Total 0.7 mg/dL (0.3-1.2); Blood Urea Nitrogen 16 mg/dL (9-23); Calcium 8.9 mg/dL (8.3-10.6); Calcium (Corrected) 9.1 mg/dL (8.5-10.1); Carbon Dioxide 32.2 mMol/L (20.0-31.0); Chloride 101 mMol/L (98-107); Creatinine (Component) 1.0 mg/dL (0.6-1.3); Estimated Creatinine Clearance 90.3 mL/min (>60); Globulin 2.9 gm/dL (2.3-3.5); Glucose 163 mg/dL (74-106); Magnesium 2.0 mg/dL (1.6-2.6); Osmolality,Calculated 284 (275-295); Phosphorous 3.0 mg/dL (2.4-5.1); Potassium 4.0 mMol/L (3.4-5.1); Sodium 140 mMol/L (136-145); Total Protein 6.7 gm/dL (5.7-8.2); eGFR > 60 See Note
[2025-10-15] MEDS: METOPROLOL SUCCINATE XL 25 MG TABCR PO (08:50)
[2025-10-15] MEDS: BUMETANIDE 0.5 MG TABLET 2 MG PO (08:50)
[2025-10-15] MEDS: GABAPENTIN 300 MG CAPSULE PO (08:50)
[2025-10-15] MEDS: DOCUSATE SOD 100 MG CAPSULE PO (08:50)
[2025-10-15] MEDS: ENOXAPARIN SOD INJ 40 MG/0.4 ML SYRINGE SC (08:51)
[2025-10-15] MEDS: POLYETHYLENE GLYCOL 17 GM PACKET PO (12:15)
--- NOTE | 2025-10-15 15:02 | ESDS_ITS ---
<Statement entered by Efren Ness MD - 10/15/25 16:19> I saw and examined patient personally and supervised PGY 1 resident, Dr. Martinez with formulating a discharge plan. I agree with the documentation as listed below. Plan of care discussed with Attending Dr. Reggie Ness MD PGY 2 Disclaimer: This note was dictated by speech recognition. Minor errors in varying exceptionalities teacher may be present due to voice recognition software. Planned Discharge Date 10/15/25 DS: Providers Provider Date of admission: 10/11/25 05:44 Primary care physician: Jeni Rojas MD Admitting Provider: Ruma Ocampo MD Attending Provider on Admission: Inder Renee MD Consults: 10/11/25 05:47 Consult to Gynecology Stat Comment: Acute blood loss anemia secondary to vaginal bleed Consulting Provider: Macie Ellington 10/11/25 10:59 Referral Wound Care Routine Comment: Instructions: Left buttock ulcer 10/12/25 13:38 Consult to Cardiology Stat Comment: Cardiac clearance for sub-total hysterectomy Consulting Provider: Alonzo Braun Attending Provider on DC: Gavin Paredes MD Discharging Provider: Gavin Paredes MD DS: Diagnosis Problem List Completed Was Problem List Reviewed/Reconciled?: Yes Hospital Course Hospital Course Hospital course: Summary: 55-year-old female past medical history of diabetes, CHF, anoxic brain injury, uterine fibroid, and A-fib presented to the ED in the late evening of 10/10/2025 with chief complaint of vaginal bleeding, admitted for bleeding uterine fibroids. Patient presented with 3-day history of vaginal bleeding with clots and associated dizziness. She mentioned that her normal menstrual cycles stopped at age 43 and described them as restarting this year with normal cycles using 5 pads daily for 5 days at a time. Patient has had multiple previous to her vaginal bleeding associated clots but did not follow-up with MANUFACTURING AREA MANAGER. On admission hemoglobin 6.3 hematocrit 12.1 and patient was transfused 2 PRBC. However per MANUFACTURING AREA MANAGER, patient received 4 more units of PRBC for adequate hemoglobin for surgery, and received additional unit during her operation. Patient underwent total hysterectomy with left salpingectomy on 10/13/2025. Following procedure, patient hemoglobin remained stable and was able to tolerate full diet. Of note, on admission patient was noted to have asymptomatic pyuria, urine culture showed ESBL Klebsiella pneumonia patient was given 1 dose of meropenem. On discharge, patient is hemodynamically stable, vital signs and labs reviewed to be stable and patient is ready to be discharged back to [facility]. Imaging: US Pelvis showed enlarged uterus 13.4 cm, endometrial stripe 0.5 cm, no uterine mass or intrauterine gestation. EKG showed sinus rhythm with frequent PVCs, QTc 503, rate 97 Discharge Recommendations: - Please take all medications as prescribed - RESUME Eliquis 2.5 mg twice daily as you are 48 hours post surgery - Continue all home medications except as above - Please follow up with your PCP within one week of discharge - Please follow up with OBGYN within one week of discharge for post surgical monitoring - If your symptoms worsen, please seek immediate medical attention and return to your nearest emergency room. - If you do not have a PCP, you may follow up at the [facility] at [address] [place] [address] [address], [facility] [address], Hospital Diagnoses: #Acute normocytic anemia secondary to postmenopausal bleeding #Bleeding uterine fibroid s/p total hysterectomy and left salpingectomy #Paroxysmal A-fib #History of anoxic brain injury #Asymptomatic Pyuria #UTI, ESBL Klebsiella pneumoniae #IDDM2 #HFpEF (55-60%) Plan of care discussed with attending Dr. Paredes, and PGY-2 Dr. Ness. Shara Martinez, DO Internal Medicine, PGY-1 Time Spent with Patient Time attestation: Total time spent providing and/or coordinating discharge services: Time spent: Greater than 30 minutes Exam Vital Signs Temp Pulse Resp BP Pulse Ox O2 Del Method O2 Flow Rate 97.1 F 90 20 126/72 98 Nasal Cannula 1.5 10/15/25 12:10/15/25 12:10/15/25 12:10/15/25 12:10/15/25 12:10/15/25 12:10/15/25 12:00 Narrative Exam General: Obese woman. Awake and in no acute distress. Conversational and non- toxic appearing. Neurologic: No gross neurological deficit, and patient able to move all 4 extremities. HEENT: Normocephalic, atraumatic, mucous membranes moist. Pupils reactive to light. Heart: Regular rate and rhythm, normal S1 and S2, no murmurs. Lungs: Clear to auscultation bilaterally with no wheezing or crackles. Abdomen: Soft, nondistended. Tenderness to palpation around the surgical site which appears intact. Abdominal binder in place. Extremities: No edema. 2+ radial and dorsalis pedis pulses bilaterally. Skin: Warm. Dry. No rash or ecchymoses. Discharge Plan Plan Patient Disposition: Xfer Skilled Nsg Fac (SNF) Patient condition on transfer: Stable and Benefits outweigh risks Care Plan Goals: Discharge Recommendations: - Please take all medications as prescribed - RESUME Eliquis 2.5 mg twice daily as you are 48 hours post surgery - Continue all home medications except as above - Please follow up with your PCP within one week of discharge - Please follow up with OBGYN within one week of discharge for post surgical monitoring - If your symptoms worsen, please seek immediate medical attention and return to your nearest emergency room. - If you do not have a PCP, you may follow up at the [facility] at [address] [place] [address] [address] [address], Prescriptions/Referrals Prescriptions/Med Rec: Continued ferrous sulfate [Feosol] 325 mg (65 mg iron) tablet 325 mg PO BID Qty: 60 0RF docusate sodium [Colace] 100 mg capsule 100 mg PO BID Qty: 60 0RF magnesium hydroxide 400 mg/5 mL suspension 30 ml PO DAILY acetaminophen [Tylenol] 325 mg tablet 650 mg PO Q6H PRN (Reason: pain) ergocalciferol (vitamin D2) [Vitamin D2] 1,250 mcg (50,000 unit) capsule 1,250 mcg PO QWEEK pantoprazole [Protonix] [address] for susp in packet 40 mg PO QDAY bumetanide 2 mg tablet 2 mg PO QDAY ascorbic acid (vitamin C) 500 mg capsule 500 mg PO DAILY metoprolol succinate [Toprol XL] 25 mg tablet extended release 24 hr 25 mg PO DAILY Patient Comments: hold SBP<11o,Pulse<60 Rx Instructions: 25 mg orally; insulin glargine [Lantus Solostar U-100 Insulin] 100 unit/mL (3 mL) insulin pen 24 unit subcut .COMPLEX Patient Comments: notify MD BS>400 or BS<70 Rx Instructions: 24 units subcutaneously; multivitamin [Daily Multi-Vitamin] Tablet 1 tab PO QDAY magnesium 200 mg tablet 400 mg PO BID melatonin 3 mg capsule 6 mg PO HS PRN (Reason: sleep) albuterol sulfate 2.5 mg /3 mL (0.083 %) solution for nebulization 2.5 mg inhalation BID PRN (Reason: shortness of breath or wheezing) atorvastatin [Lipitor] 40 mg tablet 40 mg PO QPM apixaban 2.5 mg tablet 2.5 mg PO BID gabapentin 300 mg capsule 300 mg PO BID insulin aspart U-100 [Novolog FlexPen U-100 Insulin] 100 unit/mL (3 mL) i nsulin pen 1 sliding scale dose subcut USEASDIRECTD Discontinued tranexamic acid 650 mg tablet 650 mg PO Q8H Qty: 30 0RF Referrals: Dar[facility] ([facility]),Monie Sosa MD [Physician, MANUFACTURING AREA MANAGER] Jeni Rojas MD [Primary Care Provider] Patient/Caregiver Discharge Instructions Discharge Activity: activity as tolerated Other Discharge Activity Instructions:: vaginal rest, no heavy lifting more than 10 pounds for 6 weeks. keep incision clean and dry. Other Discharge Diet Instructions: regular Education Materials: After Abdominal Hysterectomy ... Print Language: Serbian Stand Alone Forms: Shonna Award Info., Patient Portal Info Letter Discharge Order Discharge Orders: Discharge (Routine); Ordered 10/15/25 Ordered By: Efren Ness Quality Discharge Quality Measures VTE prophylaxis Attestestation Attestation I discussed with and supervised the resident physician who took care of this patient. I agree with the assessment and discharge plan as above Follow-up with primary care provider and MANUFACTURING AREA MANAGER as scheduled return to the ER for recurrent symptoms..
--- NOTE | 2025-10-15 15:09 | PD.GYNPROG ---
Documentation for date of: 10/15/25 INFORMATION RESOURCE CONSULTANT Subjective Subjective Interval history: Patient doing well overall. Pain is controlled. She is bed-bound, so non-ambulatory. Voiding spontaneously since castro was removed, no issues (uses adult briefs). Tolerating regular diet without nausea/vomiting. Passing gas. No fevers/chills, no CP/SOB. Exam Vital Signs Temp Pulse Resp BP Pulse Ox O2 Del Method O2 Flow Rate 97.1 F 90 20 126/72 98 Nasal Cannula 1.5 10/15/25 12:00 10/15/25 12:00 10/15/25 12:10/15/25 12:00 10/15/25 12:10/15/25 12:10/15/25 12:00 Narrative Exam General: well developed, well nourished, no acute distress, conversant Cardiac: normal heart rate Lungs: breathing without distress (has nasal O2 in place) Abdomen: soft, obese, non-tender, no rebound or guarding, pfannenstiel incision covered by dry/clean/intact prineo bandage. Incision well reapproximated. No erythema, drainage or induration. Extremities: no edema BLE Urinary Catheter Management Cath placed during this visit: yes, but has since been removed by the nurse Removal date: 10/14/25 Removal time: 14:45 INFORMATION RESOURCE CONSULTANT - PN: Obj Data Labs 10/15/25 05:47 10/15/25 05:47 Labs: Laboratory Results - last 24 hr 10/15/25 05:47 WBC 11.8 H RBC 3.78 L Hgb 10.1 L Hct 32.0 L MCV 85 MCH 26.7 MCHC 31.6 RDW Std Deviation 46.2 Plt Count 288 Neut % (Auto) 69 Lymph % (Auto) 22 Whiteside % (Auto) 8 Eos % (Auto) 1 Baso % (Auto) 0 Neut # (Auto) 8.1 H Lymph # (Auto) 2.6 Whiteside # (Auto) 0.9 H Eos # (Auto) 0.1 Baso # (Auto) 0.1 Immature Gran # (Auto) 0.05 H Absolute Nucleated RBC 0.00 Immature Gran % 0 Nucleated RBC % 0 Sodium 140 Potassium 4.0 Chloride 101 Carbon Dioxide 32.2 H Anion Gap 7 BUN 16 Creatinine 1.0 Estim Creat Clear Calc 90.3 eGFR > 60 BUN/Creatinine Ratio 16 Glucose 163 H D Calculated Osmolality 284 Calcium 8.9 Corrected Calcium 9.1 Phosphorus 3.0 Magnesium 2.0 Total Bilirubin 0.7 AST 21 ALT 23 Alkaline Phosphatase 112 D Total Protein 6.7 Albumin 3.8 Globulin 2.9 Albumin/Globulin Ratio 1.3 INFORMATION RESOURCE CONSULTANT - A/P Assessment and plan (1) S/P total abdominal hysterectomy: Status: Acute Assessment and plan: Edwige is a 55yo F s/p uncomplicated RAY with left salpingectomy to treat menorrhagia causing symptomatic anemia requiring blood transfusions, doing well on POD 2. Vitals wnl, benign exam. Hemodynamically stable with no evidence of infection. Hgb stable 10.1. She has had an uncomplicated post-operative course, meeting all milestones and feels ready for discharge home. She is ambulating without lightheadedness, tolerating regular diet no n/v, spontaneously voiding without issue. She has no chest pain or shortness of breath. No fevers or chills. Pain well controlled. Plan: -Ok to discharge to her care facility -Ok to re-start Eliquis -Regular diet -motrin 800mg PO Q8hr prn pain, norco 5/325mg PO Q6hr prn pain -Encourage use of IS -Follow up with Dr. Cates on 10/18 or 11/01 (patient given Dr. Cates's card to call to schedule appt) -Vaginal rest and no heavy lifting more than 10 pounds for 6 weeks -Discussed wound care instructions (ok to shower, pat dry very well after and keep dry between showers, do not submerge incision). Dressing will be removed in office. -Discussed return precautions. (2) Post-menopausal bleeding: Status: Acute (3) Morbid obesity with BMI of 60.0-69.9, adult: Status: Acute (4) Anemia: Status: Acute (5) History of uterine fibroid: Status: Acute Postoperative Procedures: Procedures Operation Date: 10/13/25 12:00 Actual Procedure Side Surgeon p Abdominal Hysterectomy Monie Cates ([facility])MD Time Spent With Patient Time: Total time spent is greater than 50% in coordination of care (as documented) at patient's floor/unit and/or counseling patient: Time with patient: less than 15 minutes
--- NOTE | 2025-10-15 17:07 | PC.SS ---
Frankfurter Inspector (AMELIA) Lola notified by Dr. Paredes that patient was ready for discharge. AMELIA contacted patient's son, Matt via telephone call. SW informed him that patient is discharging to [facility]. AMELIA completed ADAN for ambulance transportation due to being bedbound and needing O2. Per [facility], patient can return without an authorization. AMELIA scheduled EMS transportation for 1929. AMELIA will notify bedside RN-Apryl.
--- NOTE | 2025-10-15 18:05 | PC.NURSE ---
report called to nurse camilo at [facility] 10/15/25 at 1800. unit number given to nurse if questions arise.
--- NOTE | 2025-10-15 19:56 | PC.NURSE ---
pt transferred via gurney back to [facility]. Pt aware aaox4 and stable. Report given to ambulance personnel.
== END 2025-10-15 19:54 | disposition skilled nursing facility (03) | DRG 519 ==
LOC: SERX 10-11 00:05 → SERHOLD 10-11 06:10 → S2NX 10-11 08:15 → S3NX 10-13 13:03
PROVIDERS: Obstetrics & Gynecology; Admitting Provider Student in an Organized Health Care Education/Training Program; Emergency Provider Emergency Medicine; PCP Hospitalist; Visit Provider Obstetrics & Gynecology
PROC: 0UT90ZZ Resection of Uterus, Open Approach (ICD-10-PCS; principal; 2025-10-13 11:45)
DX: D25.9 Leiomyoma of uterus, unspecified (principal); G93.1 Anoxic brain damage, not elsewhere classified; Z79.01 Long term (current) use of anticoagulants; I48.91 Unspecified atrial fibrillation; I50.9 Heart failure, unspecified; J44.9 Chronic obstructive pulmonary disease, unspecified; K21.9 Gastro-esophageal reflux disease without esophagitis; D62 Acute posthemorrhagic anemia; E11.22 Type 2 diabetes mellitus with diabetic chronic kidney disease; N18.30 Chronic kidney disease, stage 3 unspecified; B96.1 Klebsiella pneumoniae [K. pneumoniae] as the cause of diseases classified elsewhere; E66.813 Obesity, class 3; Z68.44 Body mass index [BMI] 60.0-69.9, adult; K66.0 Peritoneal adhesions (postprocedural) (postinfection); N39.0 Urinary tract infection, site not specified; N73.6 Female pelvic peritoneal adhesions (postinfective); Z16.12 Extended spectrum beta lactamase (ESBL) resistance; Z74.01 Bed confinement status; Z79.4 Long term (current) use of insulin; Z79.84 Long term (current) use of oral hypoglycemic drugs; Z86.73 Personal history of transient ischemic attack (TIA), and cerebral infarction without residual deficits; Z87.892 Personal history of anaphylaxis; Z88.0 Allergy status to penicillin; Z98.891 History of uterine scar from previous surgery; I50.30 Unspecified diastolic (congestive) heart failure; M21.379 Foot drop, unspecified foot; N93.8 Other specified abnormal uterine and vaginal bleeding; M19.90 Unspecified osteoarthritis, unspecified site
CPT/HCPCS: 36415; 36430; 76856; 80053; 81001; 82378; 83036; 83735; 84100; 84484; 84703; 85014; 85018; 85025; 85384; 85610; 85730; 86304; 86850; 86870; 86900; 86901; 86921; 86922; 86927; 87077; 87086; 87186; 93005; 93225; 93306; 94664; 96360; 99284; A4314; A4649; J0131; J0736; J1100; J1171; J1580; J1650; J1815; J2185; J2405; J2704; J2765; J3010; J3475; J3490; J7050; J7999; P9016; P9060; A9270; J1805

== ENCOUNTER 2025-10-28 13:38 | Outpatient (AMB) | payer MEDICAID, SELFPAY ==
--- NOTE | 2025-10-28 13:58 | GYNCLNT_ITS ---
Vital Signs 10/28/25 13:59 BP 107/57 L Blood Pressure Source Automatic Cuff Blood Pressure Location Right Lower Arm Position Supine Respiration 18 Pulse 88 Pulse Source Monitor Temp 97.9 F Temp Source Temporal Artery Scan Pulse Oximetry (%) 95 Oxygen Delivery Method Room Air Allergies/Home Meds Allergies & Medications Allergies Penicillins Allergy (Verified 10/28/25 14:00) Medication Reconciliation docusate sodium 100 mg capsule (Colace) 100 mg PO BID #60 caps 08/14/25 [Rx Confirmed 10/28/25] ferrous sulfate 325 mg (65 mg iron) tablet (Feosol) 325 mg PO BID #60 tabs 08/14/25 [Rx Confirmed 10/28/25] acetaminophen 325 mg tablet (Tylenol) 650 mg PO Q6H PRN pain 10/11/25 [History Confirmed 10/28/25] albuterol sulfate 2.5 mg/3 mL (0.083 %) solution for nebulization 2.5 mg inhalation BID PRN shortness of breath or wheezing 10/11/25 [History Confirmed 10/28/25] apixaban 2.5 mg tablet 2.5 mg PO BID 10/11/25 [History Confirmed 10/28/25] ascorbic acid (vitamin C) 500 mg capsule 500 mg PO DAILY 10/11/25 [History Confirmed 10/28/25] atorvastatin 40 mg tablet (Lipitor) 40 mg PO QPM 10/11/25 [History Confirmed 10/28/25] bumetanide 2 mg tablet 2 mg PO QDAY 10/11/25 [History Confirmed 10/28/25] ergocalciferol (vitamin D2) 1,250 mcg (50,000 unit) capsule (Vitamin D2) 1,250 mcg PO QWEEK 10/11/25 [History Confirmed 10/28/25] gabapentin 300 mg capsule 300 mg PO BID 10/11/25 [History Confirmed 10/28/25] insulin aspart U-100 100 unit/mL (3 mL) subcutaneous pen (Novolog FlexPen U-100 Insulin aspart) 1 sliding scale dose subcut USEASDIRECTD 10/11/25 [History Confirmed 10/28/25] insulin glargine 100 unit/mL (3 mL) subcutaneous pen (Lantus Solostar U-100 Insulin) 24 unit subcut .COMPLEX 10/11/25 [History Confirmed 10/28/25] magnesium 200 mg tablet 400 mg PO BID 10/11/25 [History Confirmed 10/28/25] magnesium hydroxide 400 mg/5 mL oral suspension 30 ml PO DAILY constipation 10/11/25 [History Confirmed 10/28/25] melatonin 3 mg capsule 6 mg PO HS PRN sleep 10/11/25 [History Confirmed 10/28/25] metoprolol succinate 25 mg tablet,extended release 24 hr (Toprol XL) 25 mg PO DAILY 10/11/25 [History Confirmed 10/28/25] multivitamin (Daily Multi-Vitamin tablet) 1 tab PO QDAY 10/11/25 [History Confirmed 10/28/25] pantoprazole 40 mg granules delayed-release for susp in packet (Protonix) 40 mg PO QDAY 10/11/25 [History Confirmed 10/28/25] Intake Visit Data Collection New Patient or Established: Established Patient (seen at [facility] within 3 years) Reason for Visit:: POST OP Seen by Clinical Staff ONLY (RN/MA): No Speech Language Pathologist Prn Required: No Do You Feel Safe at Home: Yes Authorities Contacted: N/A PCP or OBGYN visit in last 3 months: Yes Date of Last PCP or OBGYN visit: 10/15/25 Hx Now: No Pain Present Currently: No Pain Scale Used: Jackson-Oakes/Numerical Pain scale:: 0 Smoking Status Smoking Status: Never smoker Immunizations Flu Vaccine in the Last 12 Months: No Flu Vaccine Exclusion Criteria: No Exclusion Criteria Automatic Hemmer history Automatic Hemmer History Menstrual regularity: irregular Flow: heavy Monthly: Yes Menopausal: No Currently sexually active: No If not currently sexually active, have you ever been sexually active: Yes Additional comments: Patient currently resides at a long-term facility and is not sexually active 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: Past Medical History Past Medical History: Yes Hx Anemia Additional Operations/Hospitalizations (year & reason): Previous x 3 Open umbilical hernia repair Menopausal bleeding over the last 2 to 3 years, requiring multiple trips to the emergency room and multiple blood transfusions Recent total abdominal hysterectomy left salpingectomy 10/13/2025 Other Relevant History: CHF COPD on 3 L of O2 History of a CVA Anoxic brain injury Chronic kidney disease stage III GERD Arthritis History of A-fib on blood thinners Type 2 diabetes Foot drop Morbid obesity with BMI of 64 Questionnaires Covid-19 Vaccine Questionnaire Has patient been vacinated for Covid-19 Have you been vacinated for Covid-19: No PHQ-9 PHQ-2 Over the last 2 weeks, how often have you been bothered by any of the following problems? 1. Little interest or pleasure in doing things: not at all 2. Feeling down, depressed, or hopeless: not at all Total score: 0 PHQ-9 3. Trouble falling or staying asleep, or sleeping too much: Not at all 4. Feeling tired or having little energy: Not at all 5. Poor appetite or overeating: Not at all 6. Feeling bad about yourself - or that you are a failure or have let yourself or your family down: Not at all 7. Trouble concentrating on things, such as reading the newspaper or watching television: Not at all 8. Moving or speaking so slowly that other people could have noticed? - Or the o pposite - being so fidgety or restless that you have been moving around a lot more than usual: not at all 9. Thoughts that you would be better off or of hurting yourself in some way: Not at all Total score: 0 If you checked off any problems, how difficult have these problems made it for you to do your work, take care of things at home, or get along with other people?: not difficult at all Source: Developed by Drs. Nick Robertson, Lizzette Gilmore, Henri Diaz and colleagues, with an educational adiel from [employer] Depression screen completed yes Social History Living Situation History Marital Status: Unknown Lives With: Caregiver Housing: Group Home Housing Other:: Pt is from [facility] Tobacco History Smoking Status: Never smoker Second Hand Smoke Exposure: No Alcohol History Alcohol Intake: Never Substance Use History Substance Use: Denies Domestic Abuse History Do You Feel Safe at Home: Yes History of Present Illness HPI Narrative Patient is a 55-year-old multiparous patient with post menopausal bleeding over the last 2 to 3 years. She resides at [facility]. She had 3 C- sections and hernia repair in the past. She is unsure if she has mesh in place. She has multiple chronic medical problems including anoxic brain injury, CHF, COPD, stage III chronic kidney disease, GERD, arthritis, type 2 diabetes, A-fib on blood thinners and currently is on 3 L of oxygen even in the convalescent hospital she resides. She is morbidly obese with a BMI of 64. Patient presents for her own medical decisions. She cannot ambulate because she has some type of foot drop in one of her legs. Patient has been to the emergency room multiple times over the last 2 to 3 years and has been treated multiple times since January 2023 with blood transfusions for vaginal bleeding. I was consulted on her 10/11/2025 and saw the patient. At the time of leaving lobe was 6. She got 6 units of blood and her hemoglobin was 9.5. As patient continued to bleed she was consented for emergent hysterectomy. This was performed 10/13/2025. Patient underwent a total abdominal hysterectomy with left salpingectomy. Dr. Weber was the dental assistant instructor surgeon on the case. Patient's postoperative course was uncomplicated and she went home 2 days later in stable condition. She presents today on 10/28/2025 for a postop check. She came from [facility] in a wheelchair. Her 19-year-old son is present at her postop check. Her postoperative check, patient is pleasant and cooperative. She is sitting comfortably in her wheelchair. She states she is not having any vaginal bleeding. No foul discharge. Abdomen is soft and her incision is clean dry and intact. Her pathology was reviewed with her today revealing no signs of carcinoma. She did have atypical endometrial hyperplasia but no invasion. Left fallopian tube was normal. The uterus weighed 270 g. The patient is overall very happy with her recovery. Review of Systems Constitutional Comments: No pain. No fevers. No chills. No foul vaginal discharge. No heavy vaginal bleeding. The patient is tolerating a general diet voiding and having bowel movements. Exam General Limitations: physical limitation (Patient is in wheelchair.) General Appearance: in no apparent distress, comfortable, cooperative and obese Abdominal Abdominal exam: Present soft and scar (Pfannenstiel skin incision healing well with no signs of infection.) Results Objective Laboratory: Pathology report from 10/11/2026 reviewed with the patient and her son. Office Procedures [facility] LOC & Office Proc's Nursing/Assessment Patient Status: Established Patient [facility] Nursing Assessment: Medication Reconciliation, Update PMH in EMR and Vital Signs [facility] Clinic Coordination of Care: Complex Care and Chronic Disease 1-5, Education Complex Pt/Fam, Consent,records obtained, informed consent, Lab and Imaging orders, Results/Orders obtained and Staff clarify orders Established Patient Charge Established Patient Point Assignment: 110 Established Patient Point Charge: EP Level 3 (80-115) Assessment & Plan Diagnosis / Problem List (1) S/P total abdominal hysterectomy: Status: Acute Assessment and Plan: No heavy lifting tampons intercourse x 4 more weeks. (2) Post-menopausal bleeding: Status: Acute Assessment and Plan: Resolved status post total abdominal hysterectomy (3) Morbid obesity with BMI of 60.0-69.9, adult: Status: Acute Assessment and Plan: Continue care with [facility]. Continue multiple medications.
[2025-10-28 13:59] VITALS: BP 107/57; PULSE 88; RESP 18; TEMP 36.6; O2SAT 95
== END 2025-10-28 14:03 | disposition home or self-care (01) ==
LOC: HODSOBC 13:38
PROVIDERS: PCP Hospitalist; Referring Provider Hospitalist; Supervising Provider Obstetrics & Gynecology; Visit Provider Obstetrics & Gynecology
DX: Z48.816 Encounter for surgical aftercare following surgery on the genitourinary system (principal); Z90.710 Acquired absence of both cervix and uterus; E66.01 Morbid (severe) obesity due to excess calories; Z68.44 Body mass index [BMI] 60.0-69.9, adult; E11.22 Type 2 diabetes mellitus with diabetic chronic kidney disease; N18.30 Chronic kidney disease, stage 3 unspecified; J44.9 Chronic obstructive pulmonary disease, unspecified; I50.9 Heart failure, unspecified; I48.91 Unspecified atrial fibrillation; M21.379 Foot drop, unspecified foot; Z86.73 Personal history of transient ischemic attack (TIA), and cerebral infarction without residual deficits; Z99.81 Dependence on supplemental oxygen; Z79.4 Long term (current) use of insulin; Z79.01 Long term (current) use of anticoagulants; Z79.899 Other long term (current) drug therapy; Z88.0 Allergy status to penicillin
CPT/HCPCS: 99213; G0463